=== PATIENT | male | born 1955 | race Caucasian/White ===

== ENCOUNTER 2023-02-15 11:35 | Outpatient (CLI) | payer MEDICARE, SELFPAY | END 2023-02-15 11:36 | disposition home or self-care (01) | LOC: NFLDREF 02-18 12:40 | PROVIDERS: PCP Family Medicine; Referring Provider Family Medicine; Visit Provider Internal Medicine | DX: I25.10 Atherosclerotic heart disease of native coronary artery without angina pectoris (principal); I11.0 Hypertensive heart disease with heart failure; I50.812 Chronic right heart failure; I65.29 Occlusion and stenosis of unspecified carotid artery; Z95.1 Presence of aortocoronary bypass graft; I20.89 Other forms of angina pectoris | CPT/HCPCS: 80061 ==

== ENCOUNTER 2023-02-26 07:49 | Outpatient (CLI) | payer MEDICARE, OTHER, SELFPAY ==
[2023-02-26] MEDS: SODIUM CHLORIDE 0.9 % (FLUSH) 10 ML SYRINGE IVF (09:21)
[2023-02-26] MEDS: REGADENOSON 0.4 MG/5 ML SYRINGE IVP (09:21)
[2023-02-26 09:25] VITALS: BP 147/81; PULSE 61; RESP 16
--- NOTE | 2023-02-26 11:20 | W.PM.STED ---
Stress Test Note Date Date of test: 02/26/23 Providers Primary care provider: Jesus Perez Stress test physician: Rakesh Cisse Stress Test Note Stress test ordered: Lexiscan Indication for test: Coronary disease Stress test medicine: Lexiscan Results discussion: Patient is a very nice 68-year-old gentleman who presents for the above test after discussion the risks benefits and side effects he would like to proceed cardiac stress test medical history form is reviewed entirely. Pretest EKG shows normal sinus rhythm, ventricular rate is 53, blood pressure 153/81. Occasional PVCs are noted, there is some ST wave elevation noted inferiorly and laterally, 1 mm noted on the baseline tracing. Standard Lexiscan protocol is done over a time course of 5 minutes. He tolerated this well and was asymptomatic, review of the tracing showed no evidence of any ST wave irregularities, or dysrhythmias. Impression: Negative electrographic portion of Lexiscan Follow up suggested: Await nuclear images these will be read by Cardiology and nuclear Medicine, patient was asymptomatic and left this testing facility in good condition. Clinical correlation will be needed with the remainder of the information.
== END 2023-02-26 10:06 | disposition home or self-care (01) ==
LOC: STRESS 07:54
PROVIDERS: PCP Family Medicine; Visit Provider Family Medicine
DX: I65.29 Occlusion and stenosis of unspecified carotid artery (principal); Z95.1 Presence of aortocoronary bypass graft; I20.89 Other forms of angina pectoris
CPT/HCPCS: 78452; 93016; 93017; A9500; J2785

== ENCOUNTER 2023-03-22 07:53 | Outpatient (CLI) | payer MEDICARE, OTHER, SELFPAY | END 2023-03-22 07:54 | disposition home or self-care (01) | LOC: RAD 07:54 | PROVIDERS: PCP Family Medicine; Visit Provider Internal Medicine | DX: I50.812 Chronic right heart failure (principal); I35.1 Nonrheumatic aortic (valve) insufficiency; I07.1 Rheumatic tricuspid insufficiency; I11.0 Hypertensive heart disease with heart failure | CPT/HCPCS: 93306 ==

== ENCOUNTER 2023-05-14 07:57 | Outpatient (CLI) | payer MEDICARE, OTHER, SELFPAY ==
--- OUTSIDE RECORDS SUMMARY | 2023-05-17 14:43 | XMS_ITS | Clinical Summary ---
Author Name Unknown Organization [facility] [employer] Address [place], [place] [address] Care Team Providers Care Press Operator [employer] Name Role Phone Zunilda Arroyo NP Unavailable [phone] Zunilda Arroyo NP Primary Care Provider Allergies Active Allergy Reactions Criticality Noted Date Comments Jeffry Inhibitors Cough High 12/08/2013 Amoxicillin *Unknown,Rash High 12/27/2011 Ampicillin *Unknown Cephalosporins *Unknown,Rash High 05/11/2013 Per allergy testing in [place] [facility] Dust Mite Cough Medium 12/27/2011 Levofloxacin Itching,Rash Low 04/03/2019 Niacin *Unknown OK if using the Flush Free Penicillins Rash Prednisone *Unknown 04/10/2019 Caused damage to retina/eye, was on long-term Medications Medication Sig Dispensed Refills Start Date End Date Status MULTIVITAMIN TAB take 1 tablet by oral route once daily with food 0 01/08/2006 Active sildenafil citrate (VIAGRA) 50 mg tablet Take 50 mg by mouth. 0 09/17/2017 Active fluticasone (50 mcg per actuation) nasal solution (FLONASE) Inhale 1 [place] in the nostril(s). 0 02/13/2019 Active diclofenac topical (VOLTAREN) 1 % gel Apply 2 g topically to affected area(s). 0 05/08/2019 Active acetaminophen (TYLENOL EXTRA STRGTH) 500 mg tablet Take 500-1,000 mg by mouth. 0 02/13/2019 Active mycophenolate (CELLCEPT) 250 mg capsule Takes 2 po in morning and 1 po in the evening. 0 02/11/2020 Active metoprolol tartrate (LOPRESSOR) 50 mg tabletIndications:Ath erosclerosis of coronary artery, angina presence unspecified, unspecified vessel or lesion type, unspecified whether [place] or transplanted heart Take 1 Tablet (50 mg) by mouth 2 times daily. 270 tablet. 3 07/21/2020 Active tacrolimus (PROGRAF) 0.5 mg capsule Take 0.5 mg by mouth once daily in the evening. 0 10/14/2020 Active tacrolimus (PROGRAF) 1 mg capsule Take 1 mg by mouth once daily in the evening. 0 10/14/2020 Active calcium carbonate-vitamin D3, 600 mg-400 unit, 600 mg-10 mcg (400 unit) tabletIndications:Ost eopenia, unspecified location Take 1 Tablet by mouth once daily with a meal. 200 tablet. 4 08/23/2021 Active aspirin (ECOTRIN) 81 mg enteric coated tablet Take 1 Tablet (81 mg) by mouth once daily with a meal. 0 Active magnesium oxide (MAG-OX 400) 400 mg tabletIndications:Hyp omagnesemia Take 1 Tablet (400 mg) by mouth two times daily. 1 Tablet 0 01/22/2022 Active nitroglycerin (NITROSTAT) 0.4 mg sublingual tabletIndications:Pre sence of aortocoronary bypass graft PLACE 1 TABLET UNDER THE TONGUE EVERY 10 MINUTES NEEDED FOR CHEST PAIN. 25 Tablet 11 01/23/2022 Active sour smart extract (Tart Smart Extract) 1,000 mg cap Take by mouth. 0 04/03/2022 Active albuterol HFA (PRO-AIR; VENTOLIN; PROVENTIL) 90 mcg/actuation inhalerIndications:Wh eezing Inhale 1-2 Puffs by mouth every 4 hours if needed for Shortness Of Breath. 1 Each 0 08/22/2022 Active allopurinoL (ZYLOPRIM) 100 mg tabletIndications:Gou t, unspecified cause, unspecified chronicity, unspecified site Take 1 Tablet (100 mg) by mouth two times daily. 180 Tablet 2 08/28/2022 Active colchicine 0.6 mg tabletIndications:Gou t, unspecified cause, unspecified chronicity, unspecified site TAKE 1 TABLET (0.6 MG) BY MOUTH AT ONSET OF GOUT, THEN TAKE 1 TABLET 2 HOURS LATER. 8 Tablet 2 08/28/2022 Active famotidine (PEPCID) 20 mg tablet Take 1 Tablet (20 mg) by mouth 2 times daily if needed. 0 08/28/2022 Active ferrous sulfate, 65 mg elemental, tabletIndications:Low ferritin level,RLS (restless legs syndrome) Take 1 Tablet (325 mg) by mouth every Saturday, Saturday and Saturday. 180 Tablet 3 08/28/2022 Active furosemide (LASIX) 20 mg tabletIndications:Ped al edema Take 1 Tablet (20 mg) by mouth every morning. 90 Tablet 3 08/28/2022 Active rOPINIRole (REQUIP) 0.5 mg tabletIndications:PLM D (periodic limb movement disorder) Take 3 Tablets (1.5 mg) by mouth at bedtime. 270 Tablet 3 10/24/2022 Active amLODIPine (NORVASC) 5 mg tabletIndications:Acq uired renal artery stenosis (HC) Take 1 Tablet (5 mg) by mouth once daily. 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 amiodorone x 1 month then DC. Gastroesophageal reflux disease 02/13/2019 Overview: EDG 2020 reactive gastropathy, negative bx Nondependent alcohol abuse, in remission 019 Overview: Quit June 2017 Quit June 2017 Stenosis of left carotid artery 08/22/2018 Overview: U/s June 2022- mild less than 50%. 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, end- stage renal disease and renal transplant in 2013 Immunodeficiency due to drugs 09/20/2017 Osteopenia of multiple sites 08/10/2016 Overview: BMD apr 2019 [place] Visual field defect 01/06/2016 Basal cell papilloma 06/30/2015 Multiple benign melanocytic nevi 06/30/2015 Tear film insufficiency 11/09/2013 Allergy status to penicillin 05/11/2013 Acquired renal artery stenosis 04/07/2010 Overview: Left Renal Artery Stenosis dx at [facility] 10-17-2010 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 Systemic lupus erythematosus 12/12/2006 DYSLIPIDEMIA 01/08/2006 Overview: FAMILY HISTORY OF PREMATURE CARDIOVASC DIS (ISCH EMIC) 01/08/2006 Arteriosclerosis of coronary artery 04/25/2005 Overview: Stenting of the proximal LAD at the [facility] in February of 1997 Left Renal Artery Stenosis dx at [facility] 10-17-2010 Added automatically from request for surgery [id number] Last Assessment & Plan: PCI/stent LAD 1996. CABG January 2019 Left Renal Artery Stenosis dx at [facility] 10-17-2010 Added automatically from request for surgery [id number] Last Assessment & Plan: PCI/stent LAD 1996. Immunosuppressed status Resolved Problems Problem Noted Date Diagnosed Date Resolved Date Acute pericarditis 10/07/2019 0 Bradycardia, sinus 02/17/2019 0 Overview: Last Assessment & Plan: Provoked- during hospitalization post CABG january 2019. amiodorone x 1 month then DC. Encounters Date Type Department Care Team Description 04/16/2023 Refill [facility] [address] [place] [address] Zunilda Arroyo, FIRST BEATER Refill Request [facility]) [facility] [address] [place] [address] Nas Marie NP Refill Request (Amlodipine) 03/25/[address] [place] [address] Curtis Ruiz MD Results 03/22/2023 8:00 AM TECHNICAL OPERATIONS MANAGER Ancillary Procedure [facility] [address] [place] [address] 03/22/2023 Travel 02/27/[address] [place] [address] Curtis Ruiz MD Results 02/26/2023 8:30 AM TECHNICAL OPERATIONS MANAGER Ancillary Procedure [facility] [address] [place] [address] 02/15/2023 11:00 AM CDT Office Visit [facility] [address] [place] [address] Curtis Ruiz MD from Last 3 Months Immunizations Name Administration Dates Next Due AMB Influenza, IIV4 PF (=>6 mos Flulaval,Fluzone Fluarix)(Flu Clinic Only) 02/09/2020 COVID-19 vaccine (Moderna 100mcg/0.5mL) PF, MDV 09/20/2021,05/15/2021 COVID-19 vaccine (Loaded Commerce Qwilr 30mcg/0.3mL) PF, MDV 06/03/2020,05/13/2020 DT (Age < 7 years) 08/20/2002 Hepatitis A (Adult) 06/29/2015,03/26/2013 Hepatitis B (Adult) 04/23/2013 Hepatitis B, Unspecified 04/23/2013 Influenza A (H1N1), Inactiva ninoska (Age >=3 Years) 05/11/2009 Influenza RIV4 (Age 18+ Year s) PRESERV FREE 02/01/2022 Influenza Virus, Unspecified 01/18/2017, 02/03/2016,01/20/2015,2013,02/05/2013,01/21/2012,02/20/2011,1 ,02/23/2010,12/21/2009, 009,03/06/2007,02/11/2004 Influenza, High-dose Inactivated 01/30/2019 Influenza, IIV3 (Age 6-35 mos) 12/21/2009 Influenza, IIV3 (Age >=3 years) 01/12/2012,01/26,02/11/2004 Influenza, IIV4 01/18/2017,02/03/2016 Influenza, IIV4 (=>6mos) MDV 02/14/2018,01/21/20 15 Influenza, Inactivated AIIV4 (Age 65+ Years) Preserv Free 01/27/2021 MMR 09/18/1996 Pneumococcal Poly,23-Valent (Pneumovax) 03/23/2021,02/05/2013,04/22/2009,1998 Pneumococcal conj 13-Valent (Prevnar 13) 06/29/2015 Pneumococcal conj 7-Valent ( Prevnar 7) 04/25/1998 Recombivax Hb (dialysis) 06/29/2015,03/26/2013 TD, UNSPECIFIED 04/22/2005 Td (Age >=7 Years) 10/05/2011, 6,08/20/2002,1990 Tdap 02/05/2013,04/22/2005 Zoster (Shingrix-RZV, recombinant) 08/22/2018, Zoster (Zostavax-ZVL, live) 03/26/2013 Family History Medical History Relation Name Comments Coronary artery disease Brother 1 Edward Heart attack Brother 1 Edward Rheum arthritis Brother 1 Edward Rheum arthritis Brother 2 Abdulaziz Coronary artery disease Brother 3 Carlos Coronary artery disease Brother 4 Chuck Coronary artery disease Brother 5 Yan Heart attack Brother 5 Yan Colon polyps Brother 6 Ismael Coronary artery disease Father Edward Heart attack Father Edward Coronary artery disease Paternal Grandfather Edward Heart attack Paternal Grandfather Edward Cancer-ovarian Sister Relation Name Status Comments Brother 1 Edward Brother 2 Abdulaziz Brother 3 Carlos Brother 4 Chuck Brother 5 Yan Brother 6 Ismael Alive Father Edward Paternal Grandfather Edward Sister Social History Tobacco Use Types Packs/Day Years Used Date Smoking Tobacco: Never Smokeless Tobacco: Never Alcohol Use Standard Drinks/Week Comments Not Currently 0 (1 standard drink = 0.6 oz pur e alcohol) PHQ-2 Answer Date Recorded PHQ-2 TOTAL SCORE 1 08/28/2022 Social Connections Answer Date Recorded Frequency of Communication with Friends and Fami ly Not on file 04/12/2021 Financial Resource Strain Answer Date R ecorded Difficulty of Paying Living Expenses Not on file 04/12/2021 Difficulty of Paying Living Expenses Not on file 04/12/2021 Sex and Gender Information Value Date Recorded Sex Assigned at Male 05/26/2020 10:46 PM TECHNICAL OPERATIONS MANAGER Gender Identity Male 05/26/2020 10:46 PM TECHNICAL OPERATIONS MANAGER Sexual Orientation Straight 05/26/2020 10 :46 PM TECHNICAL OPERATIONS MANAGER Obstetrics History Last Filed Vital Signs Vital Sign Reading Time Taken Comments Blood Pressure 134/70 08/28/2022 7:54 AM CDT Pulse 56 08/28/2022 7:54 AM CDT Temperature 36.6 ??C (97.9 ??F) 08/28/2022 7:54 AM CD T Respiratory Rate 16 08/28/2022 7:54 AM CDT Oxygen Saturation 98% 08/28/2022 7:54 AM CDT Inhaled Oxygen Concentration - - Weight 87.5 kg (192 lb 14.4 oz) 08/28/2022 7:54 AM CDT Height 175.5 cm (5' 9.09) 08/28/2022 7:54 AM CD T Body Mass Index 28.41 08/28/2022 7:54 AM CDT Plan of Treatment Health Maintenance Due Date Last Done Comments Influenza for age 65+ 12/21/2022 02/01/2022 , 01/27/2021, 02/09/2020, Additional history exists Tetanus booster 02/05/2023 02/05/2013, 09/20, 04/22/2005, Additional history exists COVID-19 vaccine series ( season) 2023 01/22/2023, 10/11/2022, 02/01/2022, Additional history exists Medicare Wellness for age 65+ 08/28/2023 08/28/2022, 08/23/2021, 06/13/2020 BMI (ht and wt on same day) for age 18+ 08/29/2023 08/28/2022, 04/03/2022, 01/10/2022, Additional history exists Depression screening for age 12+ 08/29/2023 08/28/2022, 08/23/2021, 06/21/2020, Additional history exists Lipids for age 45-75 07/11/2026 07/11/2021, 06/08/2020, 05/07/2019 (Verified in Care Everywhere or Patient Record), Additional history exists Colonoscopy through age 75 11/23/203011/23, 10/22/2011, 10/22/2011 (Verified in Care Everywhere or Patient Record) Tdap Completed 02/05/2013, 04/22/2005 Zoster (shingles) series for age 50+ Completed 08/22/2018, 03/28/2018, 03/26/2013 Hepatitis C screening for age 18-79 Addressed 10/05/2019 (Verified in Care Everywhere or Patient Record) Overridden with the intention of not completing the topic Pneumococcal series for age 65+ Completed 03/23/2021, 06/29/2015, 02/05/2013, Additional history exists Procedures Procedure Name Priority Date/Time Associated Diagnosis Comments ECHO TTE COMPLETE WO CONTRAST Routine 03/22/2023 8:50 AM TECHNICAL OPERATIONS MANAGER Chronic right heart failure (HC) NM CARDIAC MPI STRESS TEST Routine 02/26/2023 2:33 PM TECHNICAL OPERATIONS MANAGER Occlusion and stenosis of unspecified carotid artery from Last 3 Months Results * ECHO TTE COMPLETE WO CONTRAST (03/22/2023 8:50 AM TECHNICAL OPERATIONS MANAGER) AORTIC VALVE MEAN PG 5 mmHg EJECTION FRACTION 72 % PEAK TR VELOCITY 2.2 m/s LVEDD 4.8 cm EJECTION FRACTION 60 - 65% Anatomical Region Laterality Modality Ultrasound 03/22/2023 8:12 AM TECHNICAL OPERATIONS MANAGER Narrative 03/22/2023 9:02 AM TECHNICAL OPERATIONS MANAGER ECHOCARDIOGRAM JARETT GUPTA ?Accession#: ?? [id number] : ?1955 68 years Study Date: ?? 03/22/2023 8:12:56 AM Gender: M ? BP: ? 134/70 mmHg Height: 175.00 cm ? BSA: ?2.03 m? ? ? Weight: 87.00 kg ?Tech: ? MTS ?Referring MD: CURTIS RUIZ Site: ? [facility] Reading Location: MOBILE OP Patient Location: Outpatient. Procedure: 2D, Color Doppler and Spectral Doppler. Indication for study: Chronic right heart failure (HC) Cardiac Rhythm: Regular.Study quality: Good. Final Impressions: 1. Normal LV size, normal wall thickness, normal global systolic function with an estimated EF of 60 - 65%. 2. Right ventricular cavity size is normal, global systolic RV function is borderline reduced. 3. The aortic valve is sclerotic and trileaflet, no stenosis and trivial regurgitation. 4. Normal estimated pulmonary pressures by tricuspid regurgitation velocity and right atrial pressure (20 mmHg plus RAP). Comparison Compared to prior exam of 10/17/2021, there has been no significant change. Chamber Sizes and Function Normal left ventricular size, normal wall thickness, normal global systolic function with an estimated EF of 60 - 65%. Left atrial size is normal. Right ventricular cavity size is normal, global systolic RV function is borderline reduced. The right atrium is normal. Right atrial volume index is 20 ml/m? ? ?. Right atrial area is 19 cm? ? ?. The pulmonary artery is of normal size and origin. The sinus of Valsalva is normal sized. The ascending aorta is normal sized. Valves, RV Pressures and Diastolic Function The aortic valve is sclerotic and trileaflet, no stenosis and trivial regurgitation. The mitral valve is normal in structure, trace mitral regurgitation. Indeterminate pattern of LV diastolic filling. The tricuspid valve is normal in structure. Tricuspid regurgitation is trace regurgitation. The tricuspid regurgitant velocity is 2.2 m/s, the estimated right ventricular systolic pressure is 20 mmHg plus right atrial pressure. There is normal estimated pulmonary pressure by tricuspid regurgitation velocity and right atrial pressure. The pulmonic valve is normal. Trace pulmonary regurgitation. Masses, Effusion, Shunts There is no pericardial effusion. The inferior vena cava is normal sized, respiratory size variation greater than 50%. No left to right shunting was detected by limited color flow Doppler interrogation of the interatrial septum. MEASUREMENTS AND CALCULATIONS 2-D Measurements and LV Function: LVID (d) 4.8 cm LV FS% (2D) ?? 36 % LVID (s) 3.1 cm LVOT diameter 2.6 cm IVS (d) ??1.0 cm HR ?62 bpm LVPW (d) 1.1 cm LA Vol index ??27 ml/m2 Ao Sinus 3.7 cm RA Vol index ??20 ml/m2 Asc Ao ?? 3.8 cm RA area ? 19 cm? ? ? LA ? 3.9 cm RV Max 4C (d) 4.5 cm Diastology: Mitral ?Tissue Doppler ?Pulmonary veins E Peak 0.4 m/s ??e', Septum ? 0.05 m/s Pulm s ?44.1 cm/s A Peak 0.7 m/s ??e', Lateral ?0.09 m/s Pulm d ?38.0 cm/s E/A ?0.6 ?E/e' Average ?? 5.90 ? Pulm s/d ratio ??1.16 DT ? 456 msec Aortic Valve: Vmax ? 1.5 m/s ??CELESTE (V) ?? 2.95 cm? ? ? VTI ?0.33 m ?? CELESTE (I) ?? 2.66 cm? ? ? LVOT V max 0.8 m/s ??Max PG ?9 mmHg LVOT VTI ?? 0.16 m ?? Mean PG ?? 5 mmHg SV ? 88 ml ?Dim Index 0.50 SV index ?? 43 ml/m? ? ? CO ?5.4 l/min ?CI ?2.7 l/min/m? ? ? Mitral Valve: MVA ?1.7 cm? ? ? MV P 1/2 132 msec Tricuspid Valve and estimated PA pressures: TR Vmax 2.2 m/s TR maxG 20 mmHg Pulmonic Valve: PIEDV 1.2 m/s . This study was interpreted by an [facility] accredited facility. CC: [facility] ([facility]. ??Final ?? Procedure Note Parveen Jaimes MD - 03/22/2023 ECHOCARDIOGRAM JARETT GUPTA : 1955 68 years Study Date: 03/22/2023 8:12:56 AM Gender: M BP: 134/70 mmHg Height: 175.00 cm BSA: 2.03 m? ? ? Weight: 87.00 kg Tech: [facility] Referring MD: CURTIS RUZI Site: [facility] Reading Location: MOBILE OP Patient Location: Outpatient. Procedure: 2D, Color Doppler and Spectral Doppler. Indication for study: Chronic right heart failure (HC) Cardiac Rhythm: Regular.Study quality: Good. Final Impressions: 1. Normal LV size, normal wall thickness, normal global systolic functionwith an estimated EF of 60 - 65%. 2. Right ventricular cavity size is normal, global systolic RV functionis borderline reduced. 3. The aortic valve is sclerotic and trileaflet, no stenosis and trivialregurgitation. 4. Normal estimated pulmonary pressures by tricuspid regurgitationvelocity and right atrial pressure (20 mmHg plus RAP). Comparison Compared to prior exam of 10/17/2021, there has been no significantchange. Chamber Sizes and Function Normal left ventricular size, normal wall thickness, normal globalsystolic function with an estimated EF of 60 - 65%. Left atrial size isnormal. Right ventricular cavity size is normal, global systolic RVfunction is borderline reduced. The right atrium is normal. Right atrialvolume index is 20 ml/m? ? ?. Right atrial area is 19 cm? ? ?. The pulmonaryartery is of normal size and origin. The sinus of Valsalva is normalsized. The ascending aorta is normal sized. Valves, RV Pressures and Diastolic Function The aortic valve is sclerotic and trileaflet, no stenosis and trivialregurgitation. The mitral valve is normal in structure, trace mitralregurgitation. Indeterminate pattern of LV diastolic filling. Thetricuspid valve is normal in structure. Tricuspid regurgitation is traceregurgitation. The tricuspid regurgitant velocity is 2.2 m/s, theestimated right ventricular systolic pressure is 20 mmHg plus right atrialpressure. There is normal estimated pulmonary pressure by tricuspidregurgitation velocity and right atrial pressure. The pulmonic valve isnormal. Trace pulmonary regurgitation. Masses, Effusion, Shunts There is no pericardial effusion. The inferior vena cava is normal sized,respiratory size variation greater than 50%. No left to right shunting wasdetected by limited color flow Doppler interrogation of the interatrialseptum. MEASUREMENTS AND CALCULATIONS 2-D Measurements and LV Function: LVID (d) 4.8 cm LV FS% (2D) 36 % LVID (s) 3.1 cm LVOT diameter 2.6 cm IVS (d) 1.0 cm HR 62 bpm LVPW (d) 1.1 cm LA Vol index 27 ml/m2 Ao Sinus 3.7 cm RA Vol index 20 ml/m2 Asc Ao 3.8 cm RA area 19 cm? ? ? LA 3.9 cm RV Max 4C (d) 4.5 cm Diastology: Mitral Tissue Doppler Pulmonary veins E Peak 0.4 m/s e', Septum 0.05 m/s Pulm s 44.1 cm/s A Peak 0.7 m/s e', Lateral 0.09 m/s Pulm d 38.0 cm/s E/A 0.6 E/e' Average 5.90 Pulm s/d ratio 1.16 DT 456 msec Aortic Valve: Vmax 1.5 m/s CELESTE (V) 2.95 cm? ? ? VTI 0.33 m CELESTE (I) 2.66 cm? ? ? LVOT V max 0.8 m/s Max PG 9 mmHg LVOT VTI 0.16 m Mean PG 5 mmHg SV 88 ml Dim Index 0.50 SV index 43 ml/m? ? ? CO 5.4 l/min CI 2.7 l/min/m? ? ? Mitral Valve: MVA 1.7 cm? ? ? MV P 1/2 132 msec Tricuspid Valve and estimated PA pressures: TR Vmax 2.2 m/s TR maxG 20 mmHg Pulmonic Valve: PIEDV 1.2 m/s . This study was interpreted by an [facility] accredited facility. CC: [facility] ([facility]) [facility]. Final Curtis Ruiz MD ECHO ORD * NM CARDIAC MPI STRESS TEST (02/26/2023 2:33 PM TECHNICAL OPERATIONS MANAGER) Anatomical Region Laterality Modality HEART Ultrasound 02/26/2023 8:21 AM TECHNICAL OPERATIONS MANAGER Narrative 02/26/2023 3:02 PM TECHNICAL OPERATIONS MANAGER ? Toll -free: [phone] ?[facility] ? MYOCARDIAL PERFUSION IMAGING REPORT REST/STRESS SINGLE ISOTOPE GATED SPECT IMAGING Patient Name: ?? JARETT GUPTA ? Gender: M ? Height: 69 in Accession #: ?[id number] ?Weight: 187 lb Study Date: ? 02/26/2023 8:21:39 AM ? BSA: ?2.01 m? ? ? : ?1955 68 years ?BMI: ?27.61 kg/m? ? ? Ord. Prov.: ? JOSEPH ACEVEDO Performing Site [facility] Clinical History: ? Chest pain. Known coronary artery disease. Cardiac Risk Factors: Hypertension and hypercholesterolemia. Cardiac History: ?PCI 1996. CAB x2, 2019. Beta andre/calcium channel andre/nitrate taken today: Yes. Caffeine/methylxanthine taken within 12 hrs: ?No. Chest pain/discomfort at baseline: ?No. IMPRESSION 1. Myocardial perfusion was normal. 2. Left ventricular cavity size was normal (resting EDV 113 ml). 3. Overall left ventricular systolic function was normal without wall motion abnormalities. The post stress LVEF was calculated to be 74 %. 4. See separate report for EKG intrepretation. 5. There were no prior studies available for comparison. STRESS MPI PROCEDURE The patient was studied utilizing a same day rest/stress protocol. Myocardial perfusion imaging was performed at rest, 20 minutes following the intravenous injection of 8.41 mCi of 99mTc sestamibi. 30 seconds after the 15 second IV regadenoson injection, the patient was injected via IV with 31.7 mCi of 99mTc sestamibi. Gated post-stress tomographic imaging was performed 30 minutes after stress. After image acquisition was completed, data was reconstructed in short, horizontal long and vertical long axis views and tomographic slices were generated. - Pharmacologic stress testing was performed with an IV regadenoson dose of 0.4 mg. - No low level exercise was performed. - Resting heart rate was 52 bpm, peak heart rate was 80 bpm. - Resting blood pressure was 153/81 mmHg; peak blood pressure was 171/81 mmHg. FINDINGS Imaging - The overall quality of the study was excellent with mild soft tissue attenuation on rest and stress studies. Computerized motion correction was not applied. - SPECT perfusion images were normal without evidence of ischemia or infarction. - Computer processed gated imaging revealed normal left ventricular size with a calculated LVEF of 74 %. (Lab normals: LVEF >50%, LV Size <150 ml). - There was normal post-stress myocardial thickening and wall motion. - No right ventricular abnormalities were identified. - There was no evidence of abnormal lung or extracardiac activity. - Risk/extent of ischemia per ACC Noninvasive Risk Stratification Guideline: LOW RISK. This study was interpreted and electronically signed by Jigar Lopez MD on 02/26/2023 2:50:04 PM. ??Final (Updated) ?? Procedure Note Jigar Lopez MD - 02/26/2023 Toll -free: [phone] [facility] MYOCARDIAL PERFUSION IMAGING REPORT REST/STRESS SINGLE ISOTOPE GATED SPECT IMAGING Patient Name: JARETT GUPTA Gender: Ministerio Height: 69 in Weight: 187 lb Study Date: 02/26/2023 8:21:39 AM BSA: 2.01 m? ? ? : 1955 68 years BMI: 27.61 kg/m? ? ? Ord. Prov.: JOSEPH ACEVEDO Performing Site [facility] Clinical History: Chest pain. Known coronary artery disease. Cardiac Risk Factors: Hypertension and hypercholesterolemia. Cardiac History: PCI 1996. CAB x2, 2019. Beta andre/calcium channel andre/nitrate taken today: Yes. Caffeine/methylxanthine taken within 12 hrs: No. Chest pain/discomfort at baseline: No. IMPRESSION 1. Myocardial perfusion was normal. 2. Left ventricular cavity size was normal (resting EDV 113 ml). 3. Overall left ventricular systolic function was normal without wallmotion abnormalities. The post stress LVEF was calculated to be 74 %. 4. See separate report for EKG intrepretation. 5. There were no prior studies available for comparison. STRESS MPI PROCEDURE The patient was studied utilizing a same day rest/stress protocol.Myocardial perfusion imaging was performed at rest, 20 minutes followingthe intravenous injection of 8.41 mCi of 99mTc sestamibi. 30 seconds afterthe 15 second IV regadenoson injection, the patient was injected via IVwith 31.7 mCi of 99mTc sestamibi. Gated post-stress tomographic imagingwas performed 30 minutes after stress. After image acquisition wascompleted, data was reconstructed in short, horizontal long and verticallong axis views and tomographic slices were generated. - Pharmacologic stress testing was performed with an IV regadenoson doseof 0.4 mg. - No low level exercise was performed. - Resting heart rate was 52 bpm, peak heart rate was 80 bpm. - Resting blood pressure was 153/81 mmHg; peak blood pressure was 171/81mmHg. FINDINGS Imaging - The overall quality of the study was excellent with mild soft tissue attenuation on rest and stress studies. Computerized motion correction wasnot applied. - SPECT perfusion images were normal without evidence of ischemia orinfarction. - Computer processed gated imaging revealed normal left ventricular sizewith a calculated LVEF of 74 %. (Lab normals: LVEF >50%, LV Size <150 ml). - There was normal post-stress myocardial thickening and wall motion. - No right ventricular abnormalities were identified. - There was no evidence of abnormal lung or extracardiac activity. - Risk/extent of ischemia per ACC Noninvasive Risk StratificationGuideline: LOW RISK. This study was interpreted and electronically signed by Jigar Lopez MD on 02/26/2023 2:50:04 PM. Final (Updated) Curtis Ruiz MD NM from Last 3 Months Care Teams Press Operator [employer] Relationship Specialty Start Date End Date Zunilda Arroyo NP [address] [place] [address] PCP - General Family Practice 10/12/19 Zunilda Arroyo NP Family Practice 06/06/19
== END 2023-05-14 07:58 | disposition home or self-care (01) ==
LOC: NFLDREF 05-17 14:39
PROVIDERS: PCP Family Medicine; Referring Provider Family Medicine; Visit Provider Family Medicine
DX: I25.10 Atherosclerotic heart disease of native coronary artery without angina pectoris (principal); I11.0 Hypertensive heart disease with heart failure; I50.812 Chronic right heart failure; Z13.220 Encounter for screening for lipoid disorders
CPT/HCPCS: 80053; 80061

== ENCOUNTER 2023-11-11 20:58 | Outpatient (CLI) | payer MEDICARE, OTHER, SELFPAY ==
--- OUTSIDE RECORDS SUMMARY | 2023-11-11 21:02 | XMS_ITS | Clinical Summary ---
Author Organization [facility] Address [place], [place] [address] Care Team Providers Care Director Of Hospitality Name Role Phone Zunilda Arroyo NP Unavailable [phone] Zunilda Arroyo NP Primary Care Provider Allergies Active Allergy Reactions Criticality Noted Date Comments Jeffry Inhibitors Cough High 12/08/2013 Amoxicillin *Unknown,Rash High 12/27/2011 Ampicillin *Unknown Cephalosporins *Unknown,Rash High 05/11/2013 Per allergy testing in [facility] Dust Mite Cough Medium 12/27/2011 Levofloxacin Itching,Rash Low 04/03/2019 Niacin *Unknown OK if using the Flush Free Penicillins Rash Prednisone *Unknown 04/10/2019 Caused damage to retina/eye, was on long-term Medications Medication Sig Dispensed Refills Start Date End Date Status MULTIVITAMIN TAB take 1 tablet by oral route once daily with food 0 6 Active sildenafil citrate (VIAGRA) 50 mg tablet Take 50 mg by mouth. 8 Active fluticasone (50 mcg per actuation) nasal solution (FLONASE) Inhale 1 [place] in the nostril(s). 9 Active diclofenac topical (VOLTAREN) 1 % gel Apply 2 g topically to affected area(s). 0 Active acetaminophen (TYLENOL EXTRA STRGTH) 500 mg tablet Take 500-1,000 mg by mouth. 9 Active mycophenolate (CELLCEPT) 250 mg capsule Takes 2 po in morning and 1 po in the evening. 0 0 Active metoprolol tartrate (LOPRESSOR) 50 mg tabletIndications:A therosclerosis of coronary artery, angina presence unspecified, unspecified vessel or lesion type, unspecified whether [place] or transplanted heart Take 1 Tablet (50 mg) by mouth 2 times daily. 270 tablet. 3 1 Active tacrolimus (PROGRAF) 0.5 mg capsule Take 0.5 mg by mouth once daily in the evening. 1 Active tacrolimus (PROGRAF) 1 mg capsule Take 1 mg by mouth once daily in the evening. 1 Active calcium carbonate-vitamin D3, 600 mg-400 unit, 600 mg-10 mcg (400 unit) tabletIndications:O steopenia, unspecified location Take 1 Tablet by mouth once daily with a meal. 200 tablet. 4 2 Active aspirin (ECOTRIN) 81 mg enteric coated tablet Take 1 Tablet (81 mg) by mouth once daily with a meal. 0 Active magnesium oxide (MAG-OX 400) 400 mg tabletIndications:H ypomagnesemia Take 1 Tablet (400 mg) by mouth two times daily. 1 Tablet 2 Active nitroglycerin (NITROSTAT) 0.4 mg sublingual tabletIndications:P resence of aortocoronary bypass graft PLACE 1 TABLET UNDER THE TONGUE EVERY 10 MINUTES NEEDED FOR CHEST PAIN. 25 Tablet 11 2 Active sour smart extract (Tart Smart Extract) 1,000 mg cap Take by mouth. 0 2 Active albuterol HFA (PRO-AIR; VENTOLIN; PROVENTIL) 90 mcg/actuation inhalerIndications: Wheezing Inhale 1-2 Puffs by mouth every 4 hours if needed for Shortness Of Breath. 1 Each 3 Active allopurinoL (ZYLOPRIM) 100 mg tabletIndications:G out, unspecified cause, unspecified chronicity, unspecified site Take 1 Tablet (100 mg) by mouth two times daily. 180 Tablet 2 3 Active colchicine 0.6 mg tabletIndications:G out, unspecified cause, unspecified chronicity, unspecified site TAKE 1 TABLET (0.6 MG) BY MOUTH AT ONSET OF GOUT, THEN TAKE 1 TABLET 2 HOURS LATER. 8 Tablet 2 3 Active famotidine (PEPCID) 20 mg tablet Take 1 Tablet (20 mg) by mouth 2 times daily if needed. 0 3 Active ferrous sulfate, 65 mg elemental, tabletIndications:L ow ferritin level,RLS (restless legs syndrome) Take 1 Tablet (325 mg) by mouth every Saturday, Saturday and Saturday. 180 Tablet 3 3 Active furosemide (LASIX) 20 mg tabletIndications:P edal edema Take 1 Tablet (20 mg) by mouth every morning. 90 Tablet 3 3 Active rOPINIRole (REQUIP) 0.5 mg tabletIndications:P LMD (periodic limb movement disorder) Take 3 Tablets (1.5 mg) by mouth at bedtime. 270 Tablet 3 3 Active amLODIPine (NORVASC) 5 mg tabletIndications:A cquired renal artery stenosis (HC) Take 1 Tablet (5 mg) by mouth once daily. 90 Tablet 1 3 Active icosapent ethyL (Vascepa) 1 gram capsuleIndications: Hyperlipidemia, unspecified hyperlipidemia type Take 2 g by mouth two times daily with meals. 360 Capsule 3 4 Active rosuvastatin (CRESTOR) 20 mg tabletIndications:H yperlipidemia, unspecified hyperlipidemia type Take 1 Tablet (20 mg) by mouth at bedtime. 90 Tablet 4 Active rosuvastatin (CRESTOR) 20 mg tabletIndications:H yperlipidemia, unspecified hyperlipidemia type TAKE 1 TABLET BY MOUTH EVERYDAY AT BEDTIME 90 Tablet 1 3 10/29/19 24 Discontinued Active Problems Problem Noted Date Diagnosed Date Hypertensive heart disease w ith chronic right-sided congestive heart failure 08/23/2021 PLMD (periodic limb movement disorder) 1 Squamous cell skin cancer 02/11/2020 Overview: April 2019, [facility] Actinic keratosis 02/11/2020 Benign paroxysmal positional [...] multiple sites 08/10/2016 Overview: BMD apr 2019 [facility] field defect 01/06/2016 Basal cell papilloma 06/30/2015 Multiple benign melanocytic nevi 06/30/2015 Tear film insufficiency 11/09/2013 Allergy status to penicillin 05/11/2013 Acquired renal artery stenosis 04/07/2010 Overview: Left Renal Artery Stenosis dx at [facility] 10-17-2010 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 Systemic lupus erythematosus 12/12/2006 DYSLIPIDEMIA 01/08/2006 Overview: FAMILY HISTORY OF PREMATURE CARDIOVASC DIS (ISCH EMIC) 01/08/2006 Arteriosclerosis of coronary artery 04/25/2005 Overview: Stenting of the proximal LAD at the [facility] in February of 1997 Left Renal Artery Stenosis dx at [facility] 10-17-2010 Added automatically from request for surgery [id number] Last Assessment & Plan: PCI/stent LAD 1996. CABG January 2019 Left Renal Artery Stenosis dx at [facility] 10-17-2010 Added automatically from request for surgery [id number] Last Assessment & Plan: PCI/stent LAD 1996. Immunosuppressed status Resolved Problems Problem Noted Date Diagnosed Date Resolved Date Acute pericarditis 10/07/2019 0 Bradycardia, sinus 02/17/2019 0 Overview: Last Assessment & Plan: Provoked- during hospitalization post CABG january 2019. amiodorone x 1 month then DC. Encounters Date Type Department Care Team Description 10/28/[address] [facility] [address] [place] [address] Nas Marie NP Refill Request (Rosuvastatin) 08/28/2023 Transcribe Orders [facility] [address] [place] [address] Jesus Perez MD from Last 3 Months Immunizations Name Administration Dates Next Due AMB Influenza, IIV4 PF (=>6 mos Flulaval,Fluzone Fluarix)(Flu Clinic Only) 02/09/2020 COVID-19 vaccine (Moderna 100mcg/0.5mL) PF, MDV 09/20/2021,05/15/2021 COVID-19 vaccine (Pfizer-Bio NTech 30mcg/0.3mL) PF, MDV 06/03/2020,05/13/2020 DT (Age < [...] Sex Assigned at Male 05/26/2020 10:[address] ADMINISTRATOR Gender Identity Male 05/26/2020 10:[address] ADMINISTRATOR Sexual Orientation Straight 05/26/2020 10 :[address] ADMINISTRATOR Obstetrics History Last Filed Vital Signs Vital [...] Health Maintenance Due Date Last Done Comments Tetanus booster 02/05/2023 02/05/2013, 09/20, 04/22/2005, Additional history exists COVID-19 vaccine series ( season) 2023 01/22/2023, 10/11/2022, 02/01/2022, Additional history exists BMI (ht and wt on same day) for age 18+ 08/29/2023 08/28/2022, 04/03/2022, 01/10/2022, Additional history exists Depression screening for age 12+ 08/29/2023 08/28/2022, 08/23/2021, 06/21/2020, Additional history exists Medicare Wellness for age 65+ 08/29/2023 08/28/2022, 08/23/2021, 06/13/2020 Influenza for age 65+ 12/22/2023 02/01/2022 , 01/27/2021, 02/09/2020, Additional history exists Lipids for age 45-75 [...] Procedure Name Priority Date/Time Associated Diagnosis Comments LIPID PANEL W REFLEX MEASURED LDL Routine 07/11/2021 8:40 AM CDT Hypertensive heart and chronic kidney disease stage 2 COLONOSCOPY SCREENING Routine 11/23/2020 8:22 AM CDT Screening for colon cancer from Last 3 Months or Most Recently Relevant to Health Maintenance Results * (ABNORMAL) LIPID PANEL W REFLEX MEASURED LDL (07/11/2021 8:40 AM CDT) CHOLESTEROL,TOTAL 140 100 - 199 mg/dL 07/11/2021 11:44 AM CDT [facility] TRIGLYCERIDES 158(H) <150 mg/dL 07/11/2021 11:44 AM CDT [facility] HDL CHOLESTEROL 46 >40 mg/dL 11:44 AM CDT [facility] NON-HDL CHOLESTEROL 94 <145 mg/dl 07/11/2021 11:44 AM CDT [facility] CHOL/HDL RATIO 3.04 <4.50 07/11/2021 11:44 AM CDT [facility] LDL CHOLESTEROL 62 <=130 mg/dL 07/11/2021 11:44 AM CDT [facility] VLDL CHOLESTEROL 32(H) <=30 mg/dL 07/11/2021 11:44 AM CDT [facility] PROVIDER ORDERED STATUS FASTING 07/11/2021 11:44 AM CDT [facility] Blood BLOOD SPECIMEN / Unknown Venipuncture / Unknown 07/11/2021 8:40 AM CDT 07/11/2021 8:42 AM CDT Zunilda Arroyo NP CHEMISTRY [facility] [address] [place] [address] * COLONOSCOPY SCREENING (11/23/2020 8:22 AM CDT) Narrative Daniel Roberts MD - 11/23/2020 8:22 AM CDT Daniel Roberts MD ? 11/23/2020 ??9:02 AM PROCEDURE: Patient: Jarett Gupta ??MR#: [id number] Date of Procedure: 11/23/2020 RECOMMENDATION With regard to colon cancer screening I do feel this patient can be followed as an average risk patient as recommended by the [place] Multi-Society Task Force . I will enter him into the computerized database for consideration for colonoscopy in 10 years. FINDINGS Revealed the bowel prep (Magnesium citrate & dulcolax tabs) to be excellent with excellent visualization of all mucosal surfaces. Colonoscopy was performed to the cecum where the ileocecal valve and appendiceal orifice were identified and the endoscope was transilluminated in the right lower quadrant . There were no significant mucosal abnormalities. Specifically speaking there was no evidence of neoplasia. ??There are uncomplicated sigmoid diverticula. ??Internal hemorrhoids, mild. ORDERING PHYSICIAN: Zunilda Arroyo NP PRIMARY CARE PHYSICIAN: Zunilda Arroyo NP PREOPERATIVE DIAGNOSIS: (Z12.11) Screening for colon cancer (D50.9) Iron deficiency anemia, unspecified iron deficiency anemia type POSTOPERATIVE DIAGNOSIS: Same, sigmoid diverticulosis. ?? Hemorrhoids. PROCEDURE PERFORMED: Administration of moderate sedation, Colonoscopy. Intraservice time see EGD report SURGEON: Daniel Roberts M.D. ANESTHESIA: IV sedation: see EGD report EBL: none DRAINS: None Complications: none INDICATION The patient is a 65 y.o. male who presents for screening colonoscopy. ??He had a colonoscopy on: 10-22-11. PROCEDURE: The patient was taken to the Endoscopy Room. The indications, technical aspects, risks including the potential of bleeding and/or perforation were explained. He stated that he had read the information booklet and requested we proceed with IV sedation. He was cautioned that he should not do anything that requires his full mental attention for the remainder of the day. He agreed. Evaluation of heart, lung, airway, and vital signs revealed no contraindication. Therefore IV sedation was administered and titrated throughout the procedure. In the left lateral decubitus position, after a digital rectal examination was performed, the colonoscope was advanced utilizing standard techniques. It was advanced as noted above. It was then withdrawn with excellent visualization of all mucosal surfaces, retroflexed in the rectal ampulla, returned to forward viewing and removed. The patient tolerated the procedure well. There were no complications. Heena Khan Zunilda Arroyo NP GI PROCEDURE ORD from Last 3 Months or Most Recently Relevant to Health Maintenance Care Teams Director Of Hospitality Relationship Specialty Start Date End Date Zunilda Arroyo NP [address] [place] [address] PCP - General Family Practice 10/12/19 Zunilda Arroyo NP Family Practice 06/06/19
--- OUTSIDE RECORDS SUMMARY | 2023-11-11 21:03 | XMS_ITS | Encounter Summary ---
Author Organization [facility] Address [address] [place] [id number] Care Team Providers Care Hi Ranger Operator Name Role Phone Elsewhere, Pcp Primary Care Provider Unavailabl e Reason for Visit * Reason Onset Date Comments Pre-visit Intake 09/12/2023 Encounter Details Date Type Department Care Team (Latest Contact Info) Description 09/12/2023 1:30 PM CDT Clinical Communication Virtual Review in [place], [place] [address] [place] [address] Pre-visit Intake Social History Tobacco Use Types Packs/Day Years Used Date Smoking Tobacco: Never Smokeless Tobacco: Never Alcohol Use Standard Drinks/Week Comments No 0 (1 standard drink = 0.6 oz pur e alcohol) None since 2016 [facility] Utilities Answer Date Recorded In the past 12 months has e [employer], gas, oil, or water [place] threatened to shut off services in your home? No 09/12/2023 Humiliation, Afraid, Rape, and Kick questionnair e Answer Date Recorded Within the last year, have y ou been afraid of your partner or ex-partner? No 10/01/2022 Within the last year, have y ou been humiliated or emotionally abused in other ways by your partner or ex-partner? No Within the last year, have y ou been kicked, hit, slapped, or otherwise physically hurt by your partner or ex-partner? No 10/01/2022 Within the last year, have y ou been raped or forced to have any kind of sexual activity by your partner or ex-partner? No 10/01/2022 Social Connection and Isolat ion Panel [NHANES] Answer Date Recorded In a typical week, how many times do you talk on the phone with family, friends, or neighbors? Once a week 07/12/2022 How often do you get togethe r with friends or relatives? Once a week 07/12/2022 How often do you attend chur ch or sabianist services? More than 4 times per year 07/12/2022 Do you belong to any clubs o r organizations such as orthodoxy groups, unions, fraternal or athletic groups, or school groups? Yes 07/12/2022 How often do you attend meet ings of the clubs or organizations you belong to? More than 4 times per year 07/12/2022 Are you , , di vorced, , never , or living with a partner? 07/12/2022 AUDIT-C Answer Date Recorded Q1: How often do you have a drink containing alc ohol? Never 07/12/2022 Q2: How many drinks containi ng alcohol do you have on a typical day when you are drinking? 3 or 4 07/12/2022 Q3: How often do you have six or more drinks on one occasion? Monthly 07/12/2022 Overall Financial Resource Strain (CARDIA) Answe r Date Recorded How hard is it for you to pa y for the very basics like food, housing, medical care, and heating? Not hard at all 10/01/2022 PHQ-2 Answer Date Recorded PHQ-2 Score 1 05/04/2019 [facility] - Occupational Stress Questionnaire Answer Date Recorded Do you feel stress - tense, restless, nervous, or anxious, or unable to sleep at night because your mind is troubled all the time - these days? Not at all 07/12/2022 Exercise Vital Sign Answer Date Recorde d On average, how many days pe r week do you engage in moderate to strenuous exercise (like a brisk walk)? 2 days 09/12/2023 On average, how many minutes do you engage in exercise at this level? 20 min 09/12/2023 Hunger Vital Sign Answer Date Recorded Within the past 12 months, y ou worried that your food would run out before you got the money to buy more. Never true 09/12/19 24 Within the past 12 months, t he food you bought just didn't last and you didn't have money to get more. Never true 09/12/2023 PRAPARE - Transportation Answer Date Re corded In the past 12 months, has l ack of transportation kept you from medical appointments or from getting medications? No 08/21 In the past 12 months, has l ack of transportation kept you from meetings, work, or from getting things needed for daily living? No 09/12/2023 Depression Answer Date Recor ded PHQ-9 Total Score (max 27) 2 05/04 Nutrition Answer Date Recorded On average, how many serving s of fruits and vegetables do you eat per day (serving size is equal to 1 cup or approximately the size of a tennis ball)? 3-5 09/12/2023 Dental Answer Date Recorded Dental: Regular Dentist Yes 06/21/19 Employment Answer Date Recorded Employment status Retired 09/12/2023 Housing Stability Answer Date Recorded What is your living situation today? I have a [facility] place to live 09/12/2023 Education Answer Date Recorded What is the highest level of school you have completed or the highest degree you have received? Bachelor's degree (e.g., BA, AB, BS) 01/11/2019 Sex and Gender Information Value Date Recorded Sex Assigned at Male 05/07/2017 7:50 PM DONKEY DOCTOR Gender Identity Male 05/07/2017 7:50 PM DONKEY DOCTOR Sexual Orientation Straight 05/07/2017 7: 50 PM DONKEY DOCTOR documented as of this encounter Plan of Treatment Upcoming Encounters Date Type Department Care Team (Late st Contact Info) Description 11/19/2023 2:00 PM CDT Procedure visit Department of Dermatology in [place], [place] [address] [place] [phone] Caleb Vasquez M.D. [address] [place] [phone] 12/06/2023 7:30 AM CDT Ancillary Procedure Department of Ophthalmology in [place], [place] [address] [place] [phone] Jason Ann M.D. [address] [place] [phone] 12/06/2023 8:00 AM CDT Ancillary Procedure Department of Ophthalmology in [place], [place] [address] [place] [phone] Jason Ann M.D. [address] [place] [phone] 12/06/2023 8:45 AM CDT Procedure visit Department of Ophthalmology in [place], [place] [address] [place] [phone] Jason Ann M.D. [address] [place] [phone] 12/06/2023 9:00 AM CDT Ancillary Procedure Department of Ophthalmology in [place], [place] [address] [place] [phone] Jason Ann M.D. [address] [place] [phone] 12/06/2023 9:30 AM CDT Office Visit Department of Ophthalmology in [place], [place] [address] [place] [phone] Jason Ann M.D. [address] [place] [phone] documented as of this encounter Visit Diagnoses Not on filedocumented in this encounter Additional Health Concerns Infection Onset Date Last Indicated Resolved Time Protective Environment 07/31/2022 07/31/2022 Assessment Noted Time PHQ-9 Depression Total Score: 2 05/04/19 20 7:49 PM DONKEY DOCTOR documented as of this encounter Care Teams Hi Ranger Operator Relationship Specialty Start Date End Date Elsewhere, Pcp PCP - General Family Medicine 06/20/19 Dr Miguel A Jeffries [address] [place] [phone] Laboratory Medicine 12/31/22 [facility] Laboratory Medicine 08/06/23 Dr. Jesus Jeffries MD External Primary Care Physician 12/21/22 documented as of this encounter
--- OUTSIDE RECORDS SUMMARY | 2023-11-11 21:03 | XMS_ITS | Referral Summary ---
Author Organization [facility] Address [address] [place] [id number] Care Team Providers Care Paid Search Marketing Strategist Name Role Phone Elsewhere, Pcp Primary Care Provider Unavailabl e Source Comments Patient records contain information from all sites at [facility]. For routine questions regarding patient records, call [phone] during business hours, M-F 8:00 AM - 5:00 PM Central Time. Record requests for emergency care only can be directed to [phone] at any time.[facility] Encounters Date Type Department Care Team Description 10/28/2023 Ancillary Procedure Department of Ophthalmology 10/28/2023 4:15 PM CDT Office Visit Department of Ophthalmology in [address] [address] Jason Ann M.D. Central Serous Chorioretinopathy Bilateral (Primary Dx); Cystoid Macular Degeneration Left Eye; Diplopia 10/28/2023 4:00 PM CDT Ancillary Procedure Department of Ophthalmology in [address] [address] Jason Ann M.D. Central Serous Chorioretinopathy Bilateral 10/25/2023 2:30 PM CDT Clinical Communication Virtual Review in [place], [place] [address] [place] [address] Pre-visit Intake 09/17/2023 Clinical Communication Department of Dermatology in [address] [address] Prescheduling , Provider Appt Request (DERM) 09/17/2023 1:00 PM CDT Comprehensive Visit Department of Orthopedic Surgery in [address] [address] Addy Hodge MPAS, Connie.Rashaun., M.S. Tendinitis Achilles Right (Primary Dx); Pain Foot Right; Neuroma Gutierres's Right 09/12/2023 1:30 PM CDT Clinical Communication Virtual Review in [place], [place] 200 [place] [address] Pre-visit Intake 08/26/2023 Refill [facility] in [place], [place] [address] [place] [phone] Breonna Cabrera R.N., C.C.T.C. Med Refill 08/21/2023 Orders Only [facility], [place], operated by [facility] in [place], [place] [address] [place] [phone] External, Ordering Provider, M.Nicolas 08/21/2023 Orders Only [facility], [place], operated by [facility] in [place], [place] [address] [place] [phone] External, Ordering Provider, M.DRuben 08/21/2023 Orders Only [facility], [place], operated by [facility] in [place], [place] [address] [place] [phone] External, Ordering Provider, M.DRuben 08/14/2023 Orders Only Division of Rheumatology in [address] [phone] Sarika Kwong am, M.D., Ph.D. Pain Foot Right (Primary Dx); Neuroma Gutierres's Right 08/13/2023 5:18 PM CDT - 08/13/2023 11:59 PM CDT Hospital Encounter Department of Radiology, [facility], in [place], [place] [address] [place] [phone] Sarika Kwong am, M.D., Ph.D. Pain Foot Right Discharge Disposition: Home or Self Care from Last 3 Months Allergies Active Allergy Reactions Criticality Noted Date Comments Jeffry Inhibitors Cough High 12/08/2013 Amoxicillin Rash High 12/27/2011 Cefprozil Rash Medium 05/11/2013 Cephalosporins Other (see comments),Rash High 05/11/2013 Per allergy testing in [place] Per allergy testing in [place] House Dust Mite Cough Medium 12/27/2011 Levofloxacin Itching,Rash,Hives only, no other systemic symptoms Low 04/03/2019 Niacin Rash Medium 11/15/2021 Prednisone Other (see comments),Rash 04/10/2019 Caused damage to retina/eye, was on long-term Medications Medication Sig Dispensed Refills Start Date End Date Status multivitamin tablet Take 1 tablet by mouth daily. Active sildenafil (VIAGRA) 50 mg tablet Take 1 tablet (50 mg total) by mouth daily as needed for erectile dysfunction. 10 tablet 11 09/17/2017 Active nitroglycerin (NITROSTAT) 0.[address] ONE TABLET UNDER THE TONGUE EVERY 10 MINUTES NEEDED FOR CHEST PAIN. 25 tablet 11 03/24/2018 Active acetaminophen (Tylenol Extra Strength) 500 mg tablet Take 1-2 tablets (500-1,000 mg total) by mouth every 6 (six) hours as needed for pain. 02/13/2019 Active fluticasone propionate (FLONASE) 50 mcg/actuation nasal spray Administer 1 spray into each nostril as needed for allergies. 02/13/2019 Active Colcrys 0.6 mg tablet Take 1 tablet at onset of gout, then 1 tablet 2 hours later PRN only 10 tablet 1 10/07/2019 Active magnesium oxide (MAG-OX) 400 mg (241.3 mg magnesium) tablet Take 800 mg by mouth daily. Active allopurinoL (ZYLOPRIM) 100 mg tablet Take 100 mg by mouth 2 (two) times a day. 05/27/2020 Active calcium carbonate-vitami n D3 1,500 mg (600 mg calcium)-10 mcg (400 Unit) per tablet Take 1 tablet by mouth daily with breakfast. 12/17/2019 Active ferrous sulfate 325 mg (65 mg iron) tablet Take 1 tablet (65 mg of iron total) by mouth every other day. 06/23/2021 Active Additional Information Patient taking differently:325 mg oral3 times weekly, Takes on Saturday, Saturday, and Saturday., Reported on 07/18/2022 rOPINIRole (REQUIP) 0.5 mg tablet Take 3 tablets (1.5 mg total) by mouth daily. 06/23/2021 Active Additional Information Patient taking differently: 3 tabletoral Daily, Reported on 10/25/2023 famotidine (PEPCID) 20 mg tablet Take 20 mg by mouth as needed for indigestion or heartburn. 08/24/2021 Active metoprolol tartrate (LOPRESSOR) 50 mg tablet Take 1 tablet (50 mg total) by mouth 2 (two) times a day. 180 tablet 3 01/31/2022 Active diclofenac sodium (VOLTAREN) 1 % gel APPLY 2 GRAMS TOPICALLY TO AFFECTED AREA FOUR TIMES A DAY. 100 g 3 04/05/2022 Active furosemide (LASIX) 20 mg tabletIndication s:Immunodeficien cy (HCC),Transplant Renal (HCC),High Risk Medication Take 1 tablet (20 mg total) by mouth daily for 5 days. 5 tablet 07/18/20[address] Active [address] tabletIndication s:Immunodeficien cy (HCC),Transplant Renal (HCC),High Risk Medication Take 1 tablet (81 mg total) by mouth daily for 5 days. 120 tablet 07/18/2022 Active amLODIPine (NORVASC) 5 mg tabletIndication s:Immunodeficien cy (HCC),Transplant Renal (HCC),High Risk Medication Take 1 tablet (5 mg total) by mouth daily for 5 days. 5 tablet 07/18/2022 Active sour merlos extract (Tart Merlos Extract) 1,000 mg capsule Take by mouth daily. 04/03/2022 Active Vascepa 1 gram capsule capsule Take 1 capsule by mouth 2 (two) times a day with meals. Active tacrolimus (PROGRAF) 1 mg capsuleIndicatio ns:Transplant Renal (HCC),High Risk Medication,Immun odeficiency (HCC) Take 1 capsule (1 mg total) by mouth 2 (two) times a day. 180 capsule 3 07/16/2023 Active rosuvastatin (CRESTOR) 20 mg tabletIndication s:Transplant Renal (HCC),High Risk Medication,Immun odeficiency (HCC) Take 1 tablet (20 mg total) by mouth daily for 5 days. 5 tablet 07/16/2023 Active ketoconazole (NIZORAL) 2 % cream Apply 1 Application topically 2 (two) times a day. Apply to the affected area twice daily for up to two weeks, thereafter may use as needed three times weekly. 30 g 2 07/16/2023 Active Additional Information Patient taking differently:1 Application topicalAs needed, Apply to the affected area twice daily for up to two weeks, thereafter may use as needed three times weekly., Reported on 10/25/2023 ketoconazole (NIZORAL) 2 % shampoo Apply 1 Application topically 2 (two) times a week. Apply to damp skin, lather, leave on 3-5 minutes, and then rinse. May use initially with every shower, then 1-2 times a week for maintenance. 120 mL 2 07/18/2023 Active Additional Information Patient taking differently:1 Application topicalAs needed, irritation, dandruff, Apply to damp skin, lather, leave on 3-5 minutes, and then rinse. May use initially with every shower, then 1-2 times a week for maintenance., Reported on 10/25/2023 mycophenolate (CELLCEPT) 250 mg capsuleIndicatio ns:Transplant Renal (HCC),High Risk Medication,Immun odeficiency (HCC) Take 2 capsules (500 mg total) by mouth 2 (two) times a day. Do not break, cut, or open capsules. 120 capsule 11 08/26/2023 Active artificial tears, hypromellose, 0.3 % ophthalmic gel Apply 1 drop to both eyes daily. Active artificial tears, hypromellose, 0.3 % ophthalmic gel Apply 1 drop to both eyes 3 (three) times a day as needed. Active calcipotriene 0.005 %, 5-FU 5 % - lipoderm Apply topically 2 (two) times a day to dorsal hands and forearms for 5-7 days. 30 g 2 07/16/2023 4 Discontinue d(Therapy completed) Hospital, Clinic, or Other Facility Administered Medication Ordered Dose Route Frequency Start Date End Date Status sodium chloride 0.9 % injection 3 mL 3 mL IV As needed 07/31/2022 Active sodium chloride 0.9 % injection 3 mL 3 mL IV As needed 10/28/2023 Active fluorescein 100 mg/mL (10 %) injection 250 mg 250 mg IV Once in imaging 10/28/2023 Active Active Problems Problem Noted Date Diagnosed Date Pericarditis Acute 10/07/2019 Bradycardia 10/06/2019 Other Chest Pain 10/04/2019 Fever Of Unknown Origin 10/04/2019 Bradycardia Sinus 04/05/2019 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 amiodorone x 1 month then DC. Gastroesophageal Reflux Disease 02/13/2019 Coronary Artery Disease With Stable Angina 01/19 Overview (01/19/2019): Added automatically from request for surgery [id number] Assessment & Plan (02/13/2019 9:16 AM CDT): PCI/stent LAD 1996. 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 Hyperlipidemia 01/08/2006 Vertigo Benign Positional Bilateral Resolved Problems Problem Noted Date Diagnosed Date Resolved Date Bursitis Elbow Left 04/05/2019 04/20/20 19 Cellulitis Arm Left 04/04/2019 04/20/20 19 Failure Renal Acute (Acute Kidney Injury) 02/19/2019 02/24/2019 Postprocedural Acute Chronic Kidney Failure 02/19/2019 02/24/2019 Anemia Posthemorrhagic Acute (Blood Loss Anemia) 02/17/2019 02/24/2019 Pain Postoperative 02/17/2019 9 Atherosclerotic Heart Diseas e [place] Coronary Artery With Other Forms Angina Pectoris (Angina Equivalent) 01/06/2019 03/06/2019 Overview (01/06/2019): Added automatically from request for surgery [id number] Presyncope 09/20/2017 09/20/2017 Pain Chest 09/19/2017 09/20/2017 Atherosclerotic Heart Diseas e Of [place] Coronary Artery Without Angina Pectoris 01/26/2009 03/06/2019 Overview (08/22/2018): ASHD - Atherosclerotic heart disease Hypertension And Chronic Kid angela Disease Stage 2 01/26/2009 01/06/2019 Immunizations Name Administration Dates Next Due DT, Pediatric 08/20/2002 H1N1 Inj 05/11/2009 HZV (ZOSTAVAX) 03/26/2013 HepA Adult 06/29/2015,03/26/2013 HepB Adult 04/23/2013 HepB Dialysis 06/29/2015,03/26/2013 HepB, Unspecified 04/23/2013 Influenza (IM) Preservative Free 12/21/2009 Influenza Split 01/20/2015, 3,01/21/2012,2010,12/21/2009 Influenza TIV (IM) 02/11/2004 Influenza high dose QV(65 ye ars or older) (PF) 01/22/2023 Influenza, Injectable, Quadrivalent 02/14/2018,1 Influenza, Quadrivalent, Adj uvanted, Preservative Free 01/27/2021 Influenza, Seasonal, Injectable 01/12/2012,01/26 Influenza, Unspecified 01/18/2017,2015,02/03/2014,2011,02/20/2011,01/20/2011,02/23/2010,1 ,03/06/2007 MMR 09/18/1996 PCV13 06/29/2015 PCV7 (discontinued) 04/25/1998 PPSV23 03/23/2021, 3,04/22/2009,1998 RZV (SHINGRIX) 08/22/2018,03/28/2018 Td (Adult), adsorbed 10/05/2011,04/22/19 06,08/20/2002,1990 Td, (Adult) Unspecified 04/22/2005 Tdap 05/16/2023,02/05/2013,04/22/2005 influenza high dose (65 year s or older) (PF) 01/30/2019 influenza vaccine QV(FLUBLOK ) (18 years or older) (PF) 02/01/2022 influenza vaccine quad (FLUZONE/FLUARIX) (6 months and older)(PF) 02/09/2020,01/18/2017,02/03/2016 Social History Tobacco Use Types Packs/Day Years Used Date Smoking Tobacco: Never Passive Smoke Exposure: Past Smokeless Tobacco: Never Tobacco Cessation:Counseling Given: Yes Passive Exposure Comments:From age 1 - 20 Alcohol Use Standard Drinks/Week Comments Not Currently 0 (1 standard drink = 0.6 oz pur e alcohol) None since 2016 [facility] P2i Answer Date Recorded In the past 12 months has e [employer], gas, oil, or water [employer] threatened to shut off services in your [...] often do you attend chur ch or mosque services? More than 4 times per year 07/12/2022 Do you belong to any clubs o r organizations such as presybeterian groups, unions, fraternal or athletic groups, or [...] Answer Date Recorded PHQ-2 Score 1 05/04/2019 [facility] - Occupational Stress [...] your living situation today? [facility] live 09/12/2023 Education Answer Date Recorded What is the highest level of school you have completed or the highest degree you have received? Bachelor's degree (e.g., BA, AB, BS) 01/11/2019 Sex and Gender Information Value Date Recorded Sex Assigned at Male 05/07/2017 7:50 PM SIGN HANGER SUPERVISOR Gender Identity Male 05/07/2017 7:50 PM SIGN HANGER SUPERVISOR Sexual Orientation Straight 05/07/2017 7: 50 PM SIGN HANGER SUPERVISOR Last Filed Vital Signs Vital Sign Reading Time Taken Comments Blood Pressure 148/70 07/15/2023 3:15 PM CDT Pulse 62 07/15/2023 3:15 PM CDT Temperature 36.8 ??C (98.2 ??F) 07/15/2023 1:37 PM CD T Respiratory Rate 16 01/17/2022 1:03 PM CDT Oxygen Saturation 98% 07/15/2023 1:37 PM CDT Inhaled Oxygen Concentration - - Weight 88.3 kg (194 lb 10.7 oz) 07/16/2023 7:00 AM CDT Height 174.2 cm (5' 8.58) 07/16/2023 7:00 AM CD T Body Mass Index 29.1 07/16/2023 7:00 AM CDT Plan of Treatment Upcoming Encounters Date Type Department Care Team (Late st Contact Info) Description 11/19/2023 2:00 PM CDT Procedure visit Department of Dermatology in [place], [place] [address] [place] [phone] Caleb Vasquez M.D. [address] [place] [phone] 12/06/2023 7:30 AM CDT Ancillary Procedure Department of Ophthalmology in [place], [place] [address] [place] [phone] Jason Ann M.D. [address] [place] [phone] 12/06/2023 8:00 AM CDT Ancillary Procedure Department of Ophthalmology in [place], [place] [address] [place] [phone] Jason Ann M.D. [address] [place] [phone] 12/06/2023 8:45 AM CDT Procedure visit Department of Ophthalmology in [place], [place] [address] [place] [phone] Jason Ann M.D. [address] [place] [phone] 12/06/2023 9:00 AM CDT Ancillary Procedure Department of Ophthalmology in [place], [place] [address] [place] [phone] Jason Ann M.D. [address] [place] [phone] 12/06/2023 9:30 AM CDT Office Visit Department of Ophthalmology in [place], [place] [address] [place] [phone] Jason Ann M.D. [address] [place] [phone] Medical Devices Implanted Type Area Extension Supervisor Device Identifier Shelf Expiration Date Model / Serial / Lot Conversions - Default Historical Implant Device Implanted:06/27 (Quantity not on file) Cardiac Stent Chest Description:Body Location - Chest. Device Status Text - Cardiac. Clp Hrzn Ti 6 Clp Sm Red - [id number] Implanted:Qty: 1 on 02/16/2019 at [facility] Hardware e.g. pins/screws /rods N/A: [employer] [id number] / / Clp Hrzn Ti 6 Clp Sm Red - [id number] Implanted:Qty: 1 on 02/16/2019 at [facility] Hardware e.g. pins/screws /rods N/A: [employer] [id number] / / Clp Hrzn Ti 6 Clp Sm Red - [id number] Implanted:Qty: 1 on 02/16/2019 at [facility] Hardware e.g. pins/screws /rods N/A: [employer] [id number] / / Clp Hrzn Ti 6 Clp Md Edilson - [id number] Implanted:Qty: 1 on 02/16/2019 at [facility] Hardware e.g. pins/screws /rods N/A: [employer] [id number] 10/22/2023 [id number] / / [id number] Clp Hrzn Ti 6 Clp Md Edilson - [id number] Implanted:Qty: 2 on 02/16/[address] M[address] at [facility] Hardware e.g. pins/screws /rods N/A: [employer] [id number] / / Stent Uret Dbl. J 6 X 16 - Haddad [id number] Implanted:Qty: 1 on 05/12/2013 Ureteral Stent Other/Legacy - See Implant Description Description:Device Manufactu rer - [employer]. Device Status Text - [id number]-[id number]. Stent Herculink .[id number] - Haddad [id number] Implanted:Qty: 1 on 07/05/2010 Vascular Stent Guidant Description:Device Manufactu rer - Guidant Jennifer.. Device Status Text - [id number]. Procedures Procedure Name Priority Date/Time Associated Diagnosis Comments OPTICAL COHERENCE TOMOGRAPHY - MACULA/RETINA - OU - BOTH EYES Routine 10/28/2023 3:40 PM CDT Central Serous Chorioretinopathy Bilateral OPHTHALMOLOGY IMAGE EXAM Routine 10/28/2023 12:00 AM CDT EXTM TACROLIMUS LEVEL, B Routine 08/21/2023 8:00 AM CDT EXTM TACROLIMUS LEVEL, B Routine 08/21/2023 8:00 AM CDT EXTM ALBUMIN, RANDOM, U Routine 08/21/2023 8:00 AM CDT EXTP COMPLETE BLOOD COUNT, BLOOD Routine 08/21/2023 8:00 AM CDT EXTP BASIC METABOLIC PANEL, BLOOD Routine 08/21/2023 8:00 AM CDT MR FOOT RIGHT WITHOUT AND WITH IV CONTRAST RAD - Routine (most inpatients and all outpatients) 08/13/2023 6:27 PM CDT Pain Foot Right LIPID PANEL, S Routine 07/15/2023 6:18 AM CDT Transplant Renal (HCC) from Last 3 Months or Most Recently Relevant to Health Maintenance Results * Optical Coherence Tomography - Macula/Retina - OU - Both Eyes (10/28/2023 3:40 PM CDT) Narrative OPHTHALMOLOGY IMAGING EXAM - 10/28/2023 4:07 PM CDT Right Eye OCT device used was Spectralis . Left Eye OCT device used was Spectralis . Notes Cme with micros, LEFT eye; pachychoroid, both eyes. ??Trace retinal pigment epithelium detachment, LEFT Jason Ann M.D. OPHTH TOMOGRAPHY OPHTHALMOLOGY IMAGING EXAM * Eye Spectralis OCT-Ophthalmology Image Exam (10/28/2023 12:00 AM CDT) Narrative IIMS - 10/28/2023 3:42 PM CDT This order has been created and auto-finalized to support the import of images acquired without order. The clinical documentation to support these images can be found on the encounter that produced images. Provider Not In System IMG NON RAD IMAGI NG PROCEDURES Performing Organization Address [facility]/ZIP Co de Phone Number [facility] NA * EXT Tacrolimus, B (08/21/2023 8:00 AM CDT) Only the most recent of2 resultswithin the time period is included. Pathologist [facility] EXT Tacrolimus 7.8 ng/mL SCANNED REPORT 08/21/2023 8:00 AM CDT Narrative SCANNED REPORT - 08/26/2023 12:34 PM CDT External results verified in Extract by Aliya Grant on 08/26/2023 at 12:33 PM. Ordering Provider External M.D. LAB BLOO D NON ADD-ON Performing Organization Address [facility] de Phone Number SCANNED REPORT * (ABNORMAL) EXT Albumin, Random, Urine (08/21/2023 8:00 AM CDT) Pathologist [facility] EXT Creatinine, Urine 38.8 mg/dL SCANNED REPORT EXT Microalbumin-R andom, U 4 mg/dL SCANNED REPORT EXT Albumin/Creati nine Ratio 100(H) 0 - 30 MG/G SCANNED REPORT 08/21/2023 8:00 AM CDT Narrative SCANNED REPORT - 08/23/2023 8:05 AM CDT Source result document attached to Order Number [id number] ([id number]) dated 08/21/2023. External results verified in Extract by Juliana Lamb on 08/23/2023 at 07:59 AM. Ordering Provider External M.D. LAB URIN E ORDERABLES Performing Organization Address [facility] Co de Phone Number SCANNED REPORT * EXT Basic Metabolic Panel, Blood (08/21/2023 8:00 AM CDT) Pathologist [facility] EXT Sodium 141 135 - 149 mmol/L SCANNED REPORT EXT Potassium 4.3 3.6 - 5.1 mmol/L SCANNED REPORT EXT Chloride 105 96 - 114 mmol/L SCANNED REPORT EXT CO2 30 20 - 32 mmol/L SCANNED REPORT EXT BUN (Blood Urea Nitrogen) 19 7 - 30 mg/dL SCANNED REPORT EXT Creatinine 1.0 0.5 - 1.5 mg/dL SCANNED REPORT EXT Estimated GFR (eGFR) 82 ml/min SCANNED REPORT EXT Calcium, Total 9.5 8.4 - 10.6 mg/dL SCANNED REPORT EXT Glucose 87 60 - 115 mg/dL SCANNED REPORT 08/21/2023 8:00 AM CDT Narrative SCANNED REPORT - 08/23/2023 8:05 AM CDT External results verified in Extract by Juliana Lamb on 08/23/2023 at 07:59 AM. Ordering Provider External M.DRuben LAB BLOO D NON ADD-ON SCANNED REPORT * EXT Complete Blood Count, Blood (08/21/2023 8:00 AM CDT) [facility] EXT Leukocytes 6.76 4.50 - 11.00 K/uL SCANNED REPORT EXT RBC 5.18 4.30 - 5.90 m/uL SCANNED REPORT EXT Hemoglobin 15.7 13.5 - 17.5 gm/dL SCANNED REPORT EXT Hematocrit 45.4 37.0 - 53.0 % SCANNED REPORT EXT MCV 88 80 - 100 fL SCANNED REPORT EXT Platelet Count 200 140 - 440 K/uL SCANNED REPORT EXT Neutrophils 3.87 1.7 - 7.0 K/uL SCANNED REPORT EXT Lymphocytes 1.88 0.90 - 2.90 K/uL SCANNED REPORT EXT Monocytes 0.80 0.00 - 0.90 K/UL SCANNED REPORT EXT Eosinophils 0.21 0.00 - 0.50 K/uL SCANNED REPORT EXT Basophils 0.03 0.00 - 0.30 K/uL SCANNED REPORT EXT RDW 11.9 11.5 - 15.5 % SCANNED REPORT 08/21/2023 8:00 AM CDT Narrative SCANNED REPORT - 08/23/2023 8:05 AM CDT Source result document attached to Order Number [id number] ([id number]) dated 08/21/2023. External results verified in Extract by Juliana Lamb on 08/23/2023 at 07:59 AM. Ordering Provider External Edis Smith NON ADD-ON SCANNED REPORT * MR Foot Right without and with IV Contrast (08/13/2023 6:27 PM CDT) Anatomical Region Laterality Modality Lower Extremity, Foot, Muscu loskeletal RST LOS, Musculoskeletal ARZ LOS, Muskuloskeletal FLA LOS Right Magne tic Resonance Impressions 08/13/2023 8:15 PM CDT Nonspecific enhancing synovitis of the ankle and subtalar joint along with the posterior ankle recess and communicating flexor hallucis longus. Less prominent enhancing tenosynovitis of the posterior tibialis, flexor digitorum longus, and peroneus longus and brevis. No significant enhancing synovitis or tenosynovitis within the mid or forefoot. No erosions. Os trigonum with marked degenerative changes at the interface with the posterior talus. There is prominent tendinopathy of the adjacent flexor pollicis longus tendon with a possible split tear at this location. Enhancing nodule in the third web space which appears to be contiguous with the digital nerves and is suspicious for a Gutierres's neuroma. This is seen on series 11, image 20 and measures 4 mm in diameter. Prominent soft tissue edema about the ankle. Markedly irregular bipartite medial sesamoid versus chronic ununited fracture. Normal variant accessory peroneus quartus. ?? Narrative 08/13/2023 8:15 PM CDT EXAM: ??MR FOOT RIGHT WITHOUT AND WITH IV CONTRAST COMPARISON: ??Radiographs dated 06/19/2023 and 09/13/2017 Procedure Note Marty Oneill M.D. - 08/13/2023 EXAM: MR FOOT RIGHT WITHOUT AND WITH IV CONTRAST COMPARISON: Radiographs dated 06/19/2023 and 09/13/2017 IMPRESSION: Nonspecific enhancing synovitis of the ankle and subtalar joint along withthe posterior ankle recess and communicating flexor hallucis longus. Lessprominent enhancing tenosynovitis of the posterior tibialis, flexordigitorum longus, and peroneus longus and brevis. No significant enhancing synovitis ortenosynovitis within the mid or forefoot. No erosions. Os trigonum with marked degenerative changes at the interface with theposterior talus. There is prominent tendinopathy of the adjacent flexorpollicis longus tendon with a possible split tear at this location. Enhancing nodule in the third web space which appears to be contiguouswith the digital nerves and is suspicious for a Gutierres's neuroma. This isseen on series 11, image 20 and measures 4 mm in diameter. Prominent soft tissue edema about the ankle. Markedly irregular bipartitemedial sesamoid versus chronic ununited fracture. Normal variant accessoryperoneus quartus. Sarika Velazquez M.D., Ph.D. IMG MRI PROCEDURES * (ABNORMAL) Lipid Panel (07/15/2023 6:18 AM CDT) Triglycerides 208(H) mg/dL 07/15/2023 7:13 AM CDT DTL Comment: ----REFERENCE VALUE---- Normal: <150 mg/dL Borderline High: 150-199 mg/dL High: 200-499 mg/dL Very High: > or =500 mg/dL Cholesterol, Total 126 mg/dL 2023 7:13 AM CDT DTL Comment: ----REFERENCE VALUE---- Desirable: < 200 mg/dL Borderline High: 200 - 239 mg/dL High: > or = 240 mg/dL Cholesterol, LDL, Calculated 48 mg/dL 07/15/2023 7:13 AM CDT DTL Comment: ----REFERENCE VALUE---- Desirable: <100 mg/dL Above Desirable: 100-129 mg/dL Borderline High: 130-159 mg/dL High: 160-189 mg/dL Very High: >=190 mg/dL ----ADDITIONAL INFORMATION---- LDL cholesterol calculated using the Eddy/NIH equation. Cholesterol, HDL, S 45 >=40 mg/dL 07/15/2023 7:13 AM CDT DTL Cholesterol, Non-HDL, Calculated 81 mg/dL 07/15/2023 7:13 AM CDT DTL Comment: ----REFERENCE VALUE---- Desirable: <130 mg/dL Above Desirable: 130-159 mg/dL Borderline High: 160-189 mg/dL High: 190-219 mg/dL Very High: > or =220 mg/dL Fasting (8 HR or more) Yes 07/15/2023 6:29 AM CDT DTL Blood (Blood, Venous) 07/15/2023 6:18 AM CDT 07/15/2023 6:29 AM CDT Annabel Villanueva APRN, C.N.P., M.S.N. LAB BLOOD ADD-ON [facility] [address] [place] [address], [facility] [address] [place] [address] from Last 3 Months or Most Recently Relevant to Health Maintenance Additional Health Concerns Infection Onset Date Last Indicated Protective Environment 07/31/2022 3 Advance Directives For more information, please contact: [phone] Documents on File Type Date Recorded Patient Mechanical Design Technician Expl anation Advance Directives 10/28/2014 12:00 AM Lega cy document. See document viewer. * Full Code (Latest Code Status on File) Date Activated Date Inactivated Comments 10/04/2019 6:44 PM 10/07/2019 3:48 PM Question Answer Comments Full Code: Not Discussed Due to: Patient not available * Full Code Date Activated Date Inactivated Comments 04/04/2019 12:30 AM 04/05/2019 4:06 PM Question Answer Comments Full Code: Discussed * Full Code Date Activated Date Inactivated Comments 02/16/2019 2:29 PM 02/25/2019 2:38 PM Question Answer Comments Full Code: Discussed * Full Code Date Activated Date Inactivated Comments 02/16/2019 6:41 AM 02/16/2019 2:29 PM Question Answer Comments Full Code: Discussed * Full Code Date Activated Date Inactivated Comments 01/08/2019 12:01 PM 01/08/2019 4:30 PM Question Answer Comments Full Code: Discussed Care Teams Paid Search Marketing Strategist Relationship Specialty Start Date End Date Elsewhere, Pcp PCP - General Family Medicine 06/20/19 Dr Miguel A Jeffries [address] [place] [phone] Laboratory Medicine 12/31/[address] [facility] Laboratory Medicine 08/06/23 Dr. Jesus Jefrfies MD External Primary Care Physician 12/21/22
--- OUTSIDE RECORDS SUMMARY | 2023-11-11 21:03 | XMS_ITS | Encounter Summary ---
Author Organization [facility] Address [address] [place] [address] Care Team Providers Care Communications Engineer Name Role Phone Elsewhere, Pcp Primary Care Provider Unavailabl e Encounter Details Date Type Department Care Team (Latest Contact Info) Description 10/28/2023 4:00 PM CDT Ancillary Procedure Department of Ophthalmology in [place], [place] [address] [place] [address] Jason Ann M.D. [address] [place] [address] Central Serous Chorioretinopathy Bilateral Social History Tobacco Use Types Packs/Day Years Used Date Smoking Tobacco: Never Passive Smoke Exposure: Past Smokeless Tobacco: Never Passive Exposure Comments:F rom age 1 - 20 Alcohol Use Standard Drinks/Week Comments Not Currently 0 (1 standard drink = 0.6 oz pur e alcohol) None since 2017 [facility] Utilities Answer Date Recorded In the past [address] [facility], gas, oil, or water [employer] threatened to shut off services in your [...] 07/12/2022 How often do you attend chur or jew services? More than 4 times per year 07/12/2022 Do you belong to any clubs o r organizations such as uatsdin groups, unions, fraternal or athletic groups, or [...] Answer Date Recorded PHQ-2 Score 1 05/04/2019 [facility] Occup[facility] ional [facility] - Occupational [...] your living situation today? I have a [facility] place to live 09/12/2023 Education Answer Date Recorded What is the highest level of school you have completed or the highest degree you have received? Bachelor's degree (e.g., BA, AB, BS) 01/11/2019 Sex and Gender Information Value Date Recorded Sex Assigned at Male 05/07/2017 7:50 PM MALE IMPERSONATOR Gender Identity Male 05/07/2017 7:50 PM MALE IMPERSONATOR Sexual Orientation Straight 05/07/2017 7: 50 PM MALE IMPERSONATOR documented as of this encounter Plan of Treatment Upcoming Encounters Date Type Department Care Team (Late st Contact Info) Description 11/19/2023 2:00 PM CDT Procedure visit Department of Dermatology in [place], [place] [address] [place] [phone] Caleb Vasquez M.D. [address] [place] [phone] 12/06/2023 7:30 AM CDT Ancillary Procedure Department of Ophthalmology in [place], [place] [address] [place] [phone] Jason Ann M.D. [address] [place] [phone] 12/06/2023 8:00 AM CDT Ancillary Procedure Department of Ophthalmology in [place], [place] [address] [place] [phone] Jason Ann M.D. [address] [place] [phone] 12/06/2023 8:45 AM CDT Procedure visit Department of Ophthalmology in [place], [place] [address] [place] [phone] Jason Ann M.D. [address] [place] [phone] 12/06/2023 9:00 AM CDT Ancillary Procedure Department of Ophthalmology in [place], [place] [address] [place] [phone] Jason Ann M.D. [address] [place] [phone] 12/06/2023 9:30 AM CDT Office Visit Department of Ophthalmology in [place], [place] [address] [place] [phone] Jason Ann M.D. [address] [place] [phone] documented as of this encounter Procedures Procedure Name Priority Date/Time Associated Diagnosis Comments OPTICAL COHERENCE TOMOGRAPHY - MACULA/RETINA - OU - BOTH EYES Routine 10/28/2023 3:40 PM CDT Central Serous Chorioretinopathy Bilateral documented in this encounter Results * Optical Coherence Tomography - Macula/Retina - OU - Both Eyes (10/28/2023 3:40 PM CDT) [facility] OPHTHALMOLOGY IMAGING EXAM - 10/28/2023 4:07 PM CDT Right Eye OCT device used was Spectralis . Left Eye OCT device used was Spectralis . Notes Cme with micros, LEFT eye; pachychoroid, both eyes. ??Trace retinal pigment epithelium detachment, LEFT Jason Ann M.D. OPHTH TOMOGRAPHY OPHTHALMOLOGY IMAGING EXAM documented in this encounter Visit Diagnoses Diagnosis Central Serous Chorioretinopathy Bilateral documented in this encounter Additional Health Concerns Infection Onset Date Last Indicated Resolved Time Protective Environment 07/31/2022 07/31/2022 Assessment Noted Time PHQ-9 Depression Total Score: 2 05/04/19 20 7:49 PM MALE IMPERSONATOR documented as of this encounter Care Teams Communications Engineer Relationship Specialty Start Date End Date Elsewhere, Pcp PCP - General Family Medicine 06/20/19 Dr Miguel A Jeffries [address] [place] [address] Laboratory Medicine 12/31/22 [facility] Laboratory Medicine 08/06/23 Dr. Jesus Jeffries MD External Primary Care Physician 12/21/22 documented as of this encounter
--- OUTSIDE RECORDS SUMMARY | 2023-11-11 21:03 | XMS_ITS | Encounter Summary ---
Author Organization [facility] Address [address] [place] [address] Care Team Providers Care Centrifugal Casting Machine Tender Name Role Phone Elsewhere, Pcp Primary Care Provider Unavailabl e Reason for Visit * Reason Onset Date Comments Pre-visit Intake 10/25/2023 Encounter Details Date Type Department Care Team (Latest Contact Info) Description 10/25/2023 2:30 PM CDT Clinical Communication Virtual Review in [place], [place] [address] [place] [address] Pre-visit Intake Social History Tobacco Use Types Packs/Day Years Used Date Smoking Tobacco: Never Passive Smoke Exposure: Past Smokeless Tobacco: Never Tobacco Cessation:Counseling Given: Yes Passive Exposure Comments:From age 1 - 20 Alcohol Use Standard Drinks/Week Comments Not Currently 0 (1 standard drink = 0.6 oz pur e alcohol) None since [facility] Utilities Answer Date Recorded In the past 12 months has e [employer], gas, oil, or water [employer] threatened to shut off services in your [...] often do you attend chur ch or restoration services? More than 4 times per year 07/12/2022 Do you belong to any clubs o r organizations such as taoist groups, unions, fraternal or athletic groups, or [...] Answer Date Recorded PHQ-2 Score 1 05/04/2019 [facility] - Occupational Stress Questionnaire Answer Date Recorded [...] your living situation today? I have a [facility] place to live 09/12/2023 Education Answer Date Recorded What is the highest level of school you have completed or the highest degree you have received? Bachelor's degree (e.g., BA, AB, BS) 01/11/2019 Sex and Gender Information Value Date Recorded Sex Assigned at Male 05/07/2017 7:50 PM HUNTER GUIDE Gender Identity Male 05/07/2017 7:50 PM HUNTER GUIDE Sexual Orientation Straight 05/07/2017 7: 50 PM HUNTER GUIDE documented as of this encounter Plan of Treatment Upcoming Encounters Date Type Department Care Team (Late st Contact Info) Description 11/19/2023 2:00 PM CDT Procedure visit Department of Dermatology in [place], [place] [address] [place] [phone] Caleb Vasquez M.D. [address] [place] [phone] 12/06/2023 7:30 AM CDT Ancillary Procedure Department of Ophthalmology in [place], [place] [address] [place] [phone] Jason Ann M.D. [address] [place] [phone] 12/06/2023 8:00 AM CDT Ancillary Procedure Department of Ophthalmology in [place], [place] [address] [place] [phone] Jason Ann M.D. [address] [place] [phone] 12/06/2023 8:45 AM CDT Procedure visit Department of Ophthalmology in [place], [place] [address] [place] [phone] Jason Ann M.D. [address] [place] [phone] 12/06/2023 9:00 AM CDT Ancillary Procedure Department of Ophthalmology in [place], [place] [address] [place] [phone] Jason Ann M.D. [address] [place] [phone] 12/06/2023 9:30 AM CDT Office Visit Department of Ophthalmology in [place], [place] [address] [place] [phone] Jason Ann M.D. [address] [place] [phone] documented as of this encounter Visit Diagnoses Not on filedocumented in this encounter Additional Health Concerns Infection Onset Date Last Indicated Resolved Time Protective Environment 07/31/2022 07/31/2022 Assessment Noted Time PHQ-9 Depression Total Score: 2 05/04/19 20 7:49 PM HUNTER GUIDE documented as of this encounter Care Teams Centrifugal Casting Machine Tender Relationship Specialty Start Date End Date Elsewhere, Pcp PCP - General Family Medicine 06/20/19 Dr Miguel A Jeffries [address] [place] [address] Laboratory Medicine 12/31/22 [facility] [place] Laboratory Medicine 08/06/23 Dr. Jesus Jeffries MD External Primary Care Physician 12/21/22 documented as of this encounter
--- OUTSIDE RECORDS SUMMARY | 2023-11-11 21:03 | XMS_ITS | Clinical Summary ---
Author Organization [facility] Address [address] [place] [phone] Care Team Providers Care Restaurant Recruiter Name Role Phone Elsewhere, Pcp Primary Care Provider Unavailabl e Source Comments Patient records contain information from all sites at [facility]. For routine questions regarding patient records, call [phone] during business hours, M-F 8:00 AM - 5:00 PM Central Time. 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 amiodorone x 1 month then DC. Gastroesophageal Reflux Disease 02/13/2019 Coronary Artery Disease With Stable Angina 01/19 Overview (01/19/2019): Added automatically from request for surgery [id number] Assessment & Plan (02/13/2019 9:16 AM CDT): PCI/stent LAD 1996. 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 Coronary Artery With Other Forms Angina Pectoris (Angina Equivalent) 01/06/2019 03/06/2019 Overview (01/06/2019): Added automatically from request for surgery [id number] Presyncope 09/20/2017 09/20/2017 Pain Chest 09/19/2017 09/20/2017 Atherosclerotic Heart Diseas e Of 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 Central Serous Chorioretinopathy Bilateral (Primary Dx); Cystoid Macular Degeneration Left Eye; Diplopia 10/28/2023 4:00 PM CDT Ancillary Procedure Department of Ophthalmology in [place], [place] [address] [place] [phone] Jason Ann M.D. Central Serous Chorioretinopathy Bilateral 10/28/2023 Ancillary Procedure Department of Ophthalmology 10/25/2023 2:30 PM CDT Clinical Communication Virtual Review in [address] [phone] Pre-visit Intake 09/17/2023 1:00 PM CDT Comprehensive Visit Department of Orthopedic Surgery in [address] [address] Addy Hodge, MINNIE, P.A.-C., M.S. Tendinitis Achilles Right (Primary Dx); Pain Foot Right; Neuroma Gutierres's Right 09/17/2023 Clinical Communication Department of Dermatology in [address] [phone] Prescheduling , Provider Appt Request (DERM) 09/12/2023 1:30 PM CDT Clinical Communication Virtual Review in [address] [phone] Pre-visit Intake 08/26/2023 [facility] [place], [place] [address] [place] [phone] Breonna Cabrera R.N., C.C.T.C. Med Refill 08/21/2023 Orders Only [facility] [place], [place] [address] [place] [phone] External, Ordering Provider, Edis 08/21/2023 Orders Only Josep chandra [facility] in [place], [place] [address] [place] [address] External, Ordering Provider, Edis 08/21/2023 Orders Only [facility] [place], [place] [address] [place] [address] External, Ordering Provider, Edis 08/14/2023 Orders Only Division of Rheumatology in [place], [place] [address] [place] [address] Sarika Kwong am, M.D., Ph.D. Pain Foot Right (Primary Dx); Neuroma Gutierres's Right 08/13/2023 5:18 PM CDT - 08/13/2023 11:59 PM CDT Hospital Encounter Department of Radiology, [facility], in [place], [place] [address] [place] [address] Sarika Kwong am, M.D., Ph.D. Pain Foot Right Discharge Disposition: Home or Self Care from Last 3 Months Immunizations Name Administration Dates Next Due DT, [...] quad (FLUZONE/FLUARIX) (6 months and older)(PF) 02/09/2020,01/18/2017,02/03/2016 Family History Medical History Relation Name Comments Coronary artery disease Brother 1 Edward Heart attack Brother 1 Edward Coronary artery disease Brother 2 Yan Heart attack Brother 2 Yan Coronary artery disease Brother 3 Chuck Coronary artery disease Brother 4 Carlos Rheum arthritis Brother 5 Abdulaziz Coronary artery disease Father Edward Heart attack Father Edward Coronary artery disease Paternal Grandfather Edward Heart attack Paternal Grandfather Edward Ovarian cancer Sister 2 Pam Stillbrayan Relation Name Status Comments Brother 1 Edward Brother 2 Yan Brother 3 Chuck Brother 4 Carlos Brother 5 Abdulaziz Father Edward Grandfather Paternal Grandfather Edward Sister 1 Sister 2 Pam Suero Social History Tobacco Use Types Packs/Day Years Used Date Smoking Tobacco: Never Passive Smoke Exposure: Past Smokeless Tobacco: Never Tobacco Cessation:Counseling Given: Yes Passive Exposure Comments:From age 1 - 20 Alcohol Use Standard Drinks/Week Comments Not Currently 0 (1 standard drink = 0.6 oz pur e alcohol) None since 2016 [facility] Utilities Answer Date Recorded In the past 12 months has e electric, gas, oil, or water company threatened to shut off services in your [...] How often do you attend chur or latter day services? More than 4 times per year 07/12/2022 Do you belong to any clubs o r organizations such as cheondoism groups, unions, fraternal or athletic groups, or [...] Answer Date Recorded PHQ-2 Score 1 05/04/2019 [facility] of Occupat ional Health - Occupational Stress [...] money to buy more. Never true 09/12/19 Within the past 12 months, t he [...] your living situation today? I have a [facility] place to live 09/12/2023 Education Answer Date Recorded What is the highest level of school you have completed or the highest degree you have received? Bachelor's degree (e.g., BA, AB, BS) 01/11/2019 Sex and Gender Information Value Date Recorded Sex Assigned at Male 05/07/2017 7:50 PM FLOOR INSPECTOR Gender Identity Male 05/07/2017 7:50 PM FLOOR INSPECTOR Sexual Orientation Straight 05/07/2017 7: 50 PM FLOOR INSPECTOR Last Filed Vital Signs Vital Sign Reading [...] CDT Procedure visit Department of Dermatology in [place], [place] [address] [place] [phone] Caleb Vasquez M.D. [address] [place] [phone] 12/06/2023 7:30 AM CDT Ancillary Procedure Department of Ophthalmology in [place], [place] [address] [place] [phone] Jason Ann M.D. [address] [place] [phone] 12/06/2023 8:00 AM CDT Ancillary Procedure Department of Ophthalmology in [place], [place] [address] [place] [phone] Jason Ann M.D. [address] [place] [phone] 12/06/2023 8:45 AM CDT Procedure visit Department of Ophthalmology in [place], [place] [address] [place] [phone] Jason Ann M.D. [address] [place] [phone] 12/06/2023 9:00 AM CDT Ancillary Procedure Department of Ophthalmology in [place], [place] [address] [place] [address] Jason Ann M.D. [address] [place] [phone] 12/06/2023 9:30 AM CDT Office Visit Department of Ophthalmology in [place], [place] [address] [place] [address] Jason Ann M.D. [address] [place] [phone] Health Maintenance Due Date Last Done Comments CT Colonography 1955 Cologuard 1955 FIT 1955 COVID-19 Vaccine ( season) 2023 01/22/2023, 10/11/2022, 02/01/2022, Additional history exists Depression Screening (Annual PHQ-2) 04/22/2023 Influenza Vaccine (#1) 2024 , 02/01/2022, 01/27/2021, Additional history exists Office Visit for Blood Pressure Check / Re-check 07/14/2024 07/15/2023 Creatinine Level (Kidney Function Test) 08/20/2024 08/21/2023, 08/01/2023, 07/15/2023, Additional history exists Potassium Level 08/20/2024 08/21/2023, 07/21, 07/15/2023, Additional history exists Sodium Level 08/20/2024 08/21/2023, 07/21, 07/15/2023, Additional history exists Fasting Glucose for Diabetes Screening 08/20/2026 08/21/2023, 08/01/2023, 07/15/2023, Additional history exists Lipid (Cholesterol) Screening 07/14/2028 07/15/2023, 07/18/2022, 07/11/2021, Additional history exists Colonoscopy 11/23/2030 11/23/2020, 0705/2011, 01/18/2006 (Performed elsewhere) Colorectal Cancer Screening 11/23/2030 DTaP,Tdap,and Td Vaccines (9 - Td or Tdap) 05/16/2033 05/16/2023, 02/05/2013, 10/05/2011, Additional history exists Hepatitis A Vaccines Completed 06/29/2015, 03/26/20 13 Hepatitis B Vaccines Completed 06/29/2015, 04/23/2013, 04/23/2013, Additional history exists Zoster Vaccines Completed 08/22/2018, 10/2017, 03/26/2013 Pneumococcal vaccine (65+ years) Completed 03/23/2021, 06/29/2015, 02/05/2013, Additional history exists Fall Risk Screen (Annual) Completed 07/15/2023 HPV Vaccines Aged Out No longer eligi ble based on patient's age to complete this topic Medical Devices Implanted Type Area Housekeeper Supervisor Device Identifier Shelf Expiration Date Model / Serial / Lot Conversions - Default Historical Implant Device Implanted:06/27 (Quantity not on file) Cardiac Stent Chest Description:Body Location - Chest. Device Status Text - Cardiac. Clp Hrzn Ti 6 Clp Sm Red - [id number] Implanted:Qty: 1 on 02/16/2019 at [facility] Hardware e.g. pins/screws /rods N/A: [employer] [id number] / / Clp Hrzn Ti 6 Clp Sm Red - [id number] Implanted:Qty: 1 on 02/16/2019 at [facility] Hardware e.g. pins/screws /rods N/A: [employer] [id number] / / Clp Hrzn Ti 6 Clp Sm Red - [id number] Implanted:Qty: 1 on 02/16/2019 at [facility] Hardware e.g. pins/screws /rods N/A: [employer] [id number] / / Clp Hrzn Ti 6 Clp Md Edilson - [id number] Implanted:Qty: 1 on 02/16/2019 at [facility] Hardware e.g. pins/screws /rods N/A: [employer] [id number] 10/22/2023 [id number] / / [id number] Clp Hrzn Ti 6 Clp Md Edilson - [id number] Implanted:Qty: 2 on 02/16/[address] at [facility] Hardware e.g. pins/screws /rods N/A: [employer] [id number] / / Stent Uret Dbl. J 6 X 16 - [id number] [id number] Implanted:Qty: 1 on 05/12/2013 Ureteral Stent Other/Legacy - See Implant Description Description:Device Manufactu rer - [employer]. Device Status Text - [id number]. Stent Herculink .[id number] - Haddad [id number] Implanted:Qty: 1 on 07/05/2010 Vascular Stent Guidant Description:Device Manufactu rer - Guidant Jennifer.. Device Status Text - [id number]. Procedures Procedure Name Priority Date/Time Associated Diagnosis [...] detachment, LEFT Jason Ann M.D. OPHTH TOMOGRAPHY Performing Organization Address [facility] de Phone Number OPHTHALMOLOGY IMAGING EXAM * Eye Spectralis OCT-Ophthalmology [...] RAD IMAGI NG PROCEDURES Performing Organization Address [facility] de Phone Number IIME NA * EXT Tacrolimus, B (08/21/2023 8:00 AM CDT) Only the most recent of2 resultswithin the time period is included. EXT Tacrolimus 7.8 ng/mL SCANNED REPORT 08/21/2023 8:00 AM CDT Narrative SCANNED REPORT - 08/26/2023 12:34 PM CDT External results verified in Extract by Aliya Grant on 08/26/2023 at 12:33 PM. Ordering Provider Lorenza Randhawa LAB BLOO D NON ADD-ON Performing Organization Address [facility] Co de Phone Number SCANNED REPORT * (ABNORMAL) EXT Albumin, Random, Urine (08/21/2023 8:00 AM CDT) EXT Creatinine, Urine 38.8 mg/dL SCANNED REPORT EXT Microalbumin-R andom, U 4 mg/dL SCANNED REPORT EXT Albumin/Creati nine Ratio 100(H) 0 - 30 MG/G SCANNED REPORT 08/21/2023 8:00 AM CDT Narrative SCANNED REPORT - 08/23/2023 8:05 AM CDT Source result document attached to Order Number [id number] ([id number]) dated 08/21/2023. External results verified in Extract by Juliana Lamb on 08/23/2023 at 07:59 AM. Ordering Provider External Edis LAB URIN E ORDERABLES SCANNED REPORT * EXT Basic Metabolic Panel, Blood (08/21/2023 8:00 AM CDT) Pathologist [facility] EXT Sodium 141 135 - 149 mmol/L [...] at 07:59 AM. Ordering Provider External Edis LAB BLOO D NON ADD-ON SCANNED REPORT * EXT Complete Blood Count, Blood (08/21/2023 8:00 AM CDT) Pathologist [facility] EXT Leukocytes 6.76 4.50 - 11.00 K/uL [...] Source result document attached to Order Number [id number] ([id number]) dated 08/21/2023. External results verified in Extract by Juliana Lamb on 08/23/2023 at 07:59 AM. Ordering Provider External MBandar LAB RANDALLO D NON ADD-ON SCANNED REPORT * MR Foot [...] CDT 07/15/2023 6:29 AM CDT Annabel Villanueva APRN C.N.P., M.S.N. LAB BLOOD ADD-ON [facility] [address] [place] [address], [facility] [address] [place] [address] from Last 3 Months or Most Recently Relevant to Health Maintenance Additional Health Concerns Infection Onset Date Last Indicated Protective Environment 07/31/2022 3 Advance Directives For more information, please contact: [phone] Documents on File Type Date Recorded Patient Chairman Ceo Expl anation Advance Directives 10/28/2014 12:00 AM [...] Answer Comments Full Code: Discussed Care Teams Restaurant Recruiter Relationship Specialty Start Date End Date Elsewhere, Pcp PCP - General Family Medicine 06/20/19 Dr Miguel A Jeffries [address] [place] [phone] Laboratory Medicine 12/31/22 [facility] Laboratory Medicine 08/06/23 Dr. Jesus Jeffries MD External Primary Care Physician 12/21/22
--- OUTSIDE RECORDS SUMMARY | 2023-11-11 21:03 | XMS_ITS | Encounter Summary ---
Author Organization [facility] Address [address] [place] [address] Care Team Providers Care Furnace Caretaker Name Role Phone Elsewhere, Pcp Primary Care Provider Unavailabl e Encounter Details Date Type Department Care Team (Late st Contact Info) Description 08/21/2023 Orders Only Josep chandra [facility] [place], [place] [address] [place] [address] External, Ordering ProviderEdis Social History Tobacco Use Types Packs/Day Years Used Date Smoking Tobacco: Never Smokeless Tobacco: Never Alcohol Use Standard Drinks/Week Comments No 0 (1 standard drink = 0.6 oz pur e alcohol) None since 2017 Humiliation, Afraid, Rape, and Kick questionnair e [...] often do you attend chur ch or yarsani services? More than 4 times per year 07/12/2022 Do you belong to any clubs o r organizations such as hoahaoism groups, unions, fraternal or athletic groups, or [...] Answer Date Recorded PHQ-2 Score 1 05/04/2019 [facility] of Occupat ional Health - Occupational [...] to strenuous exercise (like a brisk walk)? 1 day 07/12/2022 On average, how many minutes do you engage in exercise at this level? 20 min 07/12/2022 Hunger Vital Sign Answer Date Recorded Within the past 12 months, y ou worried that your food would run out before you got the money to buy more. Never true 10/02/19 Within the past 12 months, t he food you bought just didn't last and you didn't have money to get more. Never true 10/01/2022 PRAPARE - Transportation Answer Date Re corded In the past 12 months, has l ack of transportation kept you from medical appointments or from getting medications? No 09/20 In the past 12 months, has l ack of transportation kept you from meetings, work, or from getting things needed for daily living? No 10/01/2022 Depression Answer Date Recor ded PHQ-9 Total Score (max 27) 2 05/04 Nutrition Answer Date Recorded Nutrition: EVOO Fat Source Yes 07/12 On average, how many serving s of fruits and vegetables do you eat per day (serving size is equal to 1 cup or approximately the size of a tennis ball)? 2-3 07/12/2022 Dental Answer Date Recorded Dental: Regular Dentist Yes 06/21/19 Employment Answer Date Recorded Employment status Retired 07/12/2022 Housing Stability Answer Date Recorded What is your living situation today? I have a [facility] place to live 10/01/2022 Education Answer Date Recorded What is the highest level of school you have completed or the highest degree you have received? Bachelor's degree (e.g., BA, AB, BS) 01/11/2019 Sex and Gender Information Value Date Recorded Sex Assigned at Male 05/07/2017 7:50 PM WELDER OPERATOR Gender Identity Male 05/07/2017 7:50 PM WELDER OPERATOR Sexual Orientation Straight 05/07/2017 7: 50 PM WELDER OPERATOR documented as of this encounter Plan of Treatment Upcoming Encounters Date Type Department Care Team (Late st Contact Info) Description 11/19/2023 2:00 PM CDT Procedure visit Department of Dermatology in [place], [place] [address] [place] [address] Caleb Vasquez M.D. [address] [place] [phone] 12/06/2023 7:30 AM CDT Ancillary Procedure Department of Ophthalmology in [place], [place] [address] [place] [phone] Jason Ann M.D. [address] [place] [phone] 12/06/2023 8:00 AM CDT Ancillary Procedure Department of Ophthalmology in [place], [place] [address] [place] [address] Jason Ann M.D. [address] [place] [address] 12/06/2023 8:45 AM CDT Procedure visit Department of Ophthalmology in [place], [place] [address] [place] [address] Jason Ann M.D. [address] [place] [phone] 12/06/2023 9:00 AM CDT Ancillary Procedure Department of Ophthalmology in [place], [place] [address] [place] [phone] Jason Ann M.D. [address] [place] [phone] 12/06/2023 9:30 AM CDT Office Visit Department of Ophthalmology in [place], [place] [address] [place] [phone] Jason Ann M.D. [address] [place] [phone] documented as of this encounter Procedures Procedure Name Priority Date/Time Associated Diagnosis Comments EXTM TACROLIMUS LEVEL, B Routine 08/21/2023 8:00 AM CDT documented in this encounter Results * EXT Tacrolimus, B (08/21/2023 8:00 AM CDT) EXT Tacrolimus 7.8 ng/mL SCANNED REPORT 08/21/2023 8:00 AM CDT Narrative SCANNED REPORT - 08/26/2023 12:34 PM CDT External results verified in Extract by Aliya Grant on 08/26/2023 at 12:33 PM. Ordering Provider External Edis LAB BLOO D NON ADD-ON SCANNED REPORT documented in this encounter Visit Diagnoses Not on filedocumented in this encounter Additional Health Concerns Infection Onset Date Last Indicated Resolved Time Protective Environment 07/31/2022 07/31/2022 Assessment Noted Time PHQ-9 Depression Total Score: 2 05/04/19 20 7:49 PM WELDER OPERATOR documented as of this encounter Care Teams Furnace Caretaker Relationship Specialty Start Date End Date Elsewhere, Pcp PCP - General Family Medicine 06/20/19 Dr Miguel A Jeffries [address] [place] [address] Laboratory Medicine 12/31/22 [facility] Laboratory Medicine 08/06/23 Dr. Jesus Jeffries MD External Primary Care Physician 12/21/22 documented as of this encounter
--- OUTSIDE RECORDS SUMMARY | 2023-11-11 21:03 | XMS_ITS | Encounter Summary ---
Author Organization [facility] Address [address] [place] [address] Care Team Providers Care Manager Ob Name Role Phone Elsewhere, Pcp Primary Care Provider Unavailabl e Reason for Referral * Outpatient (Routine) - Authorized Specialty Diagnoses / Procedures Referred By Raimundo cartagena Referred To Contact Ophthalmology Jason Ann M.D. [address] [place] [phone] [facility] Referral ID Status Reason Start Date Expiration Date V isits Requested Visits Authorized [id number] Authorized 10/28/2023 04/28/2025 1 1 Scheduling Instructions 1 MO FU, DIL/OCT OU, HEIDELBERG FA OS>Right Eye 1/2 dose Reason for Visit * Outpatient (Routine) - Closed Specialty Diagnoses / Procedures Referred By Raimundo cartagena Referred To Contact Ophthalmology Jason Ann M.D. [address] [place] [phone] [facility] Referral ID Status Reason Start Date Expiration Date Visits Re quested Visits Authorized [id number] Closed 10/08/2022 10/07/2025 1 1 Encounter Details Date Type Department Care Team (Latest Contact Info) Description 10/28/2023 4:15 PM CDT Office Visit Department of Ophthalmology in [place], [place] [address] [place] [phone] Jason Ann M.D. [address] [place] [phone] Central Serous Chorioretinopathy Bilateral (Primary Dx); Cystoid Macular Degeneration Left Eye; Diplopia Social History Tobacco Use Types Packs/Day Years Used Date Smoking Tobacco: Never Passive Smoke Exposure: Past Smokeless Tobacco: Never Passive Exposure Comments:F rom age 1 - 20 Alcohol Use Standard Drinks/Week Comments Not Currently 0 (1 standard drink = 0.6 oz pur e alcohol) None since 2016 [facility] Utilities Answer Date Recorded In the past 12 months has e electric, gas, oil, or water [employer] threatened to shut off services in your [...] How often do you attend chur or taoist services? More than 4 times per year 07/12/2022 Do you belong to any clubs o r organizations such as adventist groups, unions, fraternal or athletic groups, or [...] Answer Date Recorded PHQ-2 Score 1 05/04/2019 [facility] of Occupat ional Health - Occupational Stress [...] your living situation today? I have a [facility] place to live 09/12/2023 Education Answer Date Recorded What is the highest level of school you have completed or the highest degree you have received? Bachelor's degree (e.g., BA, AB, BS) 01/11/2019 Sex and Gender Information Value Date Recorded Sex Assigned at Male 05/07/2017 7:50 PM SUSPENSION CORD TIER Gender Identity Male 05/07/2017 7:50 PM SUSPENSION CORD TIER Sexual Orientation Straight 05/07/2017 7: 50 PM SUSPENSION CORD TIER documented as of this encounter Progress Notes * Jason Ann M.D. - 10/28/2023 4:15 PM CDT Jarett Gupta was seen today for No chief complaint on file. # diplopia Binocular No significant metamorphopsia # Cystoid macular edema, LEFT eye # Hx of central serous chorioretinopathy Resolved with observation Was secondary to prior corticosteroid use. Would be exacerbated by continued steroid use. # systemic lupus No longer on plaquenil since September 2013, secondary to resolution of lupus activity following renal transplant no evidence of retinal toxicity # renal failure, s/p transplant in April 2013 Doing well. On Tacrolimus. # minimal cataracts Monitor # Dry eye syndrome, both eyes # Meibomian gland dysfunction, both eyes Warm compresses FOUR TIMES A DAY, preservative-free artificial tears q2h hours, GenTeal ointment atnight Imaging OCT macula 10/28/2023 Right eye: drusen, no fluid Left eye: outer retinal thinning with photoreceptor disruption, drusen, mild CME associated with micros, OS; small RPED Fluorescein angiogram 10/08/2022 Right eye: normal av transit, no leakage Left eye: small foci of staining at fovea and inferior arcade; trace leaking juxtafoveal micros Fundus photo 10/08/2022 Consistent with exam Overall Impression 10/08/2022: 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 Resolved on OCT. No evidence of Plaquenil toxicity, and he is no longer on Plaquenil since 09/2013. Occasional paracentral flashes. Today, mild foveolar CME associated with micros, LEFT eye. Rule-out sleep apnea vs. Retinal angiomatous proliferation (RAP) Plan: Recommend return in 3-4 weeks with fluorescein angiography (HALF DOSE OF FLUORESCEIN), transit LEFTeye and repeat OCT. Refer to orthoptics to evaluate binocular diplopia Dry eye treatment, as documented above. No longer on Plaquenil, thus does not need continued observation. If he re- starts Plaquenil, he will require continued testing. Recommend avoiding corticosteroids and other CENTRAL SEROUS RETINOPATHY triggers; Daily Amsler grid documented in this encounter Plan of Treatment Upcoming Encounters Date Type Department Care Team (Late st Contact Info) Description 11/19/2023 2:00 PM CDT Procedure visit Department of Dermatology in [place], [place] [address] [place] [phone] Caleb Vasquez M.D. [address] [place] [phone] 12/06/2023 7:30 AM CDT Ancillary Procedure Department of Ophthalmology in [place], [place] [address] [place] [phone] Jason Ann M.D. [address] [place] [phone] 12/06/2023 8:00 AM CDT Ancillary Procedure Department of Ophthalmology in [place], [place] [address] [place] [phone] Jason Ann M.D. [address] [place] [phone] 12/06/2023 8:45 AM CDT Procedure visit Department of Ophthalmology in [place], [place] [address] [place] [phone] Jason Ann M.D. [address] [place] [phone] 12/06/2023 9:00 AM CDT Ancillary Procedure Department of Ophthalmology in [place], [place] [address] [place] [phone] Jason Ann M.D. [address] [place] [phone] 12/06/2023 9:30 AM CDT Office Visit Department of Ophthalmology in [place], [place] [address] [place] [phone] Jason Ann M.D. [address] [place] [phone] Scheduled Orders Name Type Priority Associated Diagnoses Orde r Schedule Fluorescein Angiography - OU - Both Eyes Ophthalmology Routine Central Serous Chorioretinopathy Bilateral Expected: 11/28/2023, Expires: 01/27/2025 Sensory Motor Exam Ophthalmology Routine Diplopia Expected: 10/28/2023, Expires: 01/27/2025 Scheduled Referrals Name Type Priority Associated Diagnoses Order Schedule Ophthalmology office visit (clinic) Outpatient Referral Routine Expected: 11/28/2023, Expires: 01/27/2025 documented as of this encounter Visit Diagnoses Diagnosis Central Serous Chorioretinopathy Bilateral- Primary Cystoid Macular Degeneration Left Eye Diplopia documented in this encounter Additional Health Concerns Infection Onset Date Last Indicated Resolved Time Protective Environment 07/31/2022 07/31/2022 Assessment Noted Time PHQ-9 Depression Total Score: 2 05/04/19 20 7:49 PM SUSPENSION CORD TIER documented as of this encounter Care Teams Manager Ob Relationship Specialty Start Date End Date Elsewhere, Pcp PCP - General Family Medicine 06/20/19 Dr Miguel A Jeffries [address] [place] [phone] Laboratory Medicine 12/31/22 [facility] Laboratory Medicine 08/06/23 Dr. Jesus Jeffries MD External Primary Care Physician 12/21/22 documented as of this encounter
--- OUTSIDE RECORDS SUMMARY | 2023-11-11 21:03 | XMS_ITS | Encounter Summary ---
Author Organization [facility] Address 200 [place] [address] Care Team Providers Care Drafting Layout Man Name Role Phone Elsewhere, Pcp Primary Care Provider Unavailabl e Reason for Referral * Medication Prior Authorization - Closed Specialty Diagnoses / Procedures Referred By Contsukh t Referred To Contact Diagnoses Transplant Renal (HCC) High Risk Medication Immunodeficiency (HCC) Annabel Villanueva APRN, C.N.P., M.S.N. [address] [place] [phone] Referral ID Status Reason Start Date Expiration Date Visits Re quested Visits Authorized [id number] Closed 1 1 Reason for Visit * Reason Comments Med Refill Encounter Details Date Type Department Care Team (Late st Contact Info) Description 08/26/2023 [facility] [place], [place] 200 [place] [phone] Breonna Cabrera R.N., C.C.T.C. [address] [place] [phone] Med Refill Social History Tobacco Use Types Packs/Day Years Used Date Smoking Tobacco: Never Smokeless Tobacco: Never Alcohol Use Standard Drinks/Week Comments No 0 (1 standard drink = 0.6 oz pur e alcohol) None since 2016 Humiliation, Afraid, Rape, and Kick questionnair e [...] How often do you attend chur or jehovah's witness services? More than 4 times per year 07/12/2022 Do you belong to any clubs o r organizations such as spiritism groups, unions, fraternal or athletic groups, or [...] Answer Date Recorded PHQ-2 Score 1 05/04/2019 [facility] - Occupational Stress Questionnaire Answer Date [...] your living situation today? I have a [facility] place to live 10/01/2022 Education Answer Date Recorded What is the highest level of school you have completed or the highest degree you have received? Bachelor's degree (e.g., BA, AB, BS) 01/11/2019 Sex and Gender Information Value Date Recorded Sex Assigned at Male 05/07/2017 7:50 PM HYBRID TECHNOLOGIST Gender Identity Male 05/07/2017 7:50 PM HYBRID TECHNOLOGIST Sexual Orientation Straight 05/07/2017 7: 50 PM HYBRID TECHNOLOGIST documented as of this encounter Plan of Treatment Upcoming Encounters Date Type Department Care Team (Late st Contact Info) Description 11/19/2023 2:00 PM CDT Procedure visit Department of Dermatology in [place], [place] [address] [place] [phone] Caleb Vasquez M.D. [address] [place] [phone] 12/06/2023 7:30 AM CDT Ancillary Procedure Department of Ophthalmology in [place], [place] [address] [place] [phone] Jason Ann M.D. [address] [place] [phone] 12/06/2023 8:00 AM CDT Ancillary Procedure Department of Ophthalmology in [place], [place] [address] [place] [phone] Jason Ann M.D. [address] [place] [phone] 12/06/2023 8:45 AM CDT Procedure visit Department of Ophthalmology in [place], [place] [address] [place] [phone] Jason Ann M.D. [address] [place] [phone] 12/06/2023 9:00 AM CDT Ancillary Procedure Department of Ophthalmology in [place], [place] [address] [place] [phone] Jason Ann M.D. [address] [place] [phone] 12/06/2023 9:30 AM CDT Office Visit Department of Ophthalmology in [place], [place] [address] [place] [phone] Jason Ann M.D. [address] [place] [phone] documented as of this encounter Visit Diagnoses Diagnosis Transplant Renal (HCC) High Risk Medication Immunodeficiency (HCC) documented in this encounter Additional Health Concerns Infection Onset Date Last Indicated Resolved Time Protective Environment 07/31/2022 07/31/2022 Assessment Noted Time PHQ-9 Depression Total Score: 2 05/04/19 20 7:49 PM HYBRID TECHNOLOGIST documented as of this encounter Care Teams Drafting Layout Man Relationship Specialty Start Date End Date Elsewhere, Pcp PCP - General Family Medicine 06/20/19 Dr Miguel A Jeffries [address] [place] [phone] Laboratory Medicine 12/31/22 [facility] Laboratory Medicine 08/06/23 Dr. Jesus Jeffries MD External Primary Care Physician 12/21/22 documented as of this encounter
--- OUTSIDE RECORDS SUMMARY | 2023-11-11 21:03 | XMS_ITS | Encounter Summary ---
Author Organization [facility] Address [address] [place] [address] Care Team Providers Care Shrub Grower Name Role Phone Elsewhere, Pcp Primary Care Provider Unavailabl e Encounter Details Date Type Department Care Team (Late st Contact Info) Description 10/28/2023 Ancillary Procedure Department of Ophthalmology Social History Tobacco Use Types Packs/Day Years Used Date Smoking Tobacco: Never Passive Smoke Exposure: Past Smokeless Tobacco: Never Passive Exposure Comments:F rom age 1 - 20 Alcohol Use Standard Drinks/Week Comments Not Currently 0 (1 standard drink = 0.6 oz pur e alcohol) None since 2017 [facility] Utilities Answer Date Recorded In the [...] often do you attend chur ch or zoroastrian services? More than 4 times per year 07/12/2022 Do you belong to any clubs o r organizations such as pentecostalism groups, unions, fraternal or athletic groups, or [...] Answer Date Recorded PHQ-2 Score 1 05/04/2019 [facility] of Occupat ional Health - Occupational Stress [...] your living situation today? I have a [facility] place to live 09/12/2023 Education Answer Date Recorded What is the highest level of school you have completed or the highest degree you have received? Bachelor's degree (e.g., BA, AB, BS) 01/11/2019 Sex and Gender Information Value Date Recorded Sex Assigned at Male 05/07/2017 7:50 PM GROUND SYSTEMS ENGINEER Gender Identity Male 05/07/2017 7:50 PM GROUND SYSTEMS ENGINEER Sexual Orientation Straight 05/07/2017 7: 50 PM GROUND SYSTEMS ENGINEER documented as of this encounter Plan of Treatment Upcoming Encounters Date Type Department Care Team (Late st Contact Info) Description 11/19/2023 2:00 PM CDT Procedure visit Department of Dermatology in [place], [place] [address] [place] [phone] Caleb Vasquez M.D. [address] [place] [phone] 12/06/2023 7:30 AM CDT Ancillary Procedure Department of Ophthalmology in [place], [place] [address] [place] [phone] Jason Ann M.D. [address] [place] [phone] 12/06/2023 8:00 AM CDT Ancillary Procedure Department of Ophthalmology in [place], [place] [address] [place] [phone] Jason Ann M.D. [address] [place] [phone] 12/06/2023 8:45 AM CDT Procedure visit Department of Ophthalmology in [place], [place] [address] [place] [phone] Jason Ann M.D. [address] [place] [phone] 12/06/2023 9:00 AM CDT Ancillary Procedure Department of Ophthalmology in [place], [place] [address] [place] [phone] Jason Ann M.D. [address] [place] [phone] 12/06/2023 9:30 AM CDT Office Visit Department of Ophthalmology in [place], [place] [address] [place] [phone] Jason Ann M.D. [address] [place] [phone] documented as of this encounter Procedures Procedure Name Priority Date/Time Associated Diagnosis Comments OPHTHALMOLOGY IMAGE EXAM Routine 10/28/2023 12:00 AM CDT documented in this encounter Results * Eye Spectralis OCT-Ophthalmology Image Exam (10/28/2023 12:00 AM CDT) Narrative IIMS - 10/28/2023 3:42 PM CDT This order has been created and auto-finalized to support the import of images acquired without order. The clinical documentation to support these images can be found on the encounter that produced images. Provider Not In System IMG NON RAD IMAGI NG PROCEDURES [facility] NA documented in this encounter Visit Diagnoses Not on filedocumented in this encounter Additional Health Concerns Infection Onset Date Last Indicated Resolved Time Protective Environment 07/31/2022 07/31/2022 Assessment Noted Time PHQ-9 Depression Total Score: 2 05/04/19 20 7:49 PM GROUND SYSTEMS ENGINEER documented as of this encounter Care Teams Shrub Grower Relationship Specialty Start Date End Date Elsewhere, Pcp PCP - General Family Medicine 06/20/19 Dr Miguel A Jeffries [address] [place] [address] Laboratory Medicine 12/31/22 [facility] Laboratory Medicine 08/06/23 Dr. Jesus Jeffries MD External Primary Care Physician 12/21/22 documented as of this encounter
--- OUTSIDE RECORDS SUMMARY | 2023-11-11 21:03 | XMS_ITS | Encounter Summary ---
Author Organization [facility] Address [address] [place] [address] Care Team Providers Care Router Machine Operator Name Role Phone Elsewhere, Pcp Primary Care Provider Unavailabl e Reason for Visit * Reason Onset Date Comments Appt Request 09/17/2023 DERM Encounter Details Date Type Department Care Team (Latest Contact Info) Description 09/17/2023 Clinical Communication Department of Dermatology in [place], [place] [address] [place] [address] Prescheduling, Provider Appt Request (DERM) Social History Tobacco Use Types Packs/Day Years Used Date Smoking Tobacco: Never Smokeless Tobacco: Never Alcohol Use Standard Drinks/Week Comments No 0 (1 standard drink = 0.6 oz pur e alcohol) None since 2016 [facility] Utilities Answer Date Recorded In the past 12 months has th e electric, gas, oil, or water company [...] often do you attend chur ch or confucianism services? More than 4 times per year 07/12/2022 Do you belong to any clubs o r organizations such as methodist groups, unions, fraternal or athletic groups, or [...] Answer Date Recorded PHQ-2 Score 1 05/04/2019 [facility] of Occupat ional Health - Occupational Stress [...] your living situation today? I have a [facility] place to live 09/12/2023 Education Answer Date Recorded What is the highest level of school you have completed or the highest degree you have received? Bachelor's degree (e.g., BA, AB, BS) 01/11/2019 Sex and Gender Information Value Date Recorded Sex Assigned at Male 05/07/2017 7:50 PM MANAGER TRANSIT Gender Identity Male 05/07/2017 7:50 PM MANAGER TRANSIT Sexual Orientation Straight 05/07/2017 7: 50 PM MANAGER TRANSIT documented as of this encounter Plan of Treatment Upcoming Encounters Date Type Department Care Team (Late st Contact Info) Description 11/19/2023 2:00 PM CDT Procedure visit Department of Dermatology in [place], [place] [address] [place] [phone] Caleb Vasquez M.D. 200 [place] [phone] 12/06/2023 7:30 AM CDT Ancillary Procedure Department of Ophthalmology in [place], [place] [address] [place] [phone] Jason Ann M.D. 200 [place] [phone] 12/06/2023 8:00 AM CDT Ancillary Procedure Department of Ophthalmology in [place], [place] [address] [place] [phone] Jason Ann M.D. [address] [place] [phone] 12/06/2023 8:45 AM CDT Procedure visit Department of Ophthalmology in [place], [place] [address] [place] [phone] Jason Ann M.D. [address] [place] [phone] 12/06/2023 9:00 AM CDT Ancillary Procedure Department of Ophthalmology in [place], [place] [address] [place] [phone] Jason Ann M.D. [address] [place] [phone] 12/06/2023 9:30 AM CDT Office Visit Department of Ophthalmology in [place], [place] [address] [place] [phone] Jason Ann M.D. [address] [place] [phone] documented as of this encounter Visit Diagnoses Not on filedocumented in this encounter Additional Health Concerns Infection Onset Date Last Indicated Resolved Time Protective Environment 07/31/2022 07/31/2022 Assessment Noted Time PHQ-9 Depression Total Score: 2 05/04/19 20 7:49 PM MANAGER TRANSIT documented as of this encounter Care Teams Router Machine Operator Relationship Specialty Start Date End Date Elsewhere, Pcp PCP - General Family Medicine 06/20/19 Dr Miguel A Jeffries [address] [place] [address] Laboratory Medicine 12/31/22 [facility] Laboratory Medicine 08/06/23 Dr. Jesus Jeffries MD External Primary Care Physician 12/21/22 documented as of this encounter
--- OUTSIDE RECORDS SUMMARY | 2023-11-11 21:03 | XMS_ITS | Encounter Summary ---
Author Organization [facility] Address [address] [place] [phone] Care Team Providers Care Restaurant Worker Name Role Phone Elsewhere, Pcp Primary Care Provider Unavailabl e Reason for Referral * Physical Therapy (Routine) - Authorized Specialty Diagnoses / Procedures Referred By Raimundo t Referred To Contact Physical Therapy Diagnoses Tendinitis Achilles Right Addy Hodge MPAS, P.A.-C., M.S. [address] [place] [phone] Referral ID Status Reason Start Date Expiration Date V isits Requested Visits Authorized [id number] Authorized Other 09/17/2023 03/18/2025 99 99 Reason for Visit * Outpatient (Routine) - Closed Specialty Diagnoses / Procedures Referred By Contac t Referred To Contact Orthopedic Surgery Diagnoses Pain Foot Right Neuroma Gutierres's Right Sarika Velazquez M.D., Ph.D. [address] [place] [phone] [facility] Referral ID Status Reason Start Date Expiration Date Visits Re quested Visits Authorized [id number] Closed 08/14/2023 02/12/2025 1 1 Encounter Details Date Type Department Care Team (Latest Contact Info) Description 09/17/2023 1:00 PM CDT Comprehensive Visit Department of Orthopedic Surgery in [place], [place] [address] [place] [phone] Addy Hodge MPAS PEdyta., M.S. 200 [place] [phone] Tendinitis Achilles Right (Primary Dx); Pain Foot Right; Neuroma Gutierres's Right Social History Tobacco Use Types Packs/Day Years Used Date Smoking Tobacco: Never Smokeless Tobacco: Never Alcohol Use Standard Drinks/Week Comments No 0 (1 standard drink = 0.6 oz pur e alcohol) None since 2016 [facility] [employer] Answer Date Recorded In the past 12 months has e electric, gas, oil, or water [employer] threatened to shut off services in your [...] often do you attend chur ch or yazidism services? More than 4 times per year 07/12/2022 Do you belong to any clubs o r organizations such as rastafarian groups, unions, fraternal or athletic groups, or [...] Answer Date Recorded PHQ-2 Score 1 05/04/2019 [facility] - Occupational Stress Questionnaire Answer Date Recorded [...] Sex Assigned at Male 05/07/2017 7:50 PM REFRIGERATION REPAIR SUPERVISOR Gender Identity Male 05/07/2017 7:50 PM REFRIGERATION REPAIR SUPERVISOR Sexual Orientation Straight 05/07/2017 7: 50 PM REFRIGERATION REPAIR SUPERVISOR documented as of this encounter Consult Notes * Addy Hodge, MINNIE, P.A.-C., M.S. - 09/17/2023 1:00 PM CDT CHIEF COMPLAINT / REASON FOR VISIT Jarett Gupta is a 68 y.o. male who presents for evaluation of and is under the care of ELSEWHERE, PCP. Patient referred by Sarika Velazquez M.D., Ph.D. HISTORY OF PRESENT ILLNESS Jarett Gupta reports to 5 year history of bilateral foot and ankle pain. In his right Achilles he has been having pain that can be quite severe reaching 7/10 with activity. He points to approximately 3 to 4 in proximal to insertion site of Achilles tendon. He does find icing and Voltarengel beneficial. Currently his pain is mild in this area but we will flare if he has increase activities. In his right foot he also has pain in his third webspace with numbing and tingling sensation that extends in his toes. Reports that he does have MRI findings with evidence of Gutierres's neuroma inthis location. In his left foot he has pain in the balls of his feet. He points to his second metata rsal head. He does utilize arch supports without metatarsal pads. OBJECTIVE PHYSICAL EXAM Orthopedic Physical Examination General Appearance The patient is alert and oriented to person, place, and time. Appropriate hygiene and behavior. Vessels: Dorsalis pedis and posterior tibial pulses are palpable bilateral. Neuro: Gross sensation intact bilaterally. Skin: Thickness and color are appropriate. Musculoskeletal: There is good pain-free strength of dorsiflexors, plantar flexors, invertors and evertors of both feet. Tender to palpation right third webspace with Henri's click. Reports tenderness when pressing on third metatarsal head adjacent to webspace. Left foot tenderness when pressing on second metatarsal head. Discomfort noted when pressing on Achilles tendon 3 to 4 in proximal to insertion site. Walks with a nonantalgic heel-toe gait. Has neutral arch with weight-bearing. Mild hindfoot valgus greater on left foot. Range of motion through ankle joint is within normal limits. DIAGNOSTICS IMAGING Independently reviewed x-ray results and agree with radiologist's report EXAM: MR FOOT RIGHT WITHOUT AND WITH IV CONTRAST 08/13/2023 IMPRESSION: Nonspecific enhancing synovitis of the ankle and subtalar joint along with the posterior ankle recess and communicating flexor hallucis longus. Less prominent enhancing tenosynovitis of the posteriortibialis, flexor digitorum longus, and peroneus longus and [...] ununited fracture. Normal variant accessory peroneus quartus. ASSESSMENT / PLAN Patient's physical exam findings, clinical history and imaging studies were reviewed/correlated during visit. #1 Pain Foot Right #2 Neuroma Gutierres's Right #3 Tendinitis Achilles Right Mr. Gupta has multiple areas of tenderness/pain in feet and ankle bilaterally. He does have evidence of metatarsalgia bilaterally with potential Gutierres's neuroma at right third webspace. I have advised him to utilize good stiff soled shoes with a rocker bottom, arch supports with metatarsal pad, wide toe box shoes, topical Voltaren gel, and rest as needed. He also is tender at his right Achillestendon. I have reviewed with him the importance of eccentric exercises and massage therapy for Achilles tendinopathy. He does wish to work with physical therapy and script has been provided. documented in this encounter Plan of Treatment Upcoming Encounters Date Type Department Care Team (Late st Contact Info) Description 11/19/2023 2:00 PM CDT Procedure visit Department of Dermatology in [place], [place] [address] [place] [phone] Caleb Vasquez M.D. [address] [place] [phone] 12/06/2023 7:30 AM CDT Ancillary Procedure Department of Ophthalmology in [place], [place] [address] [place] [phone] Jason Ann M.D. [address] [place] [phone] 12/06/2023 8:00 AM CDT Ancillary Procedure Department of Ophthalmology in [place], [place] [address] [place] [phone] Jason Ann M.D. [address] [place] [phone] 12/06/2023 8:45 AM CDT Procedure visit Department of Ophthalmology in [place], [place] [address] [place] [phone] Jason Ann M.D. [address] [place] [phone] 12/06/2023 9:00 AM CDT Ancillary Procedure Department of Ophthalmology in [place], [place] [address] [place] [phone] Jason Ann M.D. [address] [place] [phone] 12/06/2023 9:30 AM CDT Office Visit Department of Ophthalmology in [place], [place] [address] [place] [address] Jason Ann M.D. [address] [place] [phone] documented as of this encounter Visit Diagnoses Diagnosis Tendinitis Achilles Right- Primary Pain Foot Right Neuroma Gutierres's Right documented in this encounter Additional Health Concerns Infection Onset Date Last Indicated Resolved Time Protective Environment 07/31/2022 07/31/2022 Assessment Noted Time PHQ-9 Depression Total Score: 2 05/04/19 20 7:49 PM REFRIGERATION REPAIR SUPERVISOR documented as of this encounter Care Teams Restaurant Worker Relationship Specialty Start Date End Date Elsewhere, Pcp PCP - General Family Medicine 06/20/19 Dr Miguel A Jeffries [address] [place] [phone] Laboratory Medicine 12/31/22 [facility] Laboratory Medicine 08/06/23 Dr. Jesus Jeffries MD External Primary Care Physician 12/21/22 documented as of this encounter
--- OUTSIDE RECORDS SUMMARY | 2023-11-11 21:03 | XMS_ITS ---
Author Organization [facility] Address [address] [place] [address] Care Team Providers Care Adventure Education Teacher Name Role Phone Unavailable Unavailable Unavailable Surgery Details Not on file Complications Check Surgery Details section. Procedure Estimated Blood Loss Check Surgery Details section. Procedure Findings Check Surgery Details section. Procedure Specimens Taken Check Surgery Details section.
--- OUTSIDE RECORDS SUMMARY | 2023-11-11 21:04 | XMS_ITS | Encounter Summary ---
Author Organization [facility] Address [address] [place] [address] Care Team Providers Care Large Animal Husbandry Technician Name Role Phone Elsewhere, Pcp Primary Care Provider Unavailabl e Encounter Details Date Type Department Care Team (Late st Contact Info) Description 03/16/2016 Historical Ophthalmology RST OPH Marty Mishra M.D., Ph.D. [address] [place] [phone] Social History Tobacco Use Types Packs/Day Years Used Date Smoking Tobacco: Never Assessed Sex and Gender Information Value Date Recorded Sex Assigned at Male 05/07/2017 7:50 PM BASS GUITAR TEACHER Gender Identity Male 05/07/2017 7:50 PM BASS GUITAR TEACHER Sexual Orientation Straight 05/07/2017 7: 50 PM BASS GUITAR TEACHER documented as of this encounter Progress Notes * Marty Mishra M.D., Ph.D. - 03/16/2016 8:46 AM CST Eye Subsequent Visit HISTORY OF PRESENT ILLNESS Patient is here for visual field testing and photos. Allergies: Medication :PENICILLIN CONSULT - May use PCN, NO cephalosporin; CEFPROZIL - Rash ;Other :DUST - Cough IMPRESSION / REPORT / PLAN Manual visual field: full OU Cirrus OCT: normal retinal nerve fiber layer thickness OU Optovue OCT angiography: normal peripapillary capillary density Spectralis OCT of the nerve: normal OU without evidence of photoreceptor disruption See note on 02/15/16, for impression and plan. CD Reports - EYESV Id: [id number] Status: Fnl documented in this encounter Plan of Treatment Upcoming Encounters Date Type Department Care Team (Late st Contact Info) Description 11/19/2023 2:00 PM CDT Procedure visit Department of Dermatology in [place], [place] [address] [place] [phone] Caleb Vasquez M.D. [address] [place] [phone] 12/06/2023 7:30 AM CDT Ancillary Procedure Department of Ophthalmology in [place], [place] [address] [place] [phone] Jason Ann M.D. [address] [place] [phone] 12/06/2023 8:00 AM CDT Ancillary Procedure Department of Ophthalmology in [place], [place] [address] [place] [phone] Jason Ann M.D. [address] [place] [phone] 12/06/2023 8:45 AM CDT Procedure visit Department of Ophthalmology in [place], [place] [address] [place] [phone] Jason Ann M.D. [address] [place] [phone] 12/06/2023 9:00 AM CDT Ancillary Procedure Department of Ophthalmology in [place], [place] [address] [place] [phone] Jason Ann M.D. [address] [place] [phone] 12/06/2023 9:30 AM CDT Office Visit Department of Ophthalmology in [place], [place] [address] [place] [phone] Jason Ann M.D. [address] [place] [address], [place] [phone] documented as of this encounter Visit Diagnoses Not on filedocumented in this encounter Additional Health Concerns Infection Onset Date Last Indicated Resolved Time COVID19 Pending 10/04/2019 10/04/2019 10/04/2019 1 1:35 PM CDT COVID19 Pending 11/07/2019 11/07/2019 11/07/2019 6 :00 PM CDT COVID19 11/11/2021 11/11/2021 12/01/2021 4:45 AM CDT Protective Environment 07/31/2022 07/31/2022 Assessment Noted Time PHQ-9 Depression Total Score: 2 05/05/19 15 8:27 AM BASS GUITAR TEACHER documented as of this encounter Care Teams Large Animal Husbandry Technician Relationship Specialty Start Date End Date Elsewhere, Pcp PCP - General Family Medicine 06/20/[address] [phone] Laboratory Medicine 02/11/20 12/30/[address] [address] Laboratory Medicine 02/11/20 12/30/22 Dr Miguel A Jeffries [address] [place] [address] Laboratory Medicine 12/31/22 [facility] Laboratory Medicine 08/06/23 Dr. Jesus Jeffries MD External Primary Care Physician 12/21/22 documented as of this encounter
--- OUTSIDE RECORDS SUMMARY | 2023-11-11 21:04 | XMS_ITS | Encounter Summary ---
Author Organization [facility] Address [address] [place] [address] Care Team Providers Care Hull Sorter Name Role Phone Elsewhere, Pcp Primary Care Provider Unavailabl e Encounter Details Date Type Department Care Team (Late st Contact Info) Description 10/01/2012 Historical Ophthalmology RST OPH Jason Ann M.D. [address] [place] [address] Social History Tobacco Use Types Packs/Day Years Used Date Smoking Tobacco: Never Assessed Sex and Gender Information Value Date Recorded Sex Assigned at Male 05/07/2017 7:50 PM FOREST FIRE FIGHTERS DISPATCHER Gender Identity Male 05/07/2017 7:50 PM FOREST FIRE FIGHTERS DISPATCHER Sexual Orientation Straight 05/07/2017 7: 50 PM FOREST FIRE FIGHTERS DISPATCHER documented as of this encounter Progress Notes * Jason Ann M.D. - 10/01/2012 8:00 AM CDT Eye General CHIEF COMPLAINT Plaquenil testing HISTORY OF PRESENT ILLNESS Patient denies blurred vision; ocular pain; flashes and floaters. IMPRESSION / REPORT / PLAN The following tests have been completed and need interpretation. Natalya visual field mild reduction in sensitivity, OU. No significant focal defects or scotomata The following tests have been completed and need interpretation. OCT macula, Autofluorescence Hyperfluorescent area of retina inferior to fovea, left eye, within macula. 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 I have advised Mr. Gupta that corticosteroid use may be associated with progressive vision loss, centrally. Overall impression: Central Serous Chorioretinopathy No evidence of Plaquenil toxicity on 200mg po qd Plan: O.K. to continue plaquenil recommend avoiding corticosteroids return in six months with FA, transit left, OCT and FAF return sooner if vision worsens in either eye. Letter to Dr. Meryl O.D. DIAGNOSIS #1 central serous chorioretinopathy #2 systemic lupus #3 renal failure CDM Reports - [facility] Status: Fnl documented in this encounter Plan of Treatment Upcoming Encounters Date Type Department Care Team (Late st Contact Info) Description 11/19/2023 2:00 PM CDT Procedure visit Department of Dermatology in [place], [place] [address] [place] [phone] Caleb Vasquez M.D. [address] [place] [phone] 12/06/2023 7:30 AM CDT Ancillary Procedure Department of Ophthalmology in [place], [place] [address] [place] [phone] Jason Ann M.D. [address] [place] [phone] 12/06/2023 8:00 AM CDT Ancillary Procedure Department of Ophthalmology in [place], [place] [address] [place] [phone] Jason Ann M.D. [address] [place] [phone] 12/06/2023 8:45 AM CDT Procedure visit Department of Ophthalmology in [place], [place] [address] [place] [phone] Jason Ann M.D. [address] [place] [phone] 12/06/2023 9:00 AM CDT Ancillary Procedure Department of Ophthalmology in [place], [place] [address] [place] [address] Jason Ann M.D. [address] [place] [phone] 12/06/2023 9:30 AM CDT Office Visit Department of Ophthalmology in [place], [place] [address] [place] [phone] Jason Ann M.D. [address] [place] [phone] documented as of this encounter Visit Diagnoses Not on filedocumented in this encounter Additional Health Concerns Infection Onset Date Last Indicated Resolved Time COVID19 Pending 10/04/2019 10/04/2019 10/04/2019 1 1:35 PM CDT COVID19 Pending 11/07/2019 11/07/2019 11/07/2019 6 :00 PM CDT COVID19 11/11/2021 11/11/2021 12/01/2021 4:45 AM CDT Protective Environment 07/31/2022 07/31/2022 Assessment Noted Time PHQ-9 Depression Total Score: 4 10/01/19 13 11:03 AM CDT documented as of this encounter Care Teams Hull Sorter Relationship Specialty Start Date End Date Elsewhere, Pcp PCP - General Family Medicine 06/20/[address] [address] Laboratory Medicine 02/11/20 12/30/[address] [address] Laboratory Medicine 02/11/20 12/30/22 Dr Miguel A Jeffries [address] [place] [phone] Laboratory Medicine 12/31/22 [facility][Note 3] Laboratory Medicine 08/06/23 Dr. Jesus Jeffries MD External Primary Care Physician 12/21/22 documented as of this encounter
--- OUTSIDE RECORDS SUMMARY | 2023-11-11 21:04 | XMS_ITS | Encounter Summary ---
Author Organization [facility] Address [address] [place] [address] Care Team Providers Care Lacer And Tier Name Role Phone Elsewhere, Pcp Primary Care Provider Unavailabl e Encounter Details Date Type Department Care Team (Late st Contact Info) Description 08/21/2023 Orders Only [facility] [place], [place] [address] [place] [address] External, Ordering ProviderEdis Social History Tobacco Use [...] often do you attend chur ch or muslim services? More than 4 times per year 07/12/2022 Do you belong to any clubs o r organizations such as mandaen groups, unions, fraternal or athletic groups, or [...] your living situation today? I have a [facility] place to live 10/01/2022 Education Answer Date Recorded What is the highest level of school you have completed or the highest degree you have received? Bachelor's degree (e.g., BA, AB, BS) 01/11/2019 Sex and Gender Information Value Date Recorded Sex Assigned at Male 05/07/2017 7:50 PM SPOOLER Gender Identity Male 05/07/2017 7:50 PM SPOOLER Sexual Orientation Straight 05/07/2017 7: 50 PM SPOOLER documented as of this encounter Plan of Treatment Upcoming Encounters Date Type Department Care Team (Late st Contact Info) Description 11/19/2023 2:00 PM CDT Procedure visit Department of Dermatology in [place], [place] [address] [place] [address] Caleb Vasquez M.D. [address] [place] [phone] 12/06/2023 7:30 AM CDT Ancillary Procedure Department of Ophthalmology in [place], [place] [address] [place] [phone] Jason Ann M.D. [address] [place] [phone] 12/06/2023 8:00 AM CDT Ancillary Procedure Department of Ophthalmology in [place], [place] [address] [place] [address] Jason Ann M.D. [address] [place] [address] 12/06/2023 8:45 AM CDT Procedure visit Department of Ophthalmology in [place], [place] [address] [place] [address] Jason Ann M.D. [address] [place] [phone] 12/06/2023 9:00 AM CDT Ancillary Procedure Department of Ophthalmology in [place], [place] [address] [place] [phone] Jason Ann M.D. [address] [place] [phone] 12/06/2023 9:30 AM CDT Office Visit Department of Ophthalmology in [place], [place] [address] [place] [phone] Jason Ann M.D. [address] [place] [phone] documented as of this encounter Procedures Procedure Name Priority Date/Time Associated Diagnosis Comments EXTM TACROLIMUS LEVEL, B Routine 08/21/2023 8:00 AM CDT documented in this encounter Results * EXT Tacrolimus, B (08/21/2023 8:00 AM CDT) EXT Tacrolimus 7.8 ng/mL SCANNED REPORT 08/21/2023 8:00 AM CDT Narrative SCANNED REPORT - 08/26/2023 9:45 AM CDT External results verified in Extract by Juliana Lamb on 08/26/2023 at 09:43 AM. Ordering Provider External Edis LAB BLOO D NON ADD-ON SCANNED REPORT documented in this encounter Visit Diagnoses Not on filedocumented in this encounter Additional Health Concerns Infection Onset Date Last Indicated Resolved Time Protective Environment 07/31/2022 07/31/2022 Assessment Noted Time PHQ-9 Depression Total Score: 2 05/04/19 20 7:49 PM SPOOLER documented as of this encounter Care Teams Lacer And Tier Relationship Specialty Start Date End Date Elsewhere, Pcp PCP - General Family Medicine 06/20/19 Dr Miguel A Jeffries [address] [place] [phone] Laboratory Medicine 12/31/[address] [facility] Laboratory Medicine 08/06/23 Dr. Jesus Jeffries MD External Primary Care Physician 12/21/22 documented as of this encounter
--- OUTSIDE RECORDS SUMMARY | 2023-11-11 21:04 | XMS_ITS | Encounter Summary ---
Author Organization [facility] Address [address] [place] [address] Care Team Providers Care Coal Trammer Name Role Phone Elsewhere, Pcp Primary Care Provider Unavailabl e Encounter Details Date Type Department Care Team (Late st Contact Info) Description 08/01/2023 Orders Only [facility] [place], [place] [address] [place] [address] External, Ordering ProviderEdis Social History Tobacco Use [...] often do you attend chur ch or voodoo services? More than 4 times per year 07/12/2022 Do you belong to any clubs o r organizations such as yarsanism groups, unions, fraternal or athletic groups, or [...] Answer Date Recorded PHQ-2 Score 1 05/04/2019 [facility] - Occupational [...] your living situation today? I have a [facility] place to live 10/01/2022 Education Answer Date Recorded What is the highest level of school you have completed or the highest degree you have received? Bachelor's degree (e.g., BA, AB, BS) 01/11/2019 Sex and Gender Information Value Date Recorded Sex Assigned at Male 05/07/2017 7:[address] CROSSING GUARD Gender Identity Male 05/07/2017 7:[address] CROSSING GUARD Sexual Orientation Straight 05/07/2017 7: [address] CROSSING GUARD documented as of this encounter Plan of Treatment Upcoming Encounters Date Type Department Care Team (Late st Contact Info) Description 11/19/2023 2:00 PM CDT Procedure visit Department of Dermatology in [place], [place] [address] [place] [address] Caleb Vasquez M.D. [address] [place] [phone] 12/06/2023 7:30 AM CDT Ancillary Procedure Department of Ophthalmology in [place], [place] [address] [place] [phone] Jason Ann M.D. [address] [place] [phone] 12/06/2023 8:00 AM CDT Ancillary Procedure Department of Ophthalmology in [place], [place] [address] [place] [address] Jason Ann M.D. [address] [place] [address] 12/06/2023 8:45 AM CDT Procedure visit Department of Ophthalmology in [place], [place] [address] [place] [address] Jason Ann M.D. [address] [place] [phone] 12/06/2023 9:00 AM CDT Ancillary Procedure Department of Ophthalmology in [place], [place] [address] [place] [phone] Jason Ann M.D. [address] [place] [phone] 12/06/2023 9:30 AM CDT Office Visit Department of Ophthalmology in [place], [place] [address] [place] [address] Jason Ann M.D. [address] [place] [phone] documented as of this encounter Procedures Procedure Name Priority Date/Time Associated Diagnosis Comments EXTM ALBUMIN, RANDOM, U Routine 08/01/2023 8:15 AM CDT EXTP BASIC METABOLIC PANEL, BLOOD Routine 08/01/2023 8:15 AM CDT EXTP COMPLETE BLOOD COUNT, BLOOD Routine 08/01/2023 8:15 AM CDT documented in this encounter Results * (ABNORMAL) EXT Albumin, Random, Urine (08/01/2023 8:15 AM CDT) EXT Creatinine, Urine 21.6 mg/dL SCANNED REPORT EXT Microalbumin-Ra ndom, U <1 gm/dL SCANNED REPORT EXT Albumin/Creatin ine Ratio 40(H) 0 - 30 mg/g SCANNED REPORT 08/01/2023 8:15 AM CDT Narrative SCANNED REPORT - 08/05/2023 11:26 AM CDT Source result document attached to Order Number [id number] ([id number]) dated 08/01/2023. External results verified in Extract by Kristina Buchanan on 08/05/2023 at 09:37 AM. Ordering Provider Lorenza Randhawa LAB URIN E ORDERABLES Performing Organization Address [facility]/ZIP Co de Phone Number SCANNED REPORT * EXT Complete Blood Count, Blood (08/01/2023 8:15 AM CDT) EXT Leukocytes 7.66 4.50 - 11.00 K/uL SCANNED REPORT EXT RBC 5.24 4.30 - 5.90 m/uL SCANNED REPORT EXT Hemoglobin 15.9 13.5 - 17.5 gm/dL SCANNED REPORT EXT Hematocrit 45.8 37.0 - 53.0 % SCANNED REPORT EXT MCV 87 80 - 100 fL SCANNED REPORT EXT Platelet Count 190 140 - 440 K/uL SCANNED REPORT EXT Lymphocytes 1.76 0.90 - 2.90 K/uL SCANNED REPORT EXT Monocytes 0.90 0.00 - 0.90 K/UL SCANNED REPORT EXT Eosinophils 0.17 0.00 - 0.50 K/UL SCANNED REPORT EXT Basophils 0.04 0.00 - 0.30 K/uL SCANNED REPORT EXT RDW 12. 0 11.5 - 15.5 % SCANNED REPORT EXT Neutrophils 4.74 1.7 - 7.0 K/uL SCANNED REPORT 08/01/2023 8:15 AM CDT Narrative SCANNED REPORT - 08/05/2023 11:26 AM CDT Source result document attached to Order Number [id number] ([id number]) dated 08/01/2023. External results verified in Extract by Kristina Buchanan on 08/05/2023 at 09:33 AM. Ordering Provider Lorenza Randhawa LAB BLOO D NON ADD-ON Performing Organization Address City/[facility]/ZIP Co de Phone Number SCANNED REPORT * EXT Basic Metabolic Panel, Blood (08/01/2023 8:15 AM CDT) EXT Sodium 139 135 - 149 mmol/L SCANNED REPORT EXT Potassium 4.3 3.6 - 5.1 mmol/L SCANNED REPORT EXT Chloride 104 96 - 114 mmol/L SCANNED REPORT EXT CO2 29 20 - 32 mmol/L SCANNED REPORT EXT BUN (Blood Urea Nitrogen) 28 7 - 30 mg/dL SCANNED REPORT EXT Creatinine 1.1 0.5 - 1.5 mg/dL SCANNED REPORT EXT Estimated GFR (eGFR) 73 ml/min SCANNED REPORT EXT Calcium, Total 9.3 0.4 - 10.6 mg/dL SCANNED REPORT EXT Glucose 90 60 - 115 mg/dL SCANNED REPORT 08/01/2023 8:15 AM CDT Narrative SCANNED REPORT - 08/05/2023 11:26 AM CDT External results verified in Extract by Kristina Buchanan on 08/05/2023 at 09:33 AM. Ordering Provider External Edis LAB BLOO D NON ADD-ON SCANNED REPORT documented in this encounter Visit Diagnoses Not on filedocumented in this encounter Additional Health Concerns Infection Onset Date Last Indicated Resolved Time Protective Environment 07/31/2022 07/31/2022 Assessment Noted Time PHQ-9 Depression Total Score: 2 05/04/19 20 7:[address] CROSSING GUARD documented as of this encounter Care Teams Coal Trammer Relationship Specialty Start Date End Date Elsewhere, Pcp PCP - General Family Medicine 06/20/19 Dr Miguel A Jeffries [address] [place] [phone] Laboratory Medicine 12/31/22 Dr. Jesus Jeffries MD External Primary Care Physician 12/21/22 documented as of this encounter
--- OUTSIDE RECORDS SUMMARY | 2023-11-11 21:04 | XMS_ITS | Encounter Summary ---
Author Organization [facility] Address [address] [place] [address] Care Team Providers Care Chief I Dispatcher Name Role Phone Elsewhere, Pcp Primary Care Provider Unavailabl e Encounter Details Date Type Department Care Team (Late st Contact Info) Description 08/21/2023 Orders Only [facility] in [place], [place] [address] [place] [address] External, Ordering ProviderEdis Social History Tobacco Use [...] often do you attend chur ch or adventism services? More than 4 times per year [...] Answer Date Recorded PHQ-2 Score 1 05/04/2019 [facility] - Occupational [...] your living situation today? I have a [facility] place to live 10/01/2022 Education Answer Date Recorded What is the highest level of school you have completed or the highest degree you have received? Bachelor's degree (e.g., BA, AB, BS) 01/11/2019 Sex and Gender Information Value Date Recorded Sex Assigned at Male 05/07/2017 7:50 PM LINUX NETWORK ADMINISTRATOR Gender Identity Male 05/07/2017 7:50 PM LINUX NETWORK ADMINISTRATOR Sexual Orientation Straight 05/07/2017 7: 50 PM LINUX NETWORK ADMINISTRATOR documented as of this encounter Plan of Treatment Upcoming Encounters Date Type Department Care Team (Late st Contact Info) Description 11/19/2023 2:00 PM CDT Procedure visit Department of Dermatology in [place], [place] [address] [place] [address] Caleb Vasquez M.D. [address] [place] [phone] 12/06/2023 7:30 AM CDT Ancillary Procedure Department of Ophthalmology in [place], [place] [address] [place] [phone] Jason Ann M.D. [address] [place] [phone] 12/06/2023 8:00 AM CDT Ancillary Procedure Department of Ophthalmology in [place], [place] [address] [place] [address] Jason Ann M.D. [address] [place] [address] 12/06/2023 8:45 AM CDT Procedure visit Department of Ophthalmology in [place], [place] [address] [place] [address] Jason Ann M.D. [address] [place] [phone] 12/06/2023 9:00 AM CDT Ancillary Procedure Department of Ophthalmology in [place], [place] [address] [place] [phone] Jason Ann M.D. [address] [place] [phone] 12/06/2023 9:30 AM CDT Office Visit Department of Ophthalmology in [place], [place] [address] [place] [address] Jason Ann M.D. [address] [place] [phone] documented as of this encounter Procedures Procedure Name Priority Date/Time Associated Diagnosis Comments EXTM ALBUMIN, RANDOM, U Routine 08/21/2023 8:00 AM CDT EXTP BASIC METABOLIC PANEL, BLOOD Routine 08/21/2023 8:00 AM CDT EXTP COMPLETE BLOOD COUNT, BLOOD Routine 08/21/2023 8:00 AM CDT documented in this encounter Results * (ABNORMAL) EXT Albumin, Random, Urine (08/21/2023 8:00 AM CDT) EXT Creatinine, Urine 38.8 mg/dL SCANNED REPORT EXT Microalbumin-R andom, U 4 mg/dL SCANNED REPORT EXT Albumin/Creati nine Ratio 100(H) 0 - 30 MG/G SCANNED REPORT 08/21/2023 8:00 AM CDT Narrative SCANNED REPORT - 08/23/2023 8:05 AM CDT Source result document attached to Order Number [id number] ([id number]) dated 08/21/2023. External results verified in Extract by Juliana Lamb on 08/23/2023 at 07:59 AM. Ordering Provider External Edis LAB URIN E ORDERABLES Performing Organization Address [facility] Co de Phone Number SCANNED REPORT * EXT Complete Blood Count, Blood (08/21/2023 8:00 AM CDT) EXT Leukocytes 6.76 4.50 - 11.00 K/uL [...] Source result document attached to Order Number [id number] ([id number]) dated 08/21/2023. External results verified in Extract by Juliana Lamb on 08/23/2023 at 07:59 AM. Ordering Provider Lorenza Randhawa LAB BLOO D NON ADD-ON Performing Organization Address [facility]/ZIP Co de Phone Number SCANNED REPORT * EXT Basic Metabolic Panel, Blood (08/21/2023 8:00 AM CDT) EXT Sodium 141 135 - 149 mmol/L [...] Total Score: 2 05/04/19 20 7:49 PM LINUX NETWORK ADMINISTRATOR documented as of this encounter Care Teams Chief I Dispatcher Relationship Specialty Start Date End Date Elsewhere, Pcp PCP - General Family Medicine 06/20/19 Dr Miguel A Jeffries [address] [place] [address] Laboratory Medicine 12/31/22 [facility] [place][Note 2] Laboratory Medicine 08/06/23 Dr. Jesus Jeffries MD External Primary Care Physician 12/21/22 documented as of this encounter
--- OUTSIDE RECORDS SUMMARY | 2023-11-11 21:04 | XMS_ITS | Encounter Summary ---
Author Organization [facility] Address [address] [place] [address] Care Team Providers Care Internal Combustion Engine Subassembler Name Role Phone Elsewhere, Pcp Primary Care Provider Unavailabl e Encounter Details Date Type Department Care Team (Late st Contact Info) Description 11/09/2013 Historical Ophthalmology [facility] Jason Ann M.D. [address] [place] [address] Social History Tobacco Use Types Packs/Day Years Used Date Smoking Tobacco: Never Assessed Sex and Gender Information Value Date Recorded Sex Assigned at Male 05/07/2017 7:50 PM ROLLER MILL OPERATOR Gender Identity Male 05/07/2017 7:50 PM ROLLER MILL OPERATOR Sexual Orientation Straight 05/07/2017 7: 50 PM ROLLER MILL OPERATOR documented as of this encounter Progress Notes * Jason Ann M.D. - 11/09/2013 9:29 AM CDT Eye General CHIEF COMPLAINT Follow up central serous chorioretinopathy HISTORY OF PRESENT ILLNESS Patient is a 58-year old male here for follow-up of central serous chorioretinopathy. Vision has remained stable. Denies any flashes of light, floaters, and ocular pain. No new concerns today. STA: Renal transplant in April 2013. Cleared as not having active lupus after that, therefore he is no longer on Plaquenil since September 2013. No steroid use. He is on tacrlimus and valcyte. Denies any visual complaints. IMPRESSION / REPORT / PLAN 09 Nov 2013 OCT: RIGHT: no fluid. LEFT: SRF is resolved. 25 Mar 2013 FA: No leakage RIGHT: Mild leaking inferior macula 25 Mar 2013 OCT: RIGHT: no fluid; LEFT: mild SRF inferior macula which is improved cf 09/2012; choroid is thicker than normal Natalya visual field mild reduction in sensitivity, OU. No significant focal defects or scotomata The following tests have been completed and need interpretation. OCT macula, Autofluorescence Hyperfluorescent area of retina inferior to fovea, left eye, within macula. Normal, right eye OCT shows serous retinal elevation with thickening of photorecptor IS-OS junction #1 central serous chorioretinopathy Resolved. Was secondary to prior corticosteroid use. Would be exacerbated by continued steroid use. #2 systemic lupus No longer on plaqenil since September 2013, secondary to resolution of lupus activity following renal transplant no evidence of retinal toxicity #3 renal failure, s/p transplant in April 2013 Doing well. On Tacrolimus. 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 Resolved on OCT. No evidence of Plaquenil toxicity, and he is no longer on Plaquenil since 09/2013. N eye complaints at this time. Plan: Return PRN if visually symptomatic. Dry eye treatment, as documented above. No longer on Plaquenil, thus does not need continued observation. If he re- starts Plaquenil, he will require continued testing. Recommend avoiding corticosteroids and other LIME SUPERVISOR triggers; Daily Amsler grid Letter to Dr. Meryl O.D. DIAGNOSIS #1 central serous chorioretinopathy #2 systemic lupus #3 renal failure, s/p transplant in April 2013 #4 minimal cataracts #5 Dry eye syndrome, both eyes #6 Meibomian gland dysfunction, both eyes CDM Reports - EYEGEN Id: [id number] Status: Fnl documented in this encounter Plan of Treatment Upcoming Encounters Date Type Department Care Team (Late st Contact Info) Description 11/19/2023 2:00 PM CDT Procedure visit Department of Dermatology in [place], [place] [address] [place] [address] Caleb Vasquez M.D. [address] [place] [phone] 12/06/2023 7:30 AM CDT Ancillary Procedure Department of Ophthalmology in [place], [place] [address] [place] [phone] Jason Ann M.D. [address] [place] [phone] 12/06/2023 8:00 AM CDT Ancillary Procedure Department of Ophthalmology in [place], [place] [address] [place] [phone] Jason Ann M.D. [address] [place] [phone] 12/06/2023 8:45 AM CDT Procedure visit Department of Ophthalmology in [place], [place] [address] [place] [phone] Jason Ann M.D. [address] [place] [phone] 12/06/2023 9:00 AM CDT Ancillary Procedure Department of Ophthalmology in [place], [place] [address] [place] [phone] Jason Ann M.D. [address] [place] [phone] 12/06/2023 9:30 AM CDT Office Visit Department of Ophthalmology in [place], [place] [address] [place] [phone] Jason Ann M.D. [address] [place] [phone] documented as of this encounter Visit Diagnoses Not on filedocumented in this encounter Additional Health Concerns Infection Onset Date Last Indicated Resolved Time COVID19 Pending 10/04/2019 10/04/2019 10/04/2019 1 1:35 PM CDT COVID19 Pending 11/07/2019 11/07/2019 11/07/2019 6 :00 PM CDT COVID19 11/11/2021 11/11/2021 12/01/2021 4:45 AM CDT Protective Environment 07/31/2022 07/31/2022 Assessment Noted Time PHQ-9 Depression Total Score: 0 05/26/19 14 9:07 AM ROLLER MILL OPERATOR documented as of this encounter Care Teams Internal Combustion Engine Subassembler Relationship Specialty Start Date End Date Elsewhere, Pcp PCP - General Family Medicine 06/20/[address] [address] Laboratory Medicine 02/11/20 12/30/[address] [address] Laboratory Medicine 02/11/20 12/30/22 Dr Miguel A Jeffries [address] [place] [phone] Laboratory Medicine 12/31/22 [facility] Laboratory Medicine 08/06/23 Dr. Jesus Jeffries MD External Primary Care Physician 12/21/22 documented as of this encounter
--- OUTSIDE RECORDS SUMMARY | 2023-11-11 21:04 | XMS_ITS | Encounter Summary ---
Author Organization [facility] Address [address] [place] [phone] Care Team Providers Care Pier Worker Name Role Phone Elsewhere, Pcp Primary Care Provider Unavailabl e Reason for Referral * Outpatient (Routine) - Authorized Specialty Diagnoses / Procedures Referred By Contsukh t Referred To Contact Rheumatology Sarika Velazquez M.D., Ph.D. [address] [place] [phone] [facility] Referral ID Status Reason Start Date Expiration Date V isits Requested Visits Authorized [id number] Authorized 08/07/2023 02/05/2025 1 1 * Outpatient (Routine) - Authorized Specialty Diagnoses / Procedures Referred By Contact Referred To Contact Physical Medicine and Rehabilitation Diagnoses Pain Foot Right Sarika Velazquez M.D., Ph.D. [address] [place] [phone] [facility] Referral ID Status Reason Start Date Expiration Date V isits Requested Visits Authorized [id number] Authorized 08/07/2023 02/05/2025 1 1 * MRI/CAT/PET Scan (Routine) - Closed Specialty Diagnoses / Procedures Referred By Contac t Referred To Contact Radiology Diagnoses Pain Foot Right Procedures MR Foot Right without and with IV Contrast Sarika Velazquez M.D., Ph.D. [address] [place] [phone] [facility] Referral ID Status Reason Start Date Expiration Date Visits Re quested Visits Authorized [id number] Closed 08/07/2023 08/06/2024 1 1 Reason for Visit * Outpatient (Routine) - Closed Specialty Diagnoses / Procedures Referred By Raimundo t Referred To Contact Rheumatology Sarika Velazquez M.D., Ph.D. [address] [place] [phone] [facility] Referral ID Status Reason Start Date Expiration Date Visits Re quested Visits Authorized [id number] Closed 07/18/2022 07/17/2025 1 1 Encounter Details Date Type Department Care Team (Latest Contact Info) Description 08/07/2023 8:00 AM CDT Telemedicine Division of Rheumatology in [place], [place] [address] [place] [phone] Sarika Velazquez M.D., Ph.D. [address] [place] [phone] Lupus Nephritis (HCC) (Primary Dx); Pain Foot Right Social History Tobacco Use Types Packs/Day [...] How often do you attend chur or hindu services? More than 4 times per year 07/12/2022 Do you belong to any clubs o r organizations such as hindu groups, unions, fraternal or athletic groups, or [...] Answer Date Recorded PHQ-2 Score 1 05/04/2019 [facility] [place] of Occupat ional Health - Occupational Stress [...] your living situation today? I have a [facility] place to live 10/01/2022 Education Answer Date Recorded What is the highest level of school you have completed or the highest degree you have received? Bachelor's degree (e.g., BA, AB, BS) 01/11/2019 Sex and Gender Information Value Date Recorded Sex Assigned at Male 05/07/2017 7:50 PM MAJOR CASE DETECTIVE Gender Identity Male 05/07/2017 7:50 PM MAJOR CASE DETECTIVE Sexual Orientation Straight 05/07/2017 7: 50 PM MAJOR CASE DETECTIVE documented as of this encounter Progress Notes * Sarika Velazquez M.D., Ph.D. - 08/07/2023 8:00 AM CDT SUBJECTIVE CHIEF COMPLAINT/REASON FOR VISIT Follow up lupus. HISTORY OF PRESENT ILLNESS I am seeing Mr. Candy ram via video visit. I see him annually, last saw him July 18, 2022. He has a history of lupus manifesting as joint pain, rash, fatigue, pleurisy, renal involvement. 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 His serologies in the past have included positiveANA and elevated double-stranded DNA. He is maintained on Prograf and CellCept as managed by the Transplant Team here. He has a history of gout for which he is on allopurinol. He uses colchicine during flares. He has a history of chorioretinopathy, and he should never use oral or even injected steroids so these have to be avoided for him. When I saw him last, he was doing well. He was having some knee pain, had an MRI that showed tendinosis without synovitis, and it improved with injection and conservative treatment. His main complaint for me right now is that of foot and ankle pain especially in his right foot across the toes and even in the Achilles. He has clicking in his toes. It is worse in the morning when he first steps on it. It takes him several minutes to really get going. No associated swelling. Interestingly, he alsotells me he has been seeing a chiropractor 2-3 times a week and this seems to have subjectively improved his sense of circulation in his legs and feet because he does have some numbness in some of his toes. Other symptoms include a dry cough for which he had a chest x-ray when he was here in person, and it was negative. He does endorse having quite a bit of tree-related allergies which have really been kicked up recently. Otherwise, systems review for lupus including mucositis, pleurisy, pericarditis, interval history of DVT, PE, seizures, stroke, cardiac issues, hepatic or renal dysfunction is negative. His labs from June and July showed normal CBC with differential, normal renal function, normal double-stranded DNA, normal complements. His CRP was slightly elevated at the time at 8. ASSESSMENT / PLAN #1 Lupus #2 Foot pain, right worse than left Outside of the joints, it sounds like his lupus is overall very stable without clear evidence of flare. It is hard for me to discern if his foot pain is more mechanical from tendinopathy, osteoarthritis versus if there is an overlying inflammatory component. Unfortunately, even if inflammatory we will not be able to use any sort of steroid injection per his report, so we would need to look at conservative treatment if it is more mechanical in nature. To that end, we have ordered an MRI of the right foot and ankle with and without contrast to better delineate the problem and we have requested a referral with [facility] in [facility] to see if they might be able to help with any physical therapy, orthosis, or even nonsteroid-related pain relieving modalities for his foot pain. If it is more inflammatory in nature, we will certainly discuss with him potential changes to his lupus regimen which could potentially include the addition of Benlysta. We will await the results of the MRI, which he would like to pursue here (he has moved closer to the clinic, is currently residing in [facility] [place]) and is willing to come back here for those visits. Orders have been placed. We have alsoplaced orders for his annual return with us. Sarika Velazquez M.D., Ph.D. CT CT Job ID: [id number]/ear documented in this encounter Plan of Treatment Upcoming Encounters Date Type Department Care Team (Late st Contact Info) Description 11/19/2023 2:00 PM CDT Procedure visit Department of Dermatology in [address] [phone] Caleb Vasquez M.D. [address] [place] [phone] 12/06/2023 7:30 AM CDT Ancillary Procedure Department of Ophthalmology in [address] [phone] Jason Ann M.D. [address] [place] [phone] 12/06/2023 8:00 AM CDT Ancillary Procedure Department of Ophthalmology in [address] [phone] Jason Ann M.D. [address] [place] [phone] 12/06/2023 8:45 AM CDT Procedure visit Department of Ophthalmology in [place], [place] [address] [place] [address] Jason Ann M.D. [address] [place] [phone] 12/06/2023 9:00 AM CDT Ancillary Procedure Department of Ophthalmology in [place], [place] [address] [place] [phone] Jason Ann M.D. [address] [place] [phone] 12/06/2023 9:30 AM CDT Office Visit Department of Ophthalmology in [place], [place] [address] [place] [phone] Jason Ann M.D. [address] [place] [phone] Scheduled Orders Name Type Priority Associated Diagnoses Orde r Schedule CBC with Differential, Blood Lab Routine Pain Foot Right Lupus Nephritis (HCC) Expected: 08/06/2024 (Approximate), Expires: 11/05/2024 Sedimentation Rate Lab Routine Pain Foot Right Lupus Nephritis (HCC) Expected: 08/06/2024 (Approximate), Expires: 11/05/2024 CRP (C-Reactive Protein) Lab Routine Pain Foot Right Lupus Nephritis (HCC) Expected: 08/06/2024 (Approximate), Expires: 11/05/2024 Creatinine with Estimated GFR Lab Routine Pain Foot Right Lupus Nephritis (HCC) Expected: 08/06/2024 (Approximate), Expires: 11/05/2024 AST (Aspartate Aminotransferase) Lab Routine Pain Foot Right Lupus Nephritis (HCC) Expected: 08/06/2024 (Approximate), Expires: 11/05/2024 Complement C3 Lab Routine Pain Foot Right Lupus Nephritis (HCC) Expected: 08/06/2024 (Approximate), Expires: 11/05/2024 Complement C4 Lab Routine Pain Foot Right Lupus Nephritis (HCC) Expected: 08/06/2024 (Approximate), Expires: 11/05/2024 Urinalysis, with Microscopic: Urine, Midstream Lab Routine Pain Foot Right Lupus Nephritis (HCC) Expected: 08/06/2024 (Approximate), Expires: 11/05/2024 Protein/Creatinine Ratio, Random, Urine Lab Routine Pain Foot Right Lupus Nephritis (HCC) Expected: 08/06/2024 (Approximate), Expires: 11/05/2024 Double-Stranded DNA (dsDNA) Antibodies, IgG Lab Routine Pain Foot Right Lupus Nephritis (HCC) Expected: 08/06/2024, Expires: 11/05/2024 Scheduled Referrals Name Type Priority Associated Diagnoses Order Schedule Physical Medicine and Rehabilitation - General consult (clinic) Outpatient Referral Routine Pain Foot Right Expected: 08/07/2023, Expires: 11/05/2024 Rheumatology office visit (clinic) Outpatient Referral Routine Expected: 08/06/2024, Expires: 11/05/2024 documented as of this encounter Results * MR Foot Right without and with [...] Sarika Velazquez M.D., Ph.D. IMG MRI PROCEDURES documented in this encounter Visit Diagnoses Diagnosis Lupus Nephritis (HCC)- Primary Pain Foot Right Pain Foot Right documented in this encounter Additional Health Concerns Infection Onset Date Last Indicated Resolved Time Protective Environment 07/31/2022 07/31/2022 Assessment Noted Time PHQ-9 Depression Total Score: 2 05/04/19 20 7:49 PM MAJOR CASE DETECTIVE documented as of this encounter Care Teams Pier Worker Relationship Specialty Start Date End Date Elsewhere, Pcp PCP - General Family Medicine 06/20/19 Dr Miguel A Jeffries [address] [place] [address] Laboratory Medicine 12/31/22 [facility] Laboratory Medicine 08/06/23 Dr. Jesus Jeffries MD External Primary Care Physician 12/21/22 documented as of this encounter
--- OUTSIDE RECORDS SUMMARY | 2023-11-11 21:04 | XMS_ITS | Encounter Summary ---
Author Organization [facility] Address [address] [place] [address] Care Team Providers Care Tool Keeper Name Role Phone Elsewhere, Pcp Primary Care Provider Unavailabl e Encounter Details Date Type Department Care Team (Late st Contact Info) Description 08/01/2023 [facility] [place], [place] [address] [place] [address] External, Ordering ProviderEdsi Social History Tobacco Use Types Packs/Day Years [...] often do you attend chur ch or oriental orthodox services? More than 4 times per year 07/12/2022 Do you belong to any clubs o r organizations such as restoration groups, unions, fraternal or athletic groups, or [...] Answer Date Recorded PHQ-2 Score 1 05/04/2019 [facility] of Occupat ional Health - Occupational [...] your living situation today? I have a [facility] place to live 10/01/2022 Education Answer Date Recorded What is the highest level of school you have completed or the highest degree you have received? Bachelor's degree (e.g., BA, AB, BS) 01/11/2019 Sex and Gender Information Value Date Recorded Sex Assigned at Male 05/07/2017 7:50 PM MACHINE FORMER Gender Identity Male 05/07/2017 7:50 PM MACHINE FORMER Sexual Orientation Straight 05/07/2017 7: 50 PM MACHINE FORMER documented as of this encounter Plan of Treatment Upcoming Encounters Date Type Department Care Team (Late st Contact Info) Description 11/19/2023 2:00 PM CDT Procedure visit Department of Dermatology in [place], [place] [address] [place] [address] Caleb Vasquez M.D. [address] [place] [phone] 12/06/2023 7:30 AM CDT Ancillary Procedure Department of Ophthalmology in [place], [place] [address] [place] [phone] Jason Ann M.D. [address] [place] [phone] 12/06/2023 8:00 AM CDT Ancillary Procedure Department of Ophthalmology in [place], [place] [address] [place] [address] Jason Ann M.D. [address] [place] [address] 12/06/2023 8:45 AM CDT Procedure visit Department of Ophthalmology in [place], [place] [address] [place] [address] Jason Ann M.D. [address] [place] [phone] 12/06/2023 9:00 AM CDT Ancillary Procedure Department of Ophthalmology in [place], [place] [address] [place] [phone] Jason Ann M.D. [address] [place] [phone] 12/06/2023 9:30 AM CDT Office Visit Department of Ophthalmology in [place], [place] [address] [place] [phone] Jason Ann M.D. [address] [place] [phone] documented as of this encounter Procedures Procedure Name Priority Date/Time Associated Diagnosis Comments EXTM TACROLIMUS LEVEL, B Routine 08/01/2023 8:15 AM CDT documented in this encounter Results * EXT Tacrolimus, B (08/01/2023 8:15 AM CDT) EXT Tacrolimus 7.4 ng/mL SCANNED REPORT 08/01/2023 8:15 AM CDT Narrative SCANNED REPORT - 08/09/2023 10:40 AM CDT External results verified in Extract by Aliya Grant on 08/09/2023 at 10:38 AM. Ordering Provider External [facility] BLOO D NON ADD-ON SCANNED REPORT documented in this encounter Visit Diagnoses Not on filedocumented in this encounter Additional Health Concerns Infection Onset Date Last Indicated Resolved Time Protective Environment 07/31/2022 07/31/2022 Assessment Noted Time PHQ-9 Depression Total Score: 2 05/04/19 20 7:49 PM MACHINE FORMER documented as of this encounter Care Teams Tool Keeper Relationship Specialty Start Date End Date Elsewhere, Pcp PCP - General Family Medicine 06/20/19 Dr Miguel A Jeffries [address] [place] [phone] Laboratory Medicine 12/31/22 [facility] Laboratory Medicine 08/06/23 Dr. Jesus Jeffries MD External Primary Care Physician 12/21/22 documented as of this encounter
--- OUTSIDE RECORDS SUMMARY | 2023-11-11 21:04 | XMS_ITS | Encounter Summary ---
Author Organization [facility] Address [address] [place] [address] Care Team Providers Care Client Onboarding Analyst Name Role Phone Elsewhere, Pcp Primary Care Provider Unavailabl e Encounter Details Date Type Department Care Team (Latest Contact Info) Description 07/04/2023 Clinical Communication Josep Flores [facility] in [place], [place] [address] [place] [address] Annabel Villanueva APRN, C.N.P., M.S.N. [address] [place] [address] Social History Tobacco Use Types Packs/Day Years [...] often do you attend chur ch or orthodoxy services? More than 4 times per year 07/12/2022 Do you belong to any clubs o r organizations such as zoroastrianism groups, unions, fraternal or athletic groups, or [...] Answer Date Recorded PHQ-2 Score 1 05/04/2019 [facility] of Occupat ional Health - Occupational [...] your living situation today? I have a [facility] place to live 10/01/2022 Education Answer Date Recorded What is the highest level of school you have completed or the highest degree you have received? Bachelor's degree (e.g., BA, AB, BS) 01/11/2019 Sex and Gender Information Value Date Recorded Sex Assigned at Male 05/07/2017 7:50 PM WAX SPECIALIST Gender Identity Male 05/07/2017 7:50 PM WAX SPECIALIST Sexual Orientation Straight 05/07/2017 7: 50 PM WAX SPECIALIST documented as of this encounter Plan of Treatment Upcoming Encounters Date Type Department Care Team (Late st Contact Info) Description 11/19/2023 2:00 PM CDT Procedure visit Department of Dermatology in [place], [place] [address] [place] [address] Caleb Vasquez M.D. [address] [place] [phone] 12/06/2023 7:30 AM CDT Ancillary Procedure Department of Ophthalmology in [place], [place] [address] [place] [address] Jason Ann M.D. [address] [place] [phone] 12/06/2023 8:00 AM CDT Ancillary Procedure Department of Ophthalmology in [place], [place] [address] [place] [phone] Jason Ann M.D. [address] [place] [phone] 12/06/2023 8:45 AM CDT Procedure visit Department of Ophthalmology in [place], [place] [address] [place] [phone] Jason Ann M.D. [address] [place] [phone] 12/06/2023 9:00 AM CDT Ancillary Procedure Department of Ophthalmology in [place], [place] [address] [place] [phone] Jason Ann M.D. [address] [place] [phone] 12/06/2023 9:30 AM CDT Office Visit Department of Ophthalmology in [place], [place] [address] [place] [phone] Jason Ann M.D. [address] [place] [phone] documented as of this encounter Visit Diagnoses Not on filedocumented in this encounter Additional Health Concerns Infection Onset Date Last Indicated Resolved Time Protective Environment 07/31/2022 07/31/2022 Assessment Noted Time PHQ-9 Depression Total Score: 2 05/04/19 20 7:49 PM WAX SPECIALIST documented as of this encounter Care Teams Client Onboarding Analyst Relationship Specialty Start Date End Date Elsewhere, Pcp PCP - General Family Medicine 06/20/19 Dr Miguel A Jeffries [address] [place] [address] Laboratory Medicine 12/31/22 [facility] Laboratory Medicine 08/06/23 Dr. Jesus Jeffries MD External Primary Care Physician 12/21/22 documented as of this encounter
--- OUTSIDE RECORDS SUMMARY | 2023-11-11 21:04 | XMS_ITS | Encounter Summary ---
Author Organization [facility] Address [address] [place] [address] Care Team Providers Care Dish Machine Operator Name Role Phone Elsewhere, Pcp Primary Care Provider Unavailabl e Encounter Details Date Type Department Care Team (Late st Contact Info) Description 03/25/2013 Historical Ophthalmology [facility] Jason Ann M.D. [address] [place] [address] Social History Tobacco Use Types Packs/Day Years Used Date Smoking Tobacco: Never Assessed Sex and Gender Information Value Date Recorded Sex Assigned at Male 05/07/2017 7:50 PM PARACHUTE OFFICER Gender Identity Male 05/07/2017 7:50 PM PARACHUTE OFFICER Sexual Orientation Straight 05/07/2017 7: 50 PM PARACHUTE OFFICER documented as of this encounter Progress Notes * Jason Ann M.D. - 03/25/2013 1:00 PM CST Eye General CHIEF COMPLAINT Follow-up central serous chorioretinopathy HISTORY OF PRESENT ILLNESS Patient is a 58-year old male here for follow-up of central serous chorioretinopathy. No new visionconcerns. Denies flashes and floaters. Pain; patient uncertain which eye(s) involved; x 2 months; intermittently, lasts only a small time; symptoms reported at level of 3/10. Has been on Plaquenil barbara roximately 15 years. IMPRESSION / REPORT / PLAN 25 Mar 2013 FA: No leakage RIGHT: [...] be associated with progressive vision loss, centrally. 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 No evidence of Plaquenil toxicity on 200mg po qd however it is difficult to monitor this in the setting of a superimposed central serous chorioretinopathy. Overall, vision has been stable. Plan: Could continue plaquenil at 200 mg daily (to avoid steroids x 15 years) (height 5'8) but with knowledge that toxicity would be somewhat difficult to detect given the concomitant RESTAURANT FRONT MANAGER. recommend avoiding corticosteroids and other RESTAURANT FRONT MANAGER triggers; Daily Amsler FU 6 mos with OCT OU, sooner with any changes Letter to Dr. Meryl O.D. DIAGNOSIS #1 central serous chorioretinopathy #2 systemic lupus #3 renal failure #4 minimal cataracts CDM Reports - [facility] Id: [id number] Status: Fnl documented in this encounter Plan of Treatment Upcoming Encounters Date Type Department Care Team (Late st Contact Info) Description 11/19/2023 2:00 PM CDT Procedure visit Department of Dermatology in [place], [place] [address] [place] [address] Caleb Vasquez M.D. [address] [place] [phone] 12/06/2023 7:30 AM CDT Ancillary Procedure Department of Ophthalmology in [place], [place] [address] [place] [address] Jason Ann M.D. [address] [place] [phone] 12/06/2023 8:00 AM CDT Ancillary Procedure Department of Ophthalmology in [place], [place] [address] [place] [phone] Jason Ann M.D. [address] [place] [phone] 12/06/2023 8:45 AM CDT Procedure visit Department of Ophthalmology in [place], [place] [address] [place] [phone] Jason Ann M.D. [address] [place] [phone] 12/06/2023 9:00 AM CDT Ancillary Procedure Department of Ophthalmology in [place], [place] [address] [place] [phone] Jason Ann M.D. [address] [place] [phone] 12/06/2023 9:30 AM CDT Office Visit Department of Ophthalmology in [place], [place] [address] [place] [phone] Jason Ann M.D. [address] [place] [phone] documented as of this encounter Visit Diagnoses [...] documented as of this encounter Care Teams Dish Machine Operator Relationship Specialty Start Date End Date Elsewhere, Pcp PCP - General Family Medicine 06/20/[address] [address] Laboratory Medicine 02/11/20 12/30/[address] [address] Laboratory Medicine 02/11/20 12/30/22 Dr Miguel A Jeffries [address] [place] [address] Laboratory Medicine 12/31/22 [facility] Laboratory Medicine 08/06/23 Dr. Jesus Jeffries MD External Primary Care Physician 12/21/22 documented as of this encounter
--- OUTSIDE RECORDS SUMMARY | 2023-11-11 21:04 | XMS_ITS ---
Author Organization [facility] Address [address] [place] [address] Care Team Providers Care Intermediate Project Manager Name Role Phone Elsewhere, Pcp Primary Care Provider Unavailabl e Transplant Episode Kidney Recipient [facility] ([place], [place]) - [facility] Organ Received: Right Kidney Transplanted on 05/12/2013 Marked as Active Follow-up on 05/12/2013 Kidney CoordinatorTXP POST KIDNEY NURSE TEAM 2 [facility] Phone: N/A Fax: N/A Email: N/A [place] Organ Diagnosis Organ Primary Contributory Kidney Systemic Lupus Erythematosus Infection History Noted Survival Infection Treatment Organism Resolved 04/04/2019 5 years 10 months Cellulitis Arm Left 04/20/2019 Donor Information Organ ABO Source Meets Risk Criteria HLA Match Mismatches Cross Match Right Kidney Transplanted O Pos Live A: B: DR: T cell (Positive) B cell (Negative) Right Kidney Donor Serology Results Anti-HBcAb No results on file HBsAg HBsAg: Negative HBsAb HBsAb: Negative HBsAb Sergo: <5.00 HBV DNA No results on file Anti-HCV HCV Ab: Negative HCV RNA No results on file HAV HAV - Total Antibody: Negative Anti-HIV I/II No results on file HIV RNA No results on file Anti-HTLV I/II No results on file Coccidioides No results on file Anti-CMV CMV IgG: Positive CMV IgM: Negative Quantiferon TB No results on file EBV Total No results on file EBV IgG EBV VCA IgG: Positive EBV IgM EBV VCA IgM: Negative EBNA EBV DNA: Positive Measles No results on file Mumps No results on file Rubella No results on file Varicella Zoster Varicella Zoster IgM: Negative Varicella IgG Antibody Index: Positive HSV 1 HSV 1 IgG: Positive HSV 1 IgM: Reactive HSV 2 HSV 2 IgG: Negative Toxoplasm a No results on file Cryptococcus Ag No results on file Histoplasma No results on file Strongyloides No results on file Schistoso ma No results on file Trypanosoma cruzi No results on file RPR/VDRL No results on file Syphilis No results on file RSV No results on file SARS CoV-2 No results on file HBV SELVIN No results on file HCV SELVIN No results on file Care Team Name Role Phone Fax Email TXP POST KIDNEY NURSE TEAM 2 [facility] Kidney Coordinator N/A N/A N/A Munira Pantoja M.D. Transplant External Managing College Associate N/A N/A N/A Events Post-Transplant Pre-Transplant Admitted: 05/12/2013 Referred: 07/13/2011 Transplanted: 05/12/2013 Evaluation began: 2 Discharged: 05/15/2013 Center waitlisted: 2
--- OUTSIDE RECORDS SUMMARY | 2023-11-11 21:04 | XMS_ITS | Encounter Summary ---
Author Organization [facility] Address [address] [place] [address] Care Team Providers Care Ball Assembler Name Role Phone Elsewhere, Pcp Primary Care Provider Unavailabl e Encounter Details Date Type Department Care Team (Late st Contact Info) Description 08/01/2023 [facility] [place], [place] [address] [place] [address] External, Ordering ProviderEdis Social History Tobacco Use [...] often do you attend chur ch or restorationism services? More than 4 times per year [...] Answer Date Recorded PHQ-2 Score 1 05/04/2019 [facility] - Occupational [...] your living situation today? I have a [facility] place to live 10/01/2022 Education Answer Date Recorded What is the highest level of school you have completed or the highest degree you have received? Bachelor's degree (e.g., BA, AB, BS) 01/11/2019 Sex and Gender Information Value Date Recorded Sex Assigned at Male 05/07/2017 7:50 PM NET TECHNICAL ARCHITECT Gender Identity Male 05/07/2017 7:50 PM NET TECHNICAL ARCHITECT Sexual Orientation Straight 05/07/2017 7: 50 PM NET TECHNICAL ARCHITECT documented as of this encounter Plan of Treatment Upcoming Encounters Date Type Department Care Team (Late st Contact Info) Description 11/19/2023 2:00 PM CDT Procedure visit Department of Dermatology in [place], [place] [address] [place] [address] Caleb Vasquez M.D. [address] [place] [phone] 12/06/2023 7:30 AM CDT Ancillary Procedure Department of Ophthalmology in [place], [place] [address] [place] [phone] Jason Ann M.D. [address] [place] [phone] 12/06/2023 8:00 AM CDT Ancillary Procedure Department of Ophthalmology in [place], [place] [address] [place] [address] Jason Ann M.D. [address] [place] [phone] 12/06/2023 8:45 AM CDT Procedure visit Department of Ophthalmology in [place], [place] [address] [place] [phone] Jason Ann M.D. [address] [place] [phone] 12/06/2023 9:00 AM CDT Ancillary Procedure Department of Ophthalmology in [place], [place] [address] [place] [phone] Jason Ann M.D. [address] [place] [phone] 12/06/2023 9:30 AM CDT Office Visit Department of Ophthalmology in [place], [place] [address] [place] [phone] Jason Ann M.D. [address] [place] [phone] Scheduled Orders Name Type Priority Associated Diagnoses Orde r Schedule EXT Basic Metabolic Panel, Blood Lab Routine Ordered: 024 documented as of this encounter Visit Diagnoses Not on filedocumented in this encounter Additional Health Concerns Infection Onset Date Last Indicated Resolved Time Protective Environment 07/31/2022 07/31/2022 Assessment Noted Time PHQ-9 Depression Total Score: 2 05/04/19 20 7:49 PM NET TECHNICAL ARCHITECT documented as of this encounter Care Teams Ball Assembler Relationship Specialty Start Date End Date Elsewhere, Pcp PCP - General Family Medicine 06/20/19 Dr Miguel A Jeffries [address] [place] [phone] Laboratory Medicine 12/31/22 Dr. Jesus Jeffries MD External Primary Care Physician 12/21/22 documented as of this encounter
--- OUTSIDE RECORDS SUMMARY | 2023-11-11 21:04 | XMS_ITS | Encounter Summary ---
Author Organization [facility] Address [address] [place] [address] Care Team Providers Care Physician Internist Name Role Phone Elsewhere, Pcp Primary Care Provider Unavailabl e Encounter Details Date Type Department Care Team (Late st Contact Info) Description 02/15/2016 Historical Ophthalmology [facility] Marty Mishra M.D., Ph.D. [address] [place] [address] Social History Tobacco Use Types Packs/Day Years Used Date Smoking Tobacco: Never Assessed Sex and Gender Information Value Date Recorded Sex Assigned at Male 05/07/2017 7:50 PM FIXTURE REPAIRER FABRICATOR Gender Identity Male 05/07/2017 7:50 PM FIXTURE REPAIRER FABRICATOR Sexual Orientation Straight 05/07/2017 7: 50 PM FIXTURE REPAIRER FABRICATOR documented as of this encounter Progress Notes * Marty Mishra M.D., Ph.D. - 02/15/2016 8:55 AM CDT Eye General CHIEF COMPLAINT block in visual field HISTORY OF PRESENT ILLNESS Loss of side vision; left eye; x several weeks; intermittently; symptoms occur primarily when reading. Pain/pressure; around both temples & brow; x several weeks; constantly. Notes photosensitivity, ongoing for several weeks, particularly in sunlight. Denies any flashing lights or floaters. 60yo male referred by Dr. Sheth for a temporal visual field defect in the left eye. He noticed a black vertical line in his temporal vision in the left eye in early December. He was seen by Dr. Sheth on 12/27/15. 24-2 HVF showed mild central depression in both eyes. 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 No change since onset. It is not there all the time. It is not present today. He thinks it is just in the left eye, but has not tried closing the left eye to see if it is still present. He does notice it with both eyes open. He notices this while reading as a vertical line following the words he isreading (3-4 words behind and is a vertical dark line spanning about 3 sentences). When it is present, it tends to be there all day. He denies photopsias. He has a hx of central serous retinopathy and was previously seen by Dr. Ann, last October 2013. He was initially diagnosed with SLE in 1971 at [place]. His symptoms included generalized pain including joint pain with possible swelling, fatigue, a rash on his cheeks that may have been photosensitive and there may have also been pleurisy. He had renal disease at the time of his presentation with biopsies showing membranoproliferative disease. He initially treated with prednisone. He was started on Plaquenil in 1999, which was decreased to 200mg daily in 2006 and was stopped on August 2013. He received a living related renal transplant on May 12, 2013. He is on Prograf and CellCept and will remain on that long-term for his transplant. 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 Also CAD, HTN, and hyperlipidemia. 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 No active central serous retinopathy. #2 systemic lupus No longer on plaqenil since September 2013, secondary to resolution of lupus activity following renal transplant There were faint paracentral ring scotomas so he likely has a hint of Plaquenil toxicity. He has been off since 2013 so I do not anticipate this to worsen. In addition, the faint paracentral scotomasdid not match his visual complaints so I think this is old news. #3 renal failure, s/p transplant in April 2013 Doing well. On Tacrolimus. 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 It was not present today during the testing or exam, which makes it difficult to characterize. He will cover one eye and see if it is a binocular or monocular process and also try to document ifthere is any right sided visual field loss. He will call me with an update. Addendum on 02/16/16: He reports seeing the line today. Per patient, It is about 3/4 of a page to the left of my focal point. On a print page, it appears to be a vertical blurry line about 3-4 lines of print in length and 2-3 lines below the line I am reading. I could not see it when I closed my left eye, but I could see it with my right eye closed. Because it is truly monocular only involving the left eye, we do not have to worry about a corticalprocess. The location sounds like it is close to the physiologic blind spot, but it is vertical in nature. I recommended getting Spectralis radial cuts around the left optic nerve to see if there could be DRIVER/MERCHANDISER or photoreceptor changes in that area, Optovue OCT angiography, OCT of RNFL/GCL, and manual [place]. We will get these on 03/16 when he is town and I will call with the results. Addendum on 03/21/16: Manual visual field: full OU Cirrus OCT: normal retinal nerve fiber layer thickness OU Optovue OCT angiography: normal peripapillary capillary density Spectralis OCT of the nerve: normal OU without evidence of photoreceptor disruption Overall, there were no abnormalities noted in the left eye to explain his visual symptoms, including fine line cuts with OCT and OCT angiography. It is too small to check with a full field ERG and too peripheral to examine with mfERG. I think we can safely observe. If it worsens, he was told to call. 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 [address] [place] [phone] 12/06/2023 7:30 AM CDT Ancillary Procedure Department of Ophthalmology in [place], [place] [address] [place] [phone] Jason Ann M.D. [address] [place] [phone] 12/06/2023 8:00 AM CDT Ancillary Procedure Department of Ophthalmology in [place], [place] [address] [place] [phone] Jason Ann M.D. [address] [place] [phone] 12/06/2023 8:45 AM CDT Procedure visit Department of Ophthalmology in [place], [place] [address] [place] [phone] Jason Ann M.D. [address] [place] [phone] 12/06/2023 9:00 AM CDT Ancillary Procedure Department of Ophthalmology in [place], [place] [address] [place] [phone] Jason Ann M.D. [address] [place] [phone] 12/06/2023 9:30 AM CDT Office Visit Department of Ophthalmology in [place], [place] [address] [place] [phone] Jason Ann M.D. [address] [place] [phone] documented as of this encounter Visit Diagnoses [...] Total Score: 2 05/05/19 15 8:27 AM FIXTURE REPAIRER FABRICATOR documented as of this encounter Care Teams Physician Internist Relationship Specialty Start Date End Date Elsewhere, Pcp PCP - General Family Medicine 06/20/[address] [address] Laboratory Medicine 02/11/20 12/30/[address] [address] Laboratory Medicine 02/11/20 12/30/22 Dr Miguel A Jeffries [address] [place] [address] Laboratory Medicine 12/31/22 [facility] Laboratory Medicine 08/06/23 Dr. Jesus Jeffries MD External Primary Care Physician 12/21/22 documented as of this encounter
--- OUTSIDE RECORDS SUMMARY | 2023-11-11 21:04 | XMS_ITS | Encounter Summary ---
Author Organization [facility] Address [address] [place] [address] Care Team Providers Care Commodity Loan Clerk Name Role Phone Elsewhere, Pcp Primary Care Provider Unavailabl e Reason for Referral * MRI/CAT/PET Scan (Routine) - Closed Specialty Diagnoses / Procedures Referred By Raimundo cartagena Referred To Contact Radiology Diagnoses Pain Foot Right Procedures MR Foot Right without and with IV Contrast Sarika Velazquez M.D., Ph.D. [address] [place] [phone] [facility] Referral ID Status Reason Start Date Expiration Date Visits Re quested Visits Authorized [id number] Closed 08/07/2023 08/06/2024 1 1 Reason for Visit * MRI/CAT/PET Scan (Routine) - Closed Specialty Diagnoses / Procedures Referred By Contac t Referred To Contact Radiology Diagnoses Pain Foot Right Procedures MR Foot Right without and with IV Contrast Sarika Velazquez M.D., Ph.D. [address] [place] [phone] [facility] Referral ID Status Reason Start Date Expiration Date Visits Re quested Visits Authorized [id number] Closed 08/07/2023 08/06/2024 1 1 Encounter Details Date Type Department Care Team (Latest Contact Info) Description 08/13/2023 5:18 PM CDT - 08/13/2023 11:59 PM CDT Hospital Encounter Department of Radiology, [facility], in [place], [place] [address] [place] [address] Sarika Velazquez M.D., Ph.D. [address] [place] [address] Pain Foot Right Discharge Disposition: Home or Self Care Social History Tobacco Use Types Packs/Day Years [...] How often do you attend chur or yazdanism services? More than 4 times per year 07/12/2022 Do you belong to any clubs o r organizations such as buddhism groups, unions, fraternal or athletic groups, or [...] Answer Date Recorded PHQ-2 Score 1 05/04/2019 [facility] - Occupational Stress [...] your living situation today? I have a [facility] place to live 10/01/2022 Education Answer Date Recorded What is the highest level of school you have completed or the highest degree you have received? Bachelor's degree (e.g., BA, AB, BS) 01/11/2019 Sex and Gender Information Value Date Recorded Sex Assigned at Male 05/07/2017 7:50 PM CUSTOMS INSPECTOR Gender Identity Male 05/07/2017 7:50 PM CUSTOMS INSPECTOR Sexual Orientation Straight 05/07/2017 7: 50 PM CUSTOMS INSPECTOR documented as of this encounter Medications at Time of Discharge Medication Sig Dispensed Refills Start Date End Date acetaminophen (Tylenol Extra Strength) 500 mg tablet Take 1-2 tablets (500-1,000 mg total) by mouth every 6 (six) hours as needed for pain. 02/13/2019 allopurinoL (ZYLOPRIM) 100 mg tablet Take 100 mg by mouth 2 (two) times a day. 05/27/2020 amLODIPine (NORVASC) 5 mg tabletIndications:Im munodeficiency (HCC),Transplant Renal (HCC),High Risk Medication Take 1 tablet (5 mg total) by mouth daily for 5 days. 5 tablet 07/18/[address] tabletIndications:Im munodeficiency (HCC),Transplant Renal (HCC),High Risk Medication Take 1 tablet (81 mg total) by mouth daily for 5 days. 120 tablet 07/18/2022 calcium carbonate-vitamin D3 1,500 mg (600 mg calcium)-10 mcg (400 Unit) per tablet Take 1 tablet by mouth daily with breakfast. 12/17/2019 Colcrys 0.6 mg tablet Take 1 tablet at onset of gout, then 1 tablet 2 hours later PRN only 10 tablet 1 10/07/2019 diclofenac sodium (VOLTAREN) 1 % gel APPLY 2 GRAMS TOPICALLY TO AFFECTED AREA FOUR TIMES A DAY. 100 g 3 04/05/2022 famotidine (PEPCID) 20 mg tablet Take 20 mg by mouth as needed for indigestion or heartburn. 08/24/2021 ferrous sulfate 325 mg (65 mg iron) tablet Take 1 tablet (65 mg of iron total) by mouth every other day. 06/23/2021 fluticasone propionate (FLONASE) 50 mcg/actuation nasal spray Administer 1 spray into each nostril as needed for allergies. 02/13/2019 furosemide (LASIX) 20 mg tabletIndications:Im munodeficiency (HCC),Transplant Renal (HCC),High Risk Medication Take 1 tablet (20 mg total) by mouth daily for 5 days. 5 tablet 07/18/2022 ketoconazole (NIZORAL) 2 % cream Apply 1 Application topically 2 (two) times a day. Apply to the affected area twice daily for up to two weeks, thereafter may use as needed three times weekly. 30 g 2 07/16/2023 ketoconazole (NIZORAL) 2 % shampoo Apply 1 Application topically 2 (two) times a week. Apply to damp skin, lather, leave on 3-5 minutes, and then rinse. May use initially with every shower, then 1-2 times a week for maintenance. 120 mL 2 07/18/2023 magnesium oxide (MAG-OX) 400 mg (241.3 mg magnesium) tablet Take 800 mg by mouth daily. metoprolol tartrate (LOPRESSOR) 50 mg tablet Take 1 tablet (50 mg total) by mouth 2 (two) times a day. 180 tablet 3 01/31/2022 multivitamin tablet Take 1 tablet by mouth daily. nitroglycerin (NITROSTAT) 0.[address] ONE TABLET UNDER THE TONGUE EVERY 10 MINUTES NEEDED FOR CHEST PAIN. 25 tablet 11 03/24/2018 rOPINIRole (REQUIP) 0.5 mg tablet Take 3 tablets (1.5 mg total) by mouth daily. 06/23/2021 rosuvastatin (CRESTOR) 20 mg tabletIndications:Tr ansplant Renal (HCC),High Risk Medication,Immunodef iciency (HCC) Take 1 tablet (20 mg total) by mouth daily for 5 days. 5 tablet 07/16/2023 sildenafil (VIAGRA) 50 mg tablet Take 1 tablet (50 mg total) by mouth daily as needed for erectile dysfunction. 10 tablet 11 09/17/2017 sour smart extract (Tart Smart Extract) 1,000 mg capsule Take by mouth daily. 04/03/2022 tacrolimus (PROGRAF) 1 mg capsuleIndications:T ransplant Renal (HCC),High Risk Medication,Immunodef iciency (HCC) Take 1 capsule (1 mg total) by mouth 2 (two) times a day. 180 capsule 3 07/16/2023 Vascepa 1 gram capsule capsule Take 1 capsule by mouth 2 (two) times a day with meals. albuterol 90 mcg/actuation inhaler Inhale 1-2 puffs every 4 (four) hours as needed. 08/22/2022 09/12/2023 calcipotriene 0.005 %, 5-FU 5 % - lipoderm Apply topically 2 (two) times a day to dorsal hands and forearms for 5-7 days. 30 g 2 07/16/2023 10/25/2023 mycophenolate (CELLCEPT) 250 mg capsuleIndications:T ransplant Renal (HCC),High Risk Medication,Immunodef iciency (HCC) Take 2 capsules (500 mg total) by mouth 2 (two) times a day. Do not break, cut, or open capsules. 120 capsule 11 07/04/2023 08/26/2023 documented as of this encounter Plan of Treatment Upcoming Encounters Date Type Department Care Team (Late st Contact Info) Description 11/19/2023 2:00 PM CDT Procedure visit Department of Dermatology in [place], [place] [address] [place] [phone] Caleb Vasquez M.D. [address] [place] [phone] 12/06/2023 7:30 AM CDT Ancillary Procedure Department of Ophthalmology in [place], [place] [address] [place] [phone] Jason Ann M.D. [address] [place] [phone] 12/06/2023 8:00 AM CDT Ancillary Procedure Department of Ophthalmology in [place], [place] [address] [place] [phone] Jason Ann M.D. [address] [place] [phone] 12/06/2023 8:45 AM CDT Procedure visit Department of Ophthalmology in [place], [place] [address] [place] [address] Jason Ann M.D. [address] [place] [phone] 12/06/2023 9:00 AM CDT Ancillary Procedure Department of Ophthalmology in [place], [place] [address] [place] [phone] Jason Ann M.D. [address] [place] [phone] 12/06/2023 9:30 AM CDT Office Visit Department of Ophthalmology in [place], [place] [address] [place] [address] Jason Ann M.D. [address] [place] [phone] documented as of this encounter Procedures Procedure Name Priority Date/Time Associated Diagnosis Comments MR FOOT RIGHT WITHOUT AND WITH IV CONTRAST RAD - Routine (most inpatients and all outpatients) 08/13/2023 6:27 PM CDT Pain Foot Right documented in this encounter Results * MR Foot Right [...] documented in this encounter Visit Diagnoses Diagnosis Pain Foot Right documented in this encounter Administered Medications Inactive Administered Medications - up to 3 most recent administrations Medication Order MAR Action Action Date Dose Rate Site gadobutrol injection 0.01-30 mL (GADAVIST) 0.01-30 mL, intravenous, Once in imaging, contrast, Starting on Tu08/13/23 at 1726, For 1 dose, Imaging Protocol Orders, Dose per Radiant Medication Guidelines Intrathecal doses greater than 0.25 mL not recommended. Given 08/13/2023 6:28 PM CDT 9 mL documented in this encounter Additional Health Concerns Infection Onset Date Last Indicated Resolved Time Protective Environment 07/31/2022 07/31/2022 Assessment Noted Time PHQ-9 Depression Total Score: 2 05/04/19 20 7:49 PM CUSTOMS INSPECTOR documented as of this encounter Care Teams Commodity Loan Clerk Relationship Specialty Start Date End Date Elsewhere, Pcp PCP - General Family Medicine 06/20/19 Dr Miguel A Jeffries [address] [place] [address] Laboratory Medicine 12/31/[address] [facility] Laboratory Medicine 08/06/23 Dr. Jesus Jeffries MD External Primary Care Physician 12/21/22 documented as of this encounter
--- OUTSIDE RECORDS SUMMARY | 2023-11-11 21:04 | XMS_ITS | Encounter Summary ---
Author Organization [facility] Address [address] [place] [id number] Care Team Providers Care Lithoplate Maker Name Role Phone Elsewhere, Pcp Primary Care Provider Unavailabl e Reason for Referral * Outpatient (Routine) - Closed Specialty Diagnoses / Procedures Referred By Raimundo t Referred To Contact Orthopedic Surgery Diagnoses Pain Foot Right Neuroma Gutierres's Right Sarika Velazquez M.D., Ph.D. [address] [place] [phone] [facility] Referral ID Status Reason Start Date Expiration Date Visits Re quested Visits Authorized [id number] Closed 08/14/2023 02/12/2025 1 1 Scheduling Instructions Ortho internal referral panel order, imaging before Consult visit Encounter Details Date Type Department Care Team (Late st Contact Info) Description 08/14/2023 Orders Only Division of Rheumatology in [place], [place] [address] [place] [phone] Sarika Velazquze M.D., Ph.D. [address] [place] [phone] Pain Foot Right (Primary Dx); Neuroma Gutierres's Right Social History Tobacco Use [...] week 07/12/2022 How often do you attend [facility] or jainism services? More than 4 times per year [...] Answer Date Recorded PHQ-2 Score 1 05/04/2019 [facility] - [...] your living situation today? I have a [facility] place to live 10/01/2022 Education Answer Date Recorded What is the highest level of school you have completed or the highest degree you have received? Bachelor's degree (e.g., BA, AB, BS) 01/11/2019 Sex and Gender Information Value Date Recorded Sex Assigned at Male 05/07/2017 7:50 PM BLEACHER OPERATOR Gender Identity Male 05/07/2017 7:50 PM BLEACHER OPERATOR Sexual Orientation Straight 05/07/2017 7: 50 PM BLEACHER OPERATOR documented as of this encounter Plan of Treatment Upcoming Encounters Date Type Department Care Team (Late st Contact Info) Description 11/19/2023 2:00 PM CDT Procedure visit Department of Dermatology in [place], [place] [address] [place] [phone] Caleb Vasquez M.D. [address] [place] [phone] 12/06/2023 7:30 AM CDT Ancillary Procedure Department of Ophthalmology in [place], [place] [address] [place] [phone] Jason Ann M.D. [address] [place] [phone] 12/06/2023 8:00 AM CDT Ancillary Procedure Department of Ophthalmology in [place], [place] [address] [place] [phone] Jason Ann M.D. [address] [place] [phone] 12/06/2023 8:45 AM CDT Procedure visit Department of Ophthalmology in [place], [place] [address] [place] [phone] Jason Ann M.D. [address] [place] [phone] 12/06/2023 9:00 AM CDT Ancillary Procedure Department of Ophthalmology in [place], [place] [address] [place] [phone] Jason Ann M.D. [address] [place] [phone] 12/06/2023 9:30 AM CDT Office Visit Department of Ophthalmology in [place], [place] [address] [place] [phone] Jason Ann M.D. 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 Jesus Jeffries MD External Primary Care Physician 12/21/22 documented as of this encounter
--- NOTE | 2023-12-17 08:42 | W.PM.SLEEP ---
Sleep Study Details Details Interpreting Provider: Emily Date of Sleep Study: 11/11/23 Sleep Study Details: STUDY TYPE:? Hospital-based with CPAP ? BMI:? 28.8 ORDERING PROVIDER:? Ana INDICATION:? Concern about sleep apnea ? SLEEP SUMMARY:? Total sleep time 307 minutes RESPIRATORY SUMMARY:? Mean oxygen awake 93 asleep 91 minimum 82 30.5 minutes oxygen between 80 and 88% AHI per CMS guidelines 13.3, per rule 04/29/2021 Supine AHI per CMS guidelines 30, nonsupine AHI 9.8. Supine REM AHI is 72 new line CPAP titration was attempted up to a pressure of 7 but this only decreased AHI to 28.2. There were no central apneas and majority of the titration was done in the nonsupine position. This is viewed is an incomplete titration PERIODIC LIMB MOVEMENTS OF SLEEP:? Index is 0 pre and post treatment CARDIAC:? Awake 56 asleep 56 PVCs and PACs were noted IMPRESSION:? Mild obstructive sleep apnea per CMS guideline with significant supine and REM dependency. CPAP titration was incomplete RECOMMENDATION: Either repeat in-lab titration or send patient home on AutoSet CPAP pressure of 5 to a 17.
== END 2023-11-11 20:59 | disposition home or self-care (01) ==
LOC: SLEEP 20:59
PROVIDERS: PCP Family Medicine; Visit Provider Family Medicine
DX: G47.33 Obstructive sleep apnea (adult) (pediatric) (principal)
CPT/HCPCS: 95811

== ENCOUNTER 2023-11-20 11:58 | Outpatient (REF) | payer MEDICARE, OTHER, SELFPAY ==
[2023-11-20 13:24] LABS: Basophils Absolute Auto 0.03 K/uL (0.00-0.30); Basophils Percent Auto 0.4 % (0.0-3.0); Eosinophils Absolute Auto 0.16 K/uL (0.00-0.50); Eosinophils Percent Auto 2.1 % (0.0-7.0); Hematocrit 46.5 % (37.0-53.0); Hemoglobin* 15.7 gm/dL (13.5-17.5); Immature Granulocytes Abs Auto 0.01 K/uL (0.00-0.30); Immature Granulocytes Pct Auto 0.1 %; Lymphocytes Absolute Auto 1.68 K/uL (0.90-2.90); Lymphocytes Percent Auto 21.8 % (20-44); Mean Corpuscular HGB Conc 34 gm/dL (32-36); Mean Corpuscular Hemoglobin 29 pg (26-34); Mean Corpuscular Volume 87 fL (80-100); Monocytes Percent Auto 14.2 % (0.0-11.0); Neutrophils Absolute Auto 4.72 K/uL (1.7-7.0); Neutrophils Percent Auto 61.4 % (42.0-72.0); Platelet Count* 172 K/uL (140-440); RDW Coefficient of Variation % 12.2 % (11.5-15.5); Red Blood Count 5.37 m/uL (4.30-5.90); White Blood Count* 7.69 K/uL (4.50-11.00)
[2023-11-20 13:25] LABS: Slide Review Reflex No
[2023-11-20 13:35] LABS: Chloride* 105 mmol/L (96-114); Potassium* 4.2 mmol/L (3.6-5.1); Sodium* 140 mmol/L (135-149)
[2023-11-20 13:38] LABS: Anion Gap 7 mEq/L (7-15); Blood Urea Nitrogen* 21 mg/dL (7-30); Carbon Dioxide* 28 mmol/L (20-32); Creatinine* 1.1 mg/dL (0.5-1.5); Estimated Glomerular Filt Rate 73 ml/min
[2023-11-20 13:39] LABS: Calcium* 9.9 mg/dL (8.4-10.6); Glucose* 97 mg/dL (60-115)
[2023-11-20 13:49] LABS: Creatinine Urine 161.5 mg/dL
[2023-11-20 13:53] LABS: Microalbumin Creatinine Ratio 10 mg/g (0-30); Microalbumin Urine 2 mg/dL
[2023-11-21 21:17] LABS: Tacrolimus by HPLC-MS/MS 7.7 ng/mL
== END 2023-11-20 11:59 | disposition home or self-care (01) ==
LOC: NPINS 11:58
PROVIDERS: PCP Family Medicine; Visit Provider Nurse Practitioner Primary Care
DX: D84.9 Immunodeficiency, unspecified (principal); Z94.0 Kidney transplant status; Z79.899 Other long term (current) drug therapy
CPT/HCPCS: 80048; 80197; 82043; 82570; 85025

== ENCOUNTER 2024-05-21 07:55 | Outpatient (CLI) | payer MEDICARE, OTHER, SELFPAY | END 2024-05-21 07:56 | disposition home or self-care (01) | LOC: NFLDREF 05-25 03:37 | PROVIDERS: PCP Family Medicine; Referring Provider Family Medicine; Visit Provider Family Medicine | DX: E78.5 Hyperlipidemia, unspecified (principal); M10.9 Gout, unspecified; I11.0 Hypertensive heart disease with heart failure; D50.9 Iron deficiency anemia, unspecified | CPT/HCPCS: 80053; 80061; 84550 ==

== ENCOUNTER 2024-08-12 08:07 | Outpatient (CLI) | payer MEDICARE, SELFPAY ==
[2024-08-14 03:36] LABS: Tacrolimus by HPLC-MS/MS 7.4 ng/mL
== END 2024-08-12 08:08 | disposition home or self-care (01) ==
LOC: NPINS 08:09
PROVIDERS: PCP Family Medicine; Visit Provider Internal Medicine Nephrology
DX: D84.9 Immunodeficiency, unspecified (principal); Z79.899 Other long term (current) drug therapy; Z94.0 Kidney transplant status
CPT/HCPCS: 80048; 80197; 82043; 82570; 85025

== ENCOUNTER → 2024-09-01 10:47 | Outpatient (RCR) | payer MEDICARE, SELFPAY ==
[2023-01-08 10:47] LABS: Basophils Absolute Auto 0.04 K/uL (0.00-0.30); Basophils Percent Auto 0.6 % (0.0-3.0); Eosinophils Absolute Auto 0.33 K/uL (0.00-0.50); Eosinophils Percent Auto 5.1 % (0.0-7.0); Hematocrit 45.1 % (37.0-53.0); Hemoglobin* 15.4 gm/dL (13.5-17.5); Lymphocytes Absolute Auto 1.64 K/uL (0.90-2.90); Lymphocytes Percent Auto 25.6 % (20-44); Mean Corpuscular HGB Conc 34 gm/dL (32-36); Mean Corpuscular Hemoglobin 30 pg (26-34); Mean Corpuscular Volume 89 fL (80-100); Monocytes Percent Auto 13.9 % (0.0-11.0); Neutrophils Absolute Auto 3.51 K/uL (1.7-7.0); Neutrophils Percent Auto 54.8 % (42.0-72.0); Platelet Count* 179 K/uL (140-440); RDW Coefficient of Variation % 12.2 % (11.5-15.5); Red Blood Count 5.08 m/uL (4.30-5.90); White Blood Count* 6.41 K/uL (4.50-11.00)
[2023-01-08 10:51] LABS: Chloride* 102 mmol/L (96-114); Slide Review Reflex No; Sodium* 139 mmol/L (135-149)
[2023-01-08 10:54] LABS: Creatinine* 1.1 mg/dL (0.5-1.5); Estimated Glomerular Filt Rate 74 ml/min
[2023-01-08 10:55] LABS: Anion Gap 7 mEq/L (7-15); Blood Urea Nitrogen* 22 mg/dL (7-30); Calcium* 9.8 mg/dL (8.4-10.6); Carbon Dioxide* 30 mmol/L (20-32); Glucose* 91 mg/dL (60-115)
[2023-01-08 11:11] LABS: Creatinine Urine 112.1 mg/dL
[2023-01-08 11:15] LABS: Microalbumin Creatinine Ratio 0 mg/g (0-30); Microalbumin Urine 1 mg/dL
[2023-01-10 14:23] LABS: Tacrolimus by HPLC-MS/MS 5.7 ng/mL
[2023-08-01 10:36] LABS: Basophils Absolute Auto 0.04 K/uL (0.00-0.30); Basophils Percent Auto 0.5 % (0.0-3.0); Eosinophils Absolute Auto 0.17 K/uL (0.00-0.50); Eosinophils Percent Auto 2.2 % (0.0-7.0); Hematocrit 45.8 % (37.0-53.0); Hemoglobin* 15.9 gm/dL (13.5-17.5); Immature Granulocytes Abs Auto 0.01 K/uL (0.00-0.30); Immature Granulocytes Pct Auto 0.1 %; Lymphocytes Absolute Auto 1.76 K/uL (0.90-2.90); Mean Corpuscular HGB Conc 35 gm/dL (32-36); Mean Corpuscular Hemoglobin 30 pg (26-34); Mean Corpuscular Volume 87 fL (80-100); Monocytes Percent Auto 12.3 % (0.0-11.0); Neutrophils Absolute Auto 4.74 K/uL (1.7-7.0); Neutrophils Percent Auto 61.9 % (42.0-72.0); Platelet Count* 190 K/uL (140-440); Red Blood Count 5.24 m/uL (4.30-5.90); White Blood Count* 7.66 K/uL (4.50-11.00)
[2023-08-01 10:38] LABS: Slide Review Reflex No
[2023-08-01 10:43] LABS: Chloride* 104 mmol/L (96-114); Potassium* 4.3 mmol/L (3.6-5.1); Sodium* 139 mmol/L (135-149)
[2023-08-01 10:46] LABS: Anion Gap 6 mEq/L (7-15); Blood Urea Nitrogen* 28 mg/dL (7-30); Carbon Dioxide* 29 mmol/L (20-32); Creatinine* 1.1 mg/dL (0.5-1.5); Estimated Glomerular Filt Rate 73 ml/min; Glucose* 90 mg/dL (60-115)
[2023-08-01 10:47] LABS: Calcium* 9.3 mg/dL (8.4-10.6)
[2023-08-01 10:55] LABS: Creatinine Urine 21.6 mg/dL
[2023-08-01 11:00] LABS: Microalbumin Creatinine Ratio 40 mg/g (0-30); Microalbumin Urine < 1 mg/dL
[2023-08-03 10:26] LABS: Tacrolimus by HPLC-MS/MS 7.4 ng/mL
[2023-08-21 11:28] LABS: Basophils Absolute Auto 0.03 K/uL (0.00-0.30); Basophils Percent Auto 0.4 % (0.0-3.0); Eosinophils Absolute Auto 0.21 K/uL (0.00-0.50); Eosinophils Percent Auto 3.1 % (0.0-7.0); Hematocrit 45.4 % (37.0-53.0); Hemoglobin* 15.7 gm/dL (13.5-17.5); Immature Granulocytes Abs Auto 0.01 K/uL (0.00-0.30); Immature Granulocytes Pct Auto 0.1 %; Lymphocytes Absolute Auto 1.88 K/uL (0.90-2.90); Lymphocytes Percent Auto 27.8 % (20-44); Mean Corpuscular HGB Conc 35 gm/dL (32-36); Mean Corpuscular Hemoglobin 30 pg (26-34); Mean Corpuscular Volume 88 fL (80-100); Monocytes Percent Auto 11.2 % (0.0-11.0); Neutrophils Absolute Auto 3.87 K/uL (1.7-7.0); Neutrophils Percent Auto 57.4 % (42.0-72.0); Platelet Count* 200 K/uL (140-440); RDW Coefficient of Variation % 11.9 % (11.5-15.5); Red Blood Count 5.18 m/uL (4.30-5.90); White Blood Count* 6.76 K/uL (4.50-11.00)
[2023-08-21 11:32] LABS: Chloride* 105 mmol/L (96-114); Potassium* 4.3 mmol/L (3.6-5.1); Sodium* 141 mmol/L (135-149)
[2023-08-21 11:35] LABS: Anion Gap 6 mEq/L (7-15); Blood Urea Nitrogen* 19 mg/dL (7-30); Carbon Dioxide* 30 mmol/L (20-32); Estimated Glomerular Filt Rate 82 ml/min; Slide Review Reflex No
[2023-08-21 11:36] LABS: Calcium* 9.5 mg/dL (8.4-10.6); Glucose* 87 mg/dL (60-115)
[2023-08-21 11:56] LABS: Creatinine Urine 38.8 mg/dL
[2023-08-21 12:00] LABS: Microalbumin Creatinine Ratio 100 mg/g (0-30); Microalbumin Urine 4 mg/dL
[2023-08-24 01:09] LABS: Tacrolimus by HPLC-MS/MS 7.8 ng/mL
[2024-04-20 11:06] LABS: Basophils Absolute Auto 0.04 K/uL (0.00-0.30); Basophils Percent Auto 0.5 % (0.0-3.0); Eosinophils Absolute Auto 0.27 K/uL (0.00-0.50); Eosinophils Percent Auto 3.3 % (0.0-7.0); Hematocrit 46.5 % (37.0-53.0); Hemoglobin* 15.9 gm/dL (13.5-17.5); Immature Granulocytes Abs Auto 0.02 K/uL (0.00-0.30); Immature Granulocytes Pct Auto 0.2 %; Lymphocytes Percent Auto 18.6 % (20-44); Mean Corpuscular HGB Conc 34 gm/dL (32-36); Mean Corpuscular Hemoglobin 30 pg (26-34); Mean Corpuscular Volume 87 fL (80-100); Neutrophils Absolute Auto 5.56 K/uL (1.7-7.0); Neutrophils Percent Auto 67.4 % (42.0-72.0); Platelet Count* 203 K/uL (140-440); RDW Coefficient of Variation % 12.4 % (11.5-15.5); Red Blood Count 5.33 m/uL (4.30-5.90); White Blood Count* 8.26 K/uL (4.50-11.00)
[2024-04-20 11:11] LABS: Chloride* 101 mmol/L (96-114); Potassium* 4.5 mmol/L (3.6-5.1); Sodium* 138 mmol/L (135-149)
[2024-04-20 11:13] LABS: Estimated Glomerular Filt Rate 81 ml/min; Slide Review Reflex No
[2024-04-20 11:14] LABS: Blood Urea Nitrogen* 25 mg/dL (7-30); Calcium* 9.8 mg/dL (8.4-10.6); Carbon Dioxide* 29 mmol/L (20-32); Glucose* 92 mg/dL (60-115)
[2024-04-20 11:33] LABS: Anion Gap 8 mEq/L (7-15)
[2024-04-20 11:52] LABS: Creatinine Urine 170.5 mg/dL
[2024-04-20 11:57] LABS: Microalbumin Creatinine Ratio 20 mg/g (0-30); Microalbumin Urine 4 mg/dL
[2024-04-22 22:22] LABS: Tacrolimus by HPLC-MS/MS 7.1 ng/mL
== END | disposition home or self-care (01) ==
LOC: LAB 01-08 09:55
PROVIDERS: PCP Family Medicine; Visit Provider Nurse Practitioner Primary Care
DX: D84.9 Immunodeficiency, unspecified (principal); Z79.899 Other long term (current) drug therapy; Z94.0 Kidney transplant status
CPT/HCPCS: 36415; 80048; 80197; 82043; 82570; 85025

== ENCOUNTER 2024-10-26 09:59 | Outpatient (CLI) | payer MEDICARE, SELFPAY | END 2024-10-26 10:00 | disposition home or self-care (01) | PROVIDERS: PCP Family Medicine; Visit Provider Internal Medicine | DX: I10 Essential (primary) hypertension (principal); I35.1 Nonrheumatic aortic (valve) insufficiency | CPT/HCPCS: 93306 ==

== ENCOUNTER 2024-10-30 09:09 | Outpatient (CLI) | payer MEDICARE, SELFPAY ==
--- NOTE | 2024-10-30 09:15 | CRLHL7_ITS ---
For Patients: As a result of the Century Cures Act, medical imaging exams and procedure reports are released immediately into your electronic medical record. You may view this report before your referring provider. If you have questions, please contact your health care provider. CLINICAL HISTORY: Left carotid stenosis TECHNIQUE: The carotid circulations and the vertebral arteries in the neck were examined with middleton-scale ultrasound, color-flow and Doppler spectral analysis. Degrees of stenosis were determined using SRU 2002 Consensus Panel Criteria. FINDINGS: Sonographic images demonstrate bilateral atherosclerotic plaque formation without suspicious soft tissue mass. There was antegrade blood flow demonstrated within the vertebral arteries and the subclavian arteries demonstrated a normal triphasic waveform. The spectral Doppler tracings of the common carotid, internal and external carotid arteries demonstrate some abnormal turbulence/spectral broadening within the proximal left ICA. Elevated velocity within the left external carotid artery measuring 246 cm/second. There was elevation of peak systolic blood flow within the left proximal ICA measuring 148 cm/second which would indicate a hemodynamically-significant stenosis by SRU criteria. The ICA/CCA peak systolic velocity ratio measures 0.9 on the right and 2.6 on the left. IMPRESSION: 50-69 percent stenosis of the left proximal ICA. Less than 50 percent stenosis of the right ICA. Dictated by Tuan Leslie MD @ 10/30/2024 2:37:56 PM (Electronically Signed)
== END 2024-10-30 09:10 | disposition home or self-care (01) ==
PROVIDERS: PCP Family Medicine; Visit Provider Internal Medicine
DX: I65.22 Occlusion and stenosis of left carotid artery (principal); I65.21 Occlusion and stenosis of right carotid artery
CPT/HCPCS: 93880